=== PATIENT | female | born 1965 | race Caucasian/White ===

== ENCOUNTER 2020-05-22 10:16 | Outpatient (CLI) | payer BC, SELFPAY ==
--- NOTE | ~2020-05-22 | MM_ITS ---
EXAMINATION: MM screening [facility] BI w alex HISTORY: Screening mammogram TECHNIQUE: Craniocaudal and mediolateral oblique 3-D tomosynthesis images were obtained and synthetic 2-D images were generated. CAD analysis was submitted and interpreted. COMPARISON: 04/26/2019, 12/30/2017, 12/28/2016 BREAST PARENCHYMAL COMPOSITION: The breasts are heterogeneously dense, which may obscure small masses . FINDINGS: There is no evidence of suspicious mass, calcification, or architectural distortion to sugg est malignancy in either breast. There has been no suspicious interval change. IMPRESSION: 1. No mammographic evidence of malignancy. 2. Recommend routine screening mammography in one year. BI-RADS Category 1: Negative Reviewed, dictated and finalized at location A.
== END 2020-05-22 10:17 | disposition home or self-care (01) ==
PROVIDERS: PCP Emergency Medicine; Visit Provider Nurse Practitioner Obstetrics & Gynecology
DX: Z12.31 Encounter for screening mammogram for malignant neoplasm of breast (principal)
CPT/HCPCS: 77063; 77067

== ENCOUNTER 2020-08-27 11:27 | Outpatient (CLI) | payer BC, SELFPAY ==
--- NOTE | 2020-08-27 11:40 | ECG_ITS ---
Measurements Intervals [place] Rate: 44 P: 60 WI: 187 QRS: 34 QRSD: 86 T: 10 QT: 459 QTc: 395 Interpretive Statements SINUS BRADYCARDIA CANNOT RULE OUT SEPTAL INFARCT, AGE INDETERMINATE BORDERLINE ST-T WAVE ABNORMALITY- INFERIOR LEADS ABNORMAL ECG Electronically Signed On 08-27-2020 12:01:53 DETENTION SERGEANT by Samuel Brennan D.O.
== END 2020-08-27 11:28 | disposition home or self-care (01) ==
PROVIDERS: PCP Family Medicine; Visit Provider Family Medicine
DX: R00.1 Bradycardia, unspecified (principal); R94.31 Abnormal electrocardiogram [ECG] [EKG]
CPT/HCPCS: 93005

== ENCOUNTER 2020-08-29 15:10 | Outpatient (CLI) | payer BC, SELFPAY ==
--- NOTE | ~2020-08-29 | XR_ITS ---
EXAMINATION: XR chest 2V 08/29/2020 15:28 INDICATION: Shortness of breath PROCEDURE: 2 view chest COMPARISON: 07/24/2019 FINDINGS: The lungs are clear. The cardiomediastinal silhouette is within normal limits. There are no pleural effusions. There is no pneumothorax suspected. IMPRESSION: 1: NO ACUTE CARDIOPULMONARY DISEASE. Reviewed, dictated and finalized at location B. K REPAIRER
== END 2020-08-29 15:11 | disposition home or self-care (01) ==
LOC: ANHIMG 15:13
PROVIDERS: PCP Family Medicine; Visit Provider Family Medicine
DX: R06.02 Shortness of breath (principal)
CPT/HCPCS: 71046

== ENCOUNTER 2022-01-27 16:25 | Outpatient (CLI) | payer BC, SELFPAY ==
--- NOTE | ~2022-01-27 | MM_ITS ---
EXAMINATION: MM screening [facility] BI w alex HISTORY: Screening mammogram TECHNIQUE: Craniocaudal and mediolateral oblique 3-D tomosynthesis images were obtained and synthetic 2-D images were generated. CAD analysis was submitted and interpreted. COMPARISON: , 04/26/2019, 12/30/2017 bilateral screening mammogram examinations. BREAST PARENCHYMAL COMPOSITION: There are scattered areas of fibroglandular density. FINDINGS: There is no evidence of suspicious mass, calcification, or architectural distortion to sugg est malignancy in either breast. There has been no suspicious interval change. IMPRESSION: 1. No mammographic evidence of malignancy. 2. Recommend routine screening mammography in one year. BI-RADS Category 1: Negative Reviewed, dictated and finalized at location A.
--- NOTE | ~2022-01-27 | DEXA_ITS ---
Bone Density Report Name: DANE MATIAS Age: 56 Sex: Female Ethnicity: White Date of : 1965 Indication: postmenopausal; screening for osteoporosis; parental hip fracture; height loss; prior fracture; Referring Provider: ARIAN, DELIA Estrada Study: Bone densitometry was performed. Exam Date: January 27, 2022 Accession number: [id number] Bone Density: Region BMD T-score Z-score Classification AP Spine(L1-L4) 0.890 -1.4 -0.1 Osteopenia Femoral Neck (Left) 0.757 -0.8 0.4 Normal Total Hip (Left) 0.949 0.1 0.9 Normal Femoral Neck (Right) 0.759 -0.8 0.4 Normal Total Hip (Right) 0.939 0.0 0.8 Normal Total Hip Mean 0.944 0.1 0.9 Normal World Health Organization criteria for BMD impression classify patients as: Normal (T-score at or above -1.0), Osteopenia (T-score between -1.0 and -2.5), or Osteoporosis (T-score at or below -2.5). 10-year Fracture Risk(1): Major Osteoporotic Fracture 22% Hip Fracture 0.5% Reported Risk Factors: [place] (), Neck BMD=0.757, BMI=26.1, previous fracture, parental fracture (1) FRAX(R) Version 3.08. Fracture probability calculated for an untreated patient. Fracture probability may be lower if the patient has received treatment. Clinical Information Provided by Patient: Has had a low trauma fracture Parent has had a hip fracture Has used the following medications: Vitamin D Patient maximum height was 67.5 Menopause Age: 49 Drinks caffeinated beverages Onset of menses at age 15 Number of children 1 Impression: The patient has low bone mass, based on the Total Spine T-score. The patient has an estimated ten-year risk of hip fracture of 0.5% and an estimated ten-year risk of major fracture of 22%, based on the WHO FRAX algorithm. The patient has risk factors, including: parental hip fracture, previous fracture. Discussion: BONE DENSITY IS LOW AT ONE OR MORE SKELETAL SITES. THE PATIENT'S BMD AND CLINICAL RISK FACTORS CONTRIBUTE TO THIS PATIENT'S INCREASED RISK OF FRACTURE. This patient's lowest T-score is low at one or more skeletal sites. It meets the World Health Organization's (WHO) criteria for ?low bone mass? (T-score between -1.0 and -2.5). The patient's 10-year risk of a major osteoporotic fracture as calculated by FRAX exceeds the threshold where pharmacological therapy is recommended by the National Osteoporosis Foundation (NOF). However, all treatment decisions require clinical judgment and consideration of individual patient factors, including patient preferences, comorbidities, previous drug use, risk factors not captured in the FRAX model (e.g., frailty, falls, vitamin D deficiency, increased bone turnover, interval significant decline in bone density) and possible under or overestimation of fracture risk by FRAX. The patient
== END 2022-01-27 16:26 | disposition home or self-care (01) ==
LOC: ANHIMG 16:28
PROVIDERS: PCP Family Medicine; Visit Provider Nurse Practitioner Obstetrics & Gynecology
DX: Z12.31 Encounter for screening mammogram for malignant neoplasm of breast (principal); Z78.0 Asymptomatic menopausal state; M85.88 Other specified disorders of bone density and structure, other site
CPT/HCPCS: 77063; 77067; 77080

== ENCOUNTER 2022-11-18 17:32 | Emergency (ER) | payer BC, SELFPAY ==
--- NOTE | 2022-11-18 17:40 | ED.URI ---
HPI - URI/Sore Throat General Chief Complaint: Upper Respiratory Infection Stated Complaint: sore throat Time Seen by Provider: 11/18/22 17:40 History of Present Illness HPI Narrative: 56-year-old female presented for complaint of sore throat, onset this morning. She denies any associated symptoms. She denies sick contacts. She has taken DayQuil and ibuprofen for symptoms today. Related Data Home Medications Medication Instructions Recorded Confirmed multivitamin (Daily Multi-Vitamin 1 tablet PO DAILY 08/27/20 10/29/21 tablet) cholecalciferol (vitamin D3) 10 10 mcg PO DAILY 05/20/22 mcg (400 unit) capsule collagen, hydrolyzed 1 tablet PO 05/20/22 gram-ascorbate calcium 10 mg tablet tumeric 100 mg-saman 150 mg-olive cap PO 05/20/22 50 mg-oreg 150 mg-caprylate capsule Allergies Allergy/AdvReac Type Severity Reaction Status Date / Time midazolam Allergy Unknown RASH, Verified 11/18/22 17:39 AND HARD TO BREATH Review of Systems Review of Systems: CONSTITUTIONAL: Denies body aches, fever, chills, or sweats. EYES: Denies visual changes, redness, or discharge. ENT: Denies rhinorrhea, congestion, or otalgia. CARDIOVASCULAR: Denies chest pain, palpitations, or edema. RESPIRATORY: Denies dyspnea. GASTROINTESTINAL: Denies abdominal pain, nausea, vomiting, or diarrhea. SKIN: Denies rash, itching, or wounds. MUSCULOSKELETAL: Denies back pain, joint pain, or myalgia. NEUROLOGIC: Denies headache PMFSH Past Medical History Medical History (Updated 11/18/22 @ 17:53 by Bindu Briseno APRN) Alopecia Degenerative tear of left medial meniscus Vitamin D deficiency Surgical History Surgical History (Updated 11/18/22 @ 17:50 by Bindu Briseno APRN) History of arthroscopy of left knee (~2017) History of (~2001) History of elbow surgery (~1995) Hx of tonsillectomy Family History Family History Mother Patient's mother is , Onset Age: 87 Father Patient's father is , Onset Age: 89 Mother Family history of arthritis Social History Social History Smoking status: Never smoker Second hand tobacco smoke exposure: No Alcohol intake: current Exam Narrative: GENERAL: well-appearing, no acute distress. EYES: conjunctivae clear ENT: Mucous membranes moist. TM pearly calvillo with normal light reflex bilaterally; no tragal tenderness. Oropharynx mildly erythematous without lesions. Tonsils absent. No drooling, no hoarseness, no trismus, uvula midline. No tripod positioning, hot potato voice, or soft palate swelling. NECK: Supple. No lymphadenopathy CHEST: Clear to auscultation, breath sounds equal. No respiratory distress, speaks in full sentences. HEART: Regular rate and rhythm. No murmur heard. SKIN: Warm, dry, no rash. NEURO: Alert and oriented x3. Course Course Emergency Course: Patient is aware of diagnosis, understands and agrees to treatment plan. Anticipatory guidance given. Patient agrees to follow-up as directed and is aware of reasons to seek care at the emergency department. Portions of this record may have been created with voice recognition software Level of Care: Express Care Visit Vital Signs Vital signs: Vital Signs Temperature 97.7 F 11/18/22 17:44 Pulse Rate 58 L 11/18/22 17:44 Respiratory Rate 16 11/18/22 17:44 Blood Pressure 119/75 11/18/22 17:44 Pulse Oximetry 100 11/18/22 17:44 Temperature 97.7 F 11/18/22 17:44 Pulse Rate 58 L 11/18/22 17:44 Respiratory Rate 16 11/18/22 17:44 Blood Pressure 119/75 11/18/22 17:44 Pulse Oximetry 100 11/18/22 17:44 MDM - URI/Sore Throat MDM Narrative Medical decision making narrative: strep result reviewed with pt. Advise supportive treatments. Patient is appropriate for outpatient treatment and follow-up.
[2022-11-18 17:44] VITALS: BP 119/75; PULSE 58; RESP 16; TEMP 36.5; O2SAT 100
== END 2022-11-18 17:57 | disposition home or self-care (01) ==
PROVIDERS: Emergency Provider Nurse Practitioner Family; PCP Family Medicine
DX: J02.9 Acute pharyngitis, unspecified (principal); L65.9 Nonscarring hair loss, unspecified
CPT/HCPCS: 87081; 87880; 99213; G0463

== ENCOUNTER 2023-05-03 07:27 | Outpatient (CLI) | payer BC, SELFPAY ==
--- NOTE | ~2023-05-03 | MM_ITS ---
EXAMINATION: MM screening [facility] BI w alex HISTORY: Screening mammogram TECHNIQUE: Craniocaudal and mediolateral oblique 3-D tomosynthesis images were obtained and synthetic 2-D images were generated. CAD analysis was submitted and interpreted. COMPARISON: 01/27/2022, 05/22/2020, 04/26/2019 BREAST PARENCHYMAL COMPOSITION: The breasts are heterogeneously dense, which may obscure small masses . FINDINGS: No suspicious mass, calcification, or architectural distortion are identified in either wan ast to suggest malignancy. There has been no suspicious interval change. IMPRESSION: 1. No mammographic evidence of malignancy. 2. Recommend routine screening mammography in one year. BI-RADS Category 1: Negative Reviewed, dictated and finalized at location A.
== END 2023-05-03 07:28 | disposition home or self-care (01) ==
PROVIDERS: PCP Family Medicine; Visit Provider Family Medicine
DX: Z12.31 Encounter for screening mammogram for malignant neoplasm of breast (principal)
CPT/HCPCS: 77063; 77067

== ENCOUNTER 2023-09-05 08:00 | Outpatient (RCR) | payer BC, SELFPAY ==
--- NOTE | 2023-08-11 16:44 | PTOPEVAL1 ---
Assessment and note entered by Sincere Tavares, PT, DPT Evaluation Information Assessment Status Evaluation Diagnosis gurjit knee OA Subjective Information Pt states she is going to have to have knee replacement surgery in the next 1-2 years. She states she has done therapy in the last few years, she states that was useless. She states imaging shows bone on bone knee arthritis. She states she can do almost anything she wants, she plays pickleball, bikes, exercises, and does lots of walking. She states she really only has pain when she over exercises or wears poor footwear. Reported Pain Level Pain Score 0: Self Report Assessment PT Clinical Summary Luna presents to therapy today for her initial evaluation with a diagnosis of gurjit knee OA. Today she demonstrates good BLE strength and ROM. She demonstrates decreased lateral hip strength and body mechanics with functional squatting. Today she was instructed in a HEP to complete at home to prep for knee surgery, educated on proper body mechanics, and answered any pt questions. She would like to follow up in a month to review her HEP and manager body taught today. Plan of Care Interventions Gait Training,Neuro Re-education,Patient/Caregiver Educati,Therapeutic Activities,Therapeutic Exercise PT Services Indicated Yes Treatment Frequency and follow up in 1 month Duration These treatments will address the objective and functional deficits as defined above. The patient will be advanced safely and appropriately in order for the patient to progress towards his/her prior level of function. Additional exercises will be introduced and as well as a comprehensive home exercise program upon discharge, if needed, ?to ensure carryover of functional gains achieved in the clinic. This treatment plan has been reviewed and agreement upon by the patient.
--- NOTE | 2023-09-05 08:55 | PTOPDC ---
Assessment and note entered by Sincere Tavares, PT, DPT Evaluation Information Assessment Status Discharge Diagnosis gurjit knee OA Subjective Information Pt states she initially scored her LEFS scale wrong the first day, she scored herself a 48/80 compared to a 67/80 on the initial date. Pt states she has been completing her exercises daily at home, she states it is helping with her mobility, but not with her pain. Pt states her knee will buckle, she wanted to be sure there was a note of that. Reported Pain Level Pain Score 3: Self Report Assessment PT Clinical Summary Luna presents to therapy today for her progress report with a diagnosis of gurjit knee OA. She has completed her HEP for the last month and is here today to review. She continues to demonstrates good functional knee strength just needs intermittent cues for alignment. Her HEP was progressed today and she plans to continue this until she gets her TKA scheduled. Plan of Care PT Services Indicated No
== END 2023-09-05 10:08 | disposition home or self-care (01) ==
LOC: ANHGOSHPT 08:00
PROVIDERS: PCP Family Medicine; Visit Provider Orthopaedic Surgery
DX: M17.0 Bilateral primary osteoarthritis of knee (principal)
CPT/HCPCS: 97110; 97161; 97530

== ENCOUNTER 2023-10-05 09:44 | Outpatient (CLI) | payer BC, SELFPAY ==
--- NOTE | 2023-10-05 09:47 | ECG_ITS ---
Measurements Intervals [place] Rate: 50 P: 72 [place]: 187 QRS: 36 QRSD: 94 T: -13 QT: 420 QTc: 383 Interpretive Statements SINUS BRADYCARDIA CANNOT RULE OUT SEPTAL INFARCT, AGE INDETERMINATE BORDERLINE ST-T WAVE ABNORMALITY- INFERIOR LEADS ABNORMAL ECG COMPARED TO ECG 08/27/2020 11:50:20 HEART RATE HAS INCREASED Electronically Signed On 10-05-2023 10:20:37 HYDRODYNAMICS PROFESSOR by Samuel Brennan D.O.
== END 2023-10-05 09:45 | disposition home or self-care (01) ==
LOC: ANHCARD 09:47
PROVIDERS: PCP Family Medicine; Visit Provider Orthopaedic Surgery
DX: R00.1 Bradycardia, unspecified (principal); R06.02 Shortness of breath
CPT/HCPCS: 93005

== ENCOUNTER 2023-10-25 14:44 | Outpatient (CLI) | payer BC, SELFPAY ==
--- NOTE | ~2023-10-25 | CT_ITS ---
EXAMINATION: CT LE RT wo con DATE: 10/25/2023 15:34 INDICATION: Right knee primary osteoarthritis. TECHNIQUE: Computed tomography (CT) of the right lower limb was performed without intravenous contras t. Automated exposure control and iterative reconstruction technique were employed. The dose-length p roduct was 1795.42 mGy-cm. COMPARISON: Right knee radiographs 07/28/2023 FINDINGS: Bone alignment is normal. No fracture. There is mild right hip osteoarthritis. Right knee d emonstrates severe osteoarthritis of the medial compartment and mild osteoarthritis of the lateral an d patellofemoral compartments. There is a small knee joint effusion. There is a moderate-sized Faye' s cyst. IMPRESSION: 1. Severe right knee osteoarthritis. 2. Small knee joint effusion. 3. Moderate-sized Faye's cyst. 4. Mild right hip osteoarthritis. Reviewed, dictated and finalized at location A. AL TECHNOLOGY ADVISOR
== END 2023-10-25 14:45 | disposition home or self-care (01) ==
PROVIDERS: PCP Family Medicine; Visit Provider Orthopaedic Surgery
DX: M17.11 Unilateral primary osteoarthritis, right knee (principal); M25.461 Effusion, right knee; M71.21 Synovial cyst of popliteal space [Baker], right knee; M16.11 Unilateral primary osteoarthritis, right hip
CPT/HCPCS: 73700

== ENCOUNTER 2023-12-26 12:14 | Outpatient (CLI) | payer BC, SELFPAY ==
[2023-12-26 14:40] LABS: Basophils Absolute Auto 0.1 K/mm3 (0.0-0.1); Basophils Percent Auto 0.9 % (0.2-1.2); Eosinophils Absolute Auto 0.2 K/mm3 (0-0.3); Hematocrit 39.9 % (37.0-47.0); Hemoglobin 12.9 g/dL (12.0-15.0); Immature Granulocyte Absolute 0.01 K/mm3 (0.00-0.031); Immature Granulocyte Percent A 0.1 % (0-0.5); Lymphocytes Absolute Auto 2.25 K/mm3 (0.9-3.2); Lymphocytes Percent Auto 29.6 % (18.3-44.2); Mean Corpuscular HGB Conc 32.3 g/dl (32-36); Mean Corpuscular Hemoglobin 31.2 pg (26-34); Mean Corpuscular Volume 96.6 fl (80-100); Mean Platelet Volume 11.4 fl (7.4-10.4); Monocytes Absolute Auto 0.7 K/mm3 (0.1-0.6); Monocytes Percent Auto 9.4 % (2.6-8.5); Neutrophils Absolute Auto 4.3 K/mm3 (1.3-6.7); Platelet Count Result 254 k/mm3 (150-375); Red Blood Count 4.13 M/mm3 (4.2-5.4); Red Cell Distribution Width 12.5 % (11.5-14.5); White Blood Count 7.6 K/mm3 (4.5-10.0)
[2023-12-26 14:52] LABS: Urine Cotinine NEGATIVE
[2023-12-26 14:52] LABS: Albumin Level 4.5 g/dL (3.5-5.1); Estimated Glomerular Filt Rate > 60; Glucose 90 mg/dL (65-110)
[2023-12-26 14:54] LABS: Hemoglobin A1C 5.4 % (<5.7)
[2023-12-26 15:53] LABS: MRSA (PCR) NOT DETECTED (NOT DETECTE)
== END 2023-12-26 12:15 | disposition home or self-care (01) ==
LOC: ANHSURGERY 12:19
PROVIDERS: PCP Family Medicine; Visit Provider Orthopaedic Surgery
DX: M17.11 Unilateral primary osteoarthritis, right knee (principal); Z01.818 Encounter for other preprocedural examination
CPT/HCPCS: 80307; 82040; 82565; 82947; 83036; 85025; 87641

== ENCOUNTER 2024-01-24 00:43 | Day surgery (SDC) | payer BC, SELFPAY ==
[2023-12-26 12:23] VITALS: BMI 26.5
--- NOTE | 2023-12-26 12:44 | PC.NURSE ---
Report to the Outpatient Waiting Room, entrance under the green pavilion located off [facility], at time 0800 on date __01/24/24 . Planned Procedure Time: __1000 . Time changes happen often and if your time is changed the preop area will call you the afternoon before. - You and your visitor will be asked to self-screen and do not enter if you have any COVID symptoms. - A mask is optional within the hospital at this time. Patients may have clear liquids (water, carbonated beverages, clear teas, apple juice) until 3 hours prior to surgery( 7:00AM ) with a maximum of 20 ounces. - No food from midnight until time of surgery - Infants may have breast milk until 4 hours before surgery, formula 6 hours prior to surgery. - Children will be allowed to drink immediately following surgery. If applicable, please bring a bottle or sippy cup to assist with drinking. Juice, water, soda, and popsicles are readily available. For infants on formula, please bring formula the day of surgery. Pacifiers are allowed. Take the following medications with a SIP of water the morning of surgery: __NONE DO NOT STOP ANY OF YOUR OTHER PRESCRIPTION MEDICATIONS PRIOR TO SURGERY ?EXCEPT THE FOLLOWING Medications to discontinue per physician _HOLD ALL VITAMINS AND SUPPLEMENTS _7 DAYS PRE OP PT STATES PER DR THOMAS.LAST DOSE 01/16/24 Please no make-up, nail honduran, hairspray, perfume, deodorant, or body powder the day of surgery. No jewelry (including any body piercings) or valuables the day of surgery, leave them at home. Please take a shower or bath the night before, or the morning of, surgery with an antibacterial soap. Wear comfortable, loose fitting clothing. Children are encouraged to wear pajamas. - Jewelry must be removed prior to entering the operating room. Rings and piercings that are not removed may be cut off. - The hospital will not accept responsibility for valuables. - Please leave all valuables, including medications, at home the day of surgery. If you are going home after surgery, a licensed auto transport driver must drive you home. - NO public transportation without another adult if you receive anesthesia. - We recommend that an adult stay with you for 24 hours following discharge. - We also recommend that you do not drive, make important decision, drink alcoholic beverages, or take any drugs that were not prescribed by your health care provider for at least 24 hours after your discharge time. Follow any additional instructions given to you from your surgeon. If you or anyone in your household have experienced Covid symptoms in the past week, please notify your surgeon or the nurse liaison at the phone number below for possible testing. VERBAL AND WRITTEN instructions given to ___PATIENT and asked if any additional questions and then verbalized understanding. Patient advised to call surgeon office or pre surgery nurse liaison [phone] if any additional questions.
[2023-12-26 12:51] VITALS: BP 117/74; PULSE 61; RESP 18; TEMP 36.5; O2SAT 99
[2024-01-24] VITALS (16 sets, daily range): BP systolic 99–135; BP diastolic 63–78; PULSE 60–653; RESP 10–20; TEMP 35.6–36.8; O2SAT 95–100; BMI 26.2
--- NOTE | ~2024-01-24 | XR_ITS ---
EXAMINATION: [id number] DATE: 01/24/2024 13:31 CDT INDICATION: Right total knee arthroplasty TECHNIQUE: 2 views right knee FINDINGS: There is a right total knee arthroplasty in expected position. Subcutaneous gas with fluid and air in the joint are consistent with recent surgery. No evidence of periprosthetic fracture. IMPRESSION: 1. Recent right total knee arthroplasty. Reviewed, dictated and finalized at location B.
[2024-01-24] MEDS: ACETAMINOPHEN 500 MG TABLET 1000 MG PO (08:43)
[2024-01-24] MEDS: LACTATED RINGERS 1,000 ML 30 ML IV CONT ×2 (08:50→12:48)
--- NOTE | 2024-01-24 09:06 | WPDANESEPPF ---
Anes - Initial Pre Proc Eval Procedure: Operation Date: 01/24/24 10:00 Proposed Procedures p Right Custom Total Knee Replacement - Vik Casey MD Date/Time: 01/24/24 09:06 Surgeon: iVk Casey MD Pre Op Diagnosis: Prim O A Right Knee Patient Data Age: 58 Gender: F Height: 1.7 m Weight: 76.9 kg Last Vital Signs Temp 36.5 C 12/26/23 12:51 Pulse 61 12/26/23 12:51 Resp 18 12/26/23 12:51 BP 117/74 12/26/23 12:51 Pulse Ox 99 12/26/23 12:51 O2 Del Method Room Air 12/26/23 12:51 Allergies Allergy/AdvReac Type Severity Reaction Status Date / Time midazolam Allergy Unknown RASH, Verified 01/24/24 08:35 AND HARD TO BREATH Home Medications Medication Instructions Recorded Confirmed Type multivitamin (Daily Multi-Vitamin 1 tablet PO DAILY 08/27/20 01/24/24 History tablet) cholecalciferol (vitamin D3) 10 10 mcg PO DAILY 05/20/22 01/24/24 History mcg (400 unit) capsule collagen, hydrolyzed 1 1 tablet PO DAILY 05/20/22 01/24/24 History gram-ascorbate calcium 10 mg tablet loratadine 10 mg tablet (Claritin) 10 mg PO DAILY 01/24/24 01/24/24 History Patient hx anesthesia problems: none Family hx anesthesia problems: none Results Review: All pre-operative results and documents have been reviewed as part of the pre-operative evaluation. [facility] Past Medical History Medical History (Updated 01/24/24 @ 09:07 by Mihai Harvey DO) Alopecia Bradycardia Degenerative tear of left medial meniscus Hypothyroidism Vitamin D deficiency Surgical History Surgical History History of arthroscopy of left knee (~2017) History of (~2001) History of elbow surgery (~1995) Hx of tonsillectomy Family History Family History Mother Patient's mother is , Onset Age: 87 Father Patient's father is , Onset Age: 89 Mother Family history of arthritis Social History Social History Smoking status: Never smoker Second hand tobacco smoke exposure: No Additional smoking assessment comments: DENIES ANY FORM OF TOBACCO USE Alcohol intake: current Drinks per week: 2 Lack of Transportation: No Lack of Food: Never True Current Housing: I Have Housing Concerned About Future Housing: No Difficulty Paying Gas/Electric Bills: No Difficulty Paying for Meds: No Currently Unemployed: No Education: Master's Degree or Higher Difficulty w/ Childcare or Family Care: No Living arrangements: with family Spiritual care concerns: No Anes - Eval Final PreProcedure Day of Procedure 01/24/24 09:06 Patient weight: overweight Heart: regular rate and rhythm Lungs: clear to auscultation Airway: Mallampati scale class II Neurological: alert and oriented Last oral intake: >/= 8 hours ASA classification: II Emergent: no Anesthetic plan: proceed Anesthesia type and monitoring: general LMA and standard monitoring Results Review: All pre-operative results and documents have been reviewed as part of the pre-operative evaluation. Informed Consent: The patient's anesthetic plan and its attendant risks and benefits were discussed with the patient/family/POA. Questions were solicited and answers provided to the satisfaction of the patient/family/POA.
--- NOTE | 2024-01-24 09:43 | WPDHPUPDATE1 ---
History and Physical Update Update Date/Time: 01/24/24 09:43 History and Physical has been reviewed, including an updated exam of the patient. There are NO changes in the patient's condition. Risks, benefits, and alternatives have been discussed and questions answered. Patient agrees to proceed with procedure.
--- NOTE | 2024-01-24 09:53 | WPDANESPNB ---
Anes - Peripheral Nerve Block Date/Time: 01/24/24 09:53 I have discussed with the patient/family/POA the placement of a peripheral nerve block for post-operative pain management, including associated risks, benefits, complications, and side effects. Alternative methods of post-operative analgesia were detailed. Questions were solicited and answers provided to the satisfaction of the patient/family/POA. Time-Out: A pre-procedural Time-Out was completed immediately before starting the procedure and confirmed: Patient Identification, Site, Procedure, Patient Position and the Availability of Requisite Equipment. Clinical Indications: Acute post-operative pain management requested by the operative surgeon. Nerve Block Insertion Note Anes-nerve block: adductor canal right Patient position: supine Skin prep: chlorhexidine Needle: 22 gauge, stimulating, insulated echogenic needle. Needle length: 80 mm Technique: ultrasound Injectate: bupivacaine 0.5% with epi 5 mcg/ml (30cc - no epi) Observations: tolerated well Complications: none Procedure start time:: 1005 Procedure end time:: 100
[2024-01-24] MEDS: TRANEXAMIC ACID 1,000MG/ISO100 1,000 MG/100 ML BAG 200 MG IVPB (09:58)
[2024-01-24] MEDS: ceFAZolin 2 GM/D5W 50 ML 2 GM/50 ML BAG IVPB ×2 (10:18→17:25)
[2024-01-24] MEDS: SODIUM CHLORIDE 0.9% IV 37.7 ML, MORPHINE SULFATE INJ (*CRX) 2 MG, ROPivacaine HCL 1% 2... INFILTRATE (10:50)
[2024-01-24] MEDS: TRANEXAMIC ACID 1,000 MG/10 ML AMPUL 1000 MG IV PUSH (12:22)
--- NOTE | 2024-01-24 13:24 | P.OP_ITS ---
Procedure Note - Detailed Date of Procedure 01/24/24 Pre-op Diagnosis Right knee degenerative arthritis. Post-op Diagnosis Same Procedure Performed Total knee arthroplasty, right. Surgeon Vik Casey MD Children[employer] Literature Professor Roseann Bonilla PA-C Anesthesia General and Regional (Subsartorial block.) Findings Custom right total knee optimal fit. Slight PCL release. Anatomic tibial slope. No medial or lateral releases. Patella without significant disease. Subvastus quad sparing approach. Tourniquet during exposure and cementation only. Description of Procedure Preoperative antibiotics were given. The limb was prepped and draped in the u sual sterile fashion with a well-padded tourniquet high on the thigh. The limb was exsanguinated and the tourniquet inflated to 300 mmHg during exposure and cementation. A longitudinal incision was created just medial to the patella. A subvastus approach to the knee was performed. Arthrotomy was taken down through the joint capsule. No significant releases were initially taken. The femur was exposed and the F1 jig was applied. The coring tool was used to remove the cartilage for the F2 jig to sit flush with the bone. The jig was pinned and the distal cut carefully taken. Caliper measurements confirmed appropriate bony resections according to the preoperative templated plan. The F4 cutting jig for the femur was applied, at the standard rotation. The AP and anterior chamfer cuts were taken. The F5 jig was applied and the posterior chamfer cuts were taken. The tibia was prepared using the T1 jig, after removing cartilage for the jig contact points. Proper alignment was checked with the alignment paola. The tibia was cut using the T1u guide. Gap balancing was performed. Gap measurements were taken and the knee was trialed. Excellent alignment and soft tissue balancing was confirmed. The posterior cruciate ligament was recessed along the proximal tibia. Meniscal remnants were removed. The trial components were assembled. Excellent range of motion and proper soft tissue balancing were confirmed throughout the full range of motion. Patellar tracking was excellent. The knee was copiously irrigated periodically throughout the procedure. The real implants were cemented into position. Excess cement was carefully removed. The bipolar aquamantis device was used for additional hemostasis, as well as an additional dose of tranexamic acid. The wound was closed in layers with interrupted #1 Vicryl suture, #1 strata fix suture, 2-0 strata fix suture, 3-0 strata fix suture. Steri-Strips placed on the skin with the knee flexed. Sterile bulky dressing applied. The patient was brought to the recovery room in stable condition. There were no complications. Physician health information assistant, Roseann Bonilla PA-C, required for surgery; including patient positioning, draping, tissue retraction, maintaining instrument position, cement removal, wound closure, and dressing placement. Implants Conformis Custom total knee arthroplasty. Cemented. Cruciate retaining. 7C insert. Estimated Blood Loss 100 Drains No Complications No immediate complications Condition Stable Disposition PACU [facility] Billing Surgery - Charge Forward: Surgery Billing
[2024-01-24] MEDS: fentaNYL CITRATE INJ (*CRX) 100 MCG/2 ML VIAL 25 MCG IV PUSH (13:47)
--- NOTE | 2024-01-24 14:37 | PC.NURSE ---
Returned from OR per [ stretcher at 14:15]. Report received from [ Rosalinda, RN ].
[2024-01-24] MEDS: SODIUM CHLORIDE 0.9% IV 1,000 ML 125 ML IV CONT (15:02)
[2024-01-24] MEDS: traMADol HCL (*CRX) 50 MG TABLET PO (15:28)
[2024-01-24] MEDS: MELOXICAM 7.5 MG TABLET PO (17:24)
[2024-01-24] MEDS: predniSONE 5 MG TABLET PO (17:24)
[2024-01-24] MEDS: ACETAMINOPHEN 325 MG TABLET 650 MG PO ×2 (17:24→22:57)
[2024-01-24] MEDS: SENNA/DOCUSATE SODIUM TABLET 2 TAB PO (17:25)
[2024-01-24] MEDS: FAMOTIDINE 20 MG TABLET PO (21:10)
[2024-01-24] MEDS: ASPIRIN 81 MG ENTERIC TABLET PO (21:10)
--- NOTE | 2024-01-24 22:26 | PC.NURSE ---
This RN preceptor has read and agrees with student nurse Steele's notes and assessment.
[2024-01-24] MEDS: oxyCODONE/ACETAMINOPHEN (*CRX) 5-325 MG TABLET 1 TABLET PO (23:09)
[2024-01-25] MEDS: ceFAZolin 2 GM/D5W 50 ML 2 GM/50 ML BAG IVPB ×2 (02:59→10:02)
[2024-01-25 03:45] VITALS: BP 102/65; PULSE 56; RESP 16; TEMP 36.4; O2SAT 99
[2024-01-25 05:38] LABS: Basophils Percent Auto 0.3 % (0.2-1.2); Eosinophils Absolute Auto 0.1 K/mm3 (0-0.3); Eosinophils Percent Auto 0.3 % (0-4.4); Hematocrit 35.6 % (37.0-47.0); Hemoglobin 11.3 g/dL (12.0-15.0); Immature Granulocyte Absolute 0.05 K/mm3 (0.00-0.031); Immature Granulocyte Percent A 0.3 % (0-0.5); Lymphocytes Absolute Auto 1.55 K/mm3 (0.9-3.2); Lymphocytes Percent Auto 10.5 % (18.3-44.2); Mean Corpuscular HGB Conc 31.7 g/dl (32-36); Mean Corpuscular Volume 97.8 fl (80-100); Monocytes Absolute Auto 1.1 K/mm3 (0.1-0.6); Monocytes Percent Auto 7.3 % (2.6-8.5); Neutrophils Absolute Auto 12.1 K/mm3 (1.3-6.7); Neutrophils Percent Auto 81.3 % (45.5-73.1); Platelet Count Result 241 k/mm3 (150-375); Red Blood Count 3.64 M/mm3 (4.2-5.4); Red Cell Distribution Width 12.6 % (11.5-14.5); White Blood Count 14.8 K/mm3 (4.5-10.0)
[2024-01-25 05:47] LABS: Anion Gap 4 mmol/L (4-12); Blood Urea Nitrogen 10 mg/dL (7-17); Calcium 9.2 mg/dL (8.4-10.2); Carbon Dioxide 27 mmol/L (22-30); Chloride 107 mmol/L (98-107); Estimated CRCL calculation 82 ml/min; Estimated Glomerular Filt Rate > 60; Glucose 106 mg/dL (65-110); Potassium 3.9 mmol/L (3.4-5.0); Sodium 138 mmol/L (137-145)
[2024-01-25] MEDS: ACETAMINOPHEN 325 MG TABLET 650 MG PO (06:25)
[2024-01-25 07:45] VITALS: BP 114/70; PULSE 58; RESP 18; TEMP 36.4; O2SAT 100
[2024-01-25] MEDS: SENNA/DOCUSATE SODIUM TABLET 2 TAB PO (07:46)
[2024-01-25] MEDS: CHOLECALCIFEROL 400 UNITS TABLET (VIT D) PO (07:46)
[2024-01-25] MEDS: ASPIRIN 81 MG ENTERIC TABLET PO (07:46)
[2024-01-25] MEDS: MELOXICAM 7.5 MG TABLET PO (07:46)
[2024-01-25] MEDS: MULTIVITAMINS THERAPEUTIC TAB (*BKC) 1 TABLET PO (07:46)
[2024-01-25] MEDS: FAMOTIDINE 20 MG TABLET PO (07:46)
[2024-01-25] MEDS: polyethylene glycoL 3350 17 GM POWD.PACK PO (07:46)
[2024-01-25] MEDS: LORATADINE 10 MG TABLET PO (07:46)
--- NOTE | 2024-01-25 08:06 | PM.DS ---
DS: Admitting Diagnosis Discharge Date 01/25/24 Admitting Diagnosis Knee arthritis. DS: Discharge Diagnosis Discharge Diagnosis (1) Status post total right knee replacement: Code(s): Z96.651 - Presence of right artificial knee joint Status: Acute Plan Postop day 1: Right total knee arthroplasty. Patient tolerated procedure well. No complications. Pain manageable with pain medication. No numbness or tingling. We had a lengthy discussion regarding postoperative wound care, limitations, expectations, and exercises. Patient shows good understanding. She has had initial physical therapy and is tolerating it well. DVT prophylaxis: 81 mg baby aspirin b.i.d. for 14 days. Pain medication: Percocet. Prednisone. Meloxicam. Patient has followup appointment with Dr. Casey in 3 weeks. DS: Summary Hospital Course Reason for hospitalization: Total knee arthroplasty Hospital Course: Patient tolerated procedure well. Has had initial PT/OT. No complications. Pain well managed. Status at Discharge Functional status at discharge: uses cane/walker Overall status at discharge: patient is progressing back to baseline Time Spent with Patient Time attestation: Total time spent providing and/or coordinating discharge services: Exam Narrative: Normal weight 58 y/o Female. Resting comfortably in bed. No acute distress. A&O x3. Wearing compression socks on left knee. Right knee with milton wrap. Dressing dry and intact with no drainage. Mild swelling. No ecchymosis. No erythema. No hematoma. Good early range of motion. Good quad function. Calf nontender. Neurologic status intact. No varicosities. Distal pulses palpable. DS: Data Data Completed and Pending Labs on day of discharge: Labs from last 24 hours 01/25/24 01/24/24 05:07 08:39 WBC 14.8 H RBC 3.64 L Hgb 11.3 L Hct 35.6 L MCV 97.8 MCH 31.0 MCHC 31.7 L RDW 12.6 Plt Count 241 MPV 11.0 H Immature Gran % (Auto) 0.3 Neut % (Auto) 81.3 H Lymph % (Auto) 10.5 L [place]ac[place] % (Auto) 7.3 Eos % (Auto) 0.3 Baso % (Auto) 0.3 Lymph # (Auto) 1.55 [place] # (Auto) 1.1 H Eos # (Auto) 0.1 Baso # (Auto) 0.0 Abs Immat Gran (auto) 0.05 H Absolute Neuts (auto) 12.1 H Absolute Nucleated RBC 0.000 Nucleated RBC % 0.0 Sodium 138 Potassium 3.9 Chloride 107 Carbon Dioxide 27 Anion Gap 4 BUN 10 Creatinine 0.60 L Estim Creat Clear Calc 82 Estimated GFR > 60 Glucose 106 Calcium 9.2 Blood Type A Positive Antibody Screen Negative Discharge Plan Discharge Patient Disposition: Home, Self-Care Discharge Instructions: See green instruction sheets Stand Alone Forms: General Discharge Instructions Follow-up/Referrals: Roseann Bonilla PA [Physician Furnace Filler] - Discharge Medications: New meloxicam 15 mg tablet 15 mg PO DAILY Qty: 30 0RF Rx Instructions: Cut in half. Take 1/2 in morning and 1/2 at night. Take with food. Stop if stomach upset. prednisone 5 mg tablet 5 mg PO DAILY 21 Days Qty: 21 0RF aspirin 81 mg tablet,delayed release (DR/EC) 81 mg PO BID 14 Days Qty: 28 0RF oxycodone-acetaminophen 5-325 mg tablet 1 - 2 tablet PO Q4-6H MDD 6 PRN (Reason: pain) Qty: 30 0RF Continued multivitamin [Daily Multi-Vitamin] Tablet 1 tablet PO DAILY collagen,hydrolyz-ascorbate Ca 1 gram- 10 mg tablet 1 tablet PO DAILY cholecalciferol (vitamin D3) 10 mcg (400 unit) capsule 10 mcg PO DAILY loratadine [Claritin] 10 mg Tablet 10 mg PO DAILY
[2024-01-25] MEDS: oxyCODONE/ACETAMINOPHEN (*CRX) 5-325 MG TABLET 1 TABLET PO (08:38)
--- NOTE | 2024-01-25 09:17 | WPDANESPN ---
Anes - Prog Note Post-Op Date/Time: 01/25/24 09:17 Cardiovascular status: normal Respiratory status: normal Airway patency: baseline Mental status: baseline Post-Op hydration status: normal Vital Signs: Last Vital Signs Temp 36.4 C 01/25/24 07:45 Pulse 58 L 01/25/24 07:45 Resp 18 01/25/24 07:45 BP 114/70 01/25/24 07:45 Pulse Ox 100 01/25/24 07:45 O2 Del Method Room Air 01/25/24 08:05 O2 Flow Rate 8 01/24/24 13:20 Pain Score (VAS): 0 I/O: Intake & Output 01/24/24 01/25/24 01/25/24 23:59 07:59 15:59 Intake Total 660 400 Balance 660 400 Laboratory Tests 01/25/24 05:07 01/25/24 05:07 01/24/24 01/25/24 08:39 05:07 WBC 14.8 H RBC 3.64 L Hgb 11.3 L Hct 35.6 L MCV 97.8 MCH 31.0 MCHC 31.7 L RDW 12.6 Plt Count 241 MPV 11.0 H Immature Gran % (Auto) 0.3 Neut % (Auto) 81.3 H Lymph % (Auto) 10.5 L Victoria % (Auto) 7.3 Eos % (Auto) 0.3 Baso % (Auto) 0.3 Lymph # (Auto) 1.55 [place] # (Auto) 1.1 H Eos # (Auto) 0.1 Baso # (Auto) 0.0 Abs Immat Gran (auto) 0.05 H Absolute Neuts (auto) 12.1 H Absolute Nucleated RBC 0.000 Nucleated RBC % 0.0 Sodium 138 Potassium 3.9 Chloride 107 Carbon Dioxide 27 Anion Gap 4 BUN 10 Creatinine 0.60 L Estim Creat Clear Calc 82 Estimated GFR > 60 Glucose 106 Calcium 9.2 Blood Type A Positive Antibody Screen Negative Post-procedural complaints: none Patient Feedback: Patient satisfied with anesthetic care.
== END 2024-01-25 10:40 | disposition home or self-care (01) ==
LOC: ANHSURGERY 09:00 → ANH3MEDSUR 14:02
PROVIDERS: Physician Assistant Surgical; PCP Family Medicine; Visit Provider Orthopaedic Surgery
PROC: (CPT 27447; principal; 2024-01-24 10:00)
DX: M17.11 Unilateral primary osteoarthritis, right knee (principal); G89.18 Other acute postprocedural pain; E55.9 Vitamin D deficiency, unspecified
CPT/HCPCS: 27447; 64447; 36415; 73560; 80048; 85025; 86850; 86900; 86901; 97110; 97161; 97165; A9270; C1713; C1776; J0171; J0690; J1100; J1170; J1885; J2250; J2270; J2405; J2704; J2795; J3010; J7030; J7120; J7512

== ENCOUNTER 2024-03-13 07:22 | Outpatient (CLI) | payer BC, SELFPAY ==
--- NOTE | ~2024-03-13 | XR_ITS ---
XR knee RT 3V Ordering provider: Vik Casey MD History: . joint replacment RECENT . Comparison: July 28, 2023 FINDINGS: BONES: No acute fracture or dislocation. JOINT SPACES: Total knee arthroplasty. SOFT TISSUES: Normal. IMPRESSION: No acute osseous abnormality right knee. Reviewed, dictated and finalized at location A.
== END 2024-03-13 07:23 | disposition home or self-care (01) ==
PROVIDERS: PCP Family Medicine; Visit Provider Orthopaedic Surgery
DX: Z96.651 Presence of right artificial knee joint (principal)
CPT/HCPCS: 73562

== ENCOUNTER 2024-06-05 15:02 | Outpatient (CLI) | payer BC, SELFPAY ==
--- NOTE | ~2024-06-05 | XR_ITS ---
XR knee RT 3V Ordering provider: Vik Casey MD History: . Z96.651 - Presence of right artificial knee joint . Comparison: March 13, 2024 FINDINGS: BONES: No acute fracture or dislocation. JOINT SPACES: Total knee arthroplasty. SOFT TISSUES: Normal. IMPRESSION: No acute osseous abnormality. Total knee arthroplasty. Reviewed, dictated and finalized at location A.
--- NOTE | ~2024-06-05 | XR_ITS ---
XR knee LT min 4V Ordering provider: Vik Casey MD History: . M17.12 - Unilateral primary osteoarthritis, left knee . Comparison: October 26, 2021 FINDINGS: BONES: No acute fracture or dislocation. JOINT SPACES: Severe narrowing of the medial compartment. SOFT TISSUES: Normal. IMPRESSION: No acute osseous abnormality left knee. Severe osteoarthritic changes Reviewed, dictated and finalized at location A.
== END 2024-06-05 15:03 | disposition home or self-care (01) ==
LOC: ANHIMG 15:04
PROVIDERS: PCP Family Medicine; Visit Provider Orthopaedic Surgery
DX: M17.12 Unilateral primary osteoarthritis, left knee (principal); Z96.651 Presence of right artificial knee joint
CPT/HCPCS: 73562; 73564

== ENCOUNTER 2024-06-08 07:41 | Outpatient (CLI) | payer BC, SELFPAY ==
--- NOTE | ~2024-06-08 | MM_ITS ---
EXAMINATION: MM screening [facility] BI w alex HISTORY: Screening mammogram TECHNIQUE: Craniocaudal and mediolateral oblique 3-D tomosynthesis images were obtained and synthetic 2-D images were generated. CAD analysis was submitted and interpreted. COMPARISON: 05/03/2023, 01/27/2022, 05/22/2020, 04/26/2019 BREAST PARENCHYMAL COMPOSITION:Dense: The breasts are heterogeneously dense, which may obscure small masses. FINDINGS: No suspicious mass, calcification, or architectural distortion are identified in either wan ast to suggest malignancy. There has been no suspicious interval change. IMPRESSION: No mammographic evidence of malignancy. Recommend routine screening mammography in one year. BI-RADS Category 1: Negative Reviewed, dictated and finalized at location .
== END 2024-06-08 07:42 | disposition home or self-care (01) ==
LOC: ANHIMG 07:43
PROVIDERS: PCP Family Medicine; Visit Provider Family Medicine
DX: Z12.31 Encounter for screening mammogram for malignant neoplasm of breast (principal)
CPT/HCPCS: 77063; 77067

== ENCOUNTER 2024-06-10 18:12 | Emergency (ER) | payer BC, SELFPAY ==
[2024-06-10 18:25] VITALS: BP 123/75; PULSE 60; RESP 16; TEMP 37.2; O2SAT 99
--- NOTE | 2024-06-10 18:42 | ED.URI ---
HPI - URI/Sore Throat General Chief Complaint: Upper Respiratory Infection Stated Complaint: Sore Throat Time Seen by Provider: 06/10/24 18:28 Source: patient and RN notes reviewed Mode of arrival: ambulatory Limitations: no limitations History of Present Illness HPI Narrative: Patient presents today complaining of sore throat and postnasal drip since yesterday. Denies cough, congestion, rhinorrhea. Currently rates her pain 8/10 and has been taking vitamin-C, cold and flu medicine, and Tylenol with mild relief. Related Data Home Medications Medication Instructions Recorded Confirmed multivitamin (Daily Multi-Vitamin 1 tablet PO DAILY 08/27/20 06/10/24 tablet) cholecalciferol (vitamin D3) 10 10 mcg PO DAILY 05/20/22 06/10/24 mcg (400 unit) capsule collagen, hydrolyzed 1 1 tablet PO DAILY 05/20/22 06/10/24 gram-ascorbate calcium 10 mg tablet loratadine 10 mg tablet (Claritin) 10 mg PO DAILY 01/24/24 06/10/24 Allergies Allergy/AdvReac Type Severity Reaction Status Date / Time midazolam Allergy Unknown RASH, Verified 06/10/24 18:25 AND HARD TO BREATH Review of Systems Review of Systems: CONSTITUTIONAL: Denies body aches, fever, chills, or sweats. EYES: Denies visual changes, redness, or discharge. ENT: Denies rhinorrhea, congestion, or otalgia.+ sore throat, postnasal drip CARDIOVASCULAR: Denies chest pain, palpitations, or edema. RESPIRATORY: Denies cough or dyspnea. GASTROINTESTINAL: Denies abdominal pain, nausea, vomiting, or diarrhea. GENITOURINARY: Denies dysuria or hematuria. SKIN: Denies rash, itching, or wounds. MUSCULOSKELETAL: Denies back pain, joint pain, or myalgia. NEUROLOGIC: Denies headache, numbness, tingling, or weakness. PSYCH: Denies depression or anxiety. [facility] Past Medical History Medical History Alopecia Bradycardia Degenerative tear of left medial meniscus Hypothyroidism Vitamin D deficiency Surgical History Surgical History History of arthroscopy of left knee (~2017) History of (~2001) History of elbow surgery (~1995) Hx of tonsillectomy Family History Family History Mother Patient's mother is , Onset Age: 87 Father Patient's father is , Onset Age: 89 Mother Family history of arthritis Social History Social History Smoking status: Never smoker Second hand tobacco smoke exposure: No Additional smoking assessment comments: DENIES ANY FORM OF TOBACCO USE Alcohol intake: never Drinks per week: 2 Substance use: never Do You Feel Safe in your Home?: Yes Lack of Transportation: No Lack of Food: Never True Current Housing: I Have Housing Concerned About Future Housing: No Difficulty Paying Gas/Electric Bills: No Difficulty Paying for Meds: No Currently Unemployed: No Education: Decline to Answer Difficulty w/ Childcare or Family Care: No Living arrangements: with family Spiritual care concerns: No Comments At time of signature, I have reviewed and agree with nursing past medical, surgical, social and family history unless otherwise noted. Please see nursing chart for further information. There is no relevant family history pertinent to the presenting complaint Exam Narrative: GENERAL: Well-appearing, well-nourished, and in no acute distress. HEAD: Normocephalic, atraumatic. EYES: EOMI. No redness or drainage. Conjunctivae normal. ENT: Mucous membranes pink and moist. Nares clear. No rhinorrhea. TMs normal bilaterally. Throat normal. Uvula midline. NECK: Normal AROM. Supple. No lymphadenopathy. CHEST: No respiratory distress. Clear to auscultation. HEART: Regular rate and rhythm. No murmur appreciated. EXTREMITIES: No
[2024-06-10 18:43] LABS: EDSTREPNEGPOS1 Negative (Negative)
== END 2024-06-10 18:46 | disposition home or self-care (01) ==
PROVIDERS: Emergency Provider Nurse Practitioner; PCP Family Medicine
DX: J06.9 Acute upper respiratory infection, unspecified (principal); E03.9 Hypothyroidism, unspecified; E55.9 Vitamin D deficiency, unspecified; L65.9 Nonscarring hair loss, unspecified
CPT/HCPCS: 87081; 87880; 99213; G0463

== ENCOUNTER 2025-02-26 10:45 | Outpatient (CLI) | payer SELFPAY ==
--- NOTE | ~2025-02-26 | CT_ITS ---
EXAMINATION: CT LE LT wo con DATE: 02/26/2025 11:22 INDICATION: Left knee osteoarthritis for preoperative planning TECHNIQUE: High resolution computed tomography (CT) of the left lower extremity from the hip through the ankle was performed without intravenous contrast. Additional sagittal and coronal reconstructions were performed. Automated exposure control and iterative reconstruction technique were employed. The dose-length product was 1904.34 mGy-cm. COMPARISON: None FINDINGS: Alignment is normal. No fracture or evident osteonecrosis. Polyarticular osteoarthritis, mild at the left hip and bilateral sacroiliac joints. Traumatic compartment osteoarthritis at the left knee, mode rate to severe in the medial compartment where vacuum phenomena delineates deep chondral ulceration a long the medial tibial plateau and anterior weightbearing medial femoral condyle. No left knee joint effusion. Additional mild osteoarthritis at the left ankle and a few of the visualized joints in the mid and forefoot. There is likely mild Achilles tendinosis with fusiform thickening and subtle decrea sed central attenuation of the tendon centered approximately 4-5 cm above level of the calcaneal inse rtion. 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 Bladder, uterus and visualized bowels and the pelvis are unremarkable. No free fluid. No pathologically enlarged pelvic or inguinal lymphadenopathy. IMPRESSION: 1. Moderate to severe osteoarthritis in medial compartment of the left knee. 2. Achilles tendinosis. Reviewed, dictated and finalized at location A.
--- OUTSIDE RECORDS SUMMARY | 2025-02-26 11:12 | XMS_ITS | Clinical Summary ---
Author Organization [facility] Address [address] [place] [id number] Care Team Providers Care Groundskeeper Supervisor Name Role Phone Jeannine Hollis MD Primary Care Provider [phone] Allergies Active Allergy Reactions Criticality Noted Date Comments Amoxicillin Unknown 09/29/2022 Medications albuterol HFA (PROVENTIL HFA,VENTOLIN HFA,PROAIR HFA) 90 mcg/actuation inhaler INHALE 1 PUFF BY MOUTH EVERY 4 HOURS NEEDED FOR SHORTNESS OF BREATH AND FOR WHEEZING 2 Active ixwkchkh-idz-rj rrous fumarate (Multi Vitamin) 9 mg iron/15 mL liquid Multi Vitamin Active cholecalciferol (VITAMIN D-3) 400 unit capsule Active Active Problems Problem Noted Date Diagnosed Date Bradycardia by electrocardiography 09/29/2022 Surgical History Surgery Date Site/Laterality Comments SECTION 09/26/2001 - 09/25/2002 Medical History Medical History Date Comments Shortness of breath Bradycardia Family History Medical History Relation Name Comments carcinoma Father Alzheimer's disease Mother Relation Name Status Comments Father Mother Son Alive Social History Tobacco Use Types Packs/Day Years Used Date Smoking Tobacco: Never Tobacco Cessation:Counseling Given: Not Answered Personal Safety Answer Date Recorded Getting School Help Needed Not on file 10/13 Comments Unknown Sex and Gender Information Value Date Recorded Sex Assigned at Not on file Legal Sex Female 11:47 AM 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 Gender Identity Not on file Sexual Orientation Not on file Obstetrics History Last Filed Vital Signs Vital Sign Reading Time Taken Comments Blood Pressure 114/72 11/10/2022 8:36 AM 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 Pulse 60 11/10/2022 8:36 AM 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 Temperature - - Respiratory Rate - - Oxygen Saturation 97% 11/10/2022 8:36 AM 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 Inhaled Oxygen Concentration - - Weight 75.3 kg (166 lb) 11/10/2022 8:36 AM 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 Height 170.2 cm (5' 7) 11/10/2022 8:36 AM 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 Body Mass Index 26 11/10/2022 8:36 AM 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 Plan of Treatment Health Maintenance Due Date Last Done Comments Breast Cancer Screening-Mammogram 1965 Cervical Cancer Screening 1965 Colon Cancer Screening-Colonoscopy 1965 Depression Screening 1965 Hepatitis C Screening 1965 DTaP/Tdap/Td Vaccine (1 - Tdap) 12/23/1974 Hepatitis B Screening 12/23/1981 Regular Well Visit/Exam 18-64 12/23/1981 Zoster Vaccine (1 of 2) 12/23/2013 Influenza Vaccine (Season Ended) 2025 Pneumococcal vaccine <65 Aged Out No longer eligible based on patient's age to complete this topic Insurance [employer] [place] Care Teams Groundskeeper Supervisor Relationship Specialty Start Date End Date Jeannine Hollis MD PCP - General Family Medicine 09/24/22
--- OUTSIDE RECORDS SUMMARY | 2025-02-26 11:12 | XMS_ITS | Referral Summary ---
Author Organization [facility] Address [address] [place] [id number] Care Team Providers Care Sow Farm Barn Technician Name Role Phone Jeannine Hollis MD Primary Care Provider [phone] Allergies Active Allergy Reactions Criticality Noted Date Comments Amoxicillin Unknown 09/29/2022 Medications albuterol HFA (PROVENTIL HFA,VENTOLIN HFA,PROAIR HFA) 90 mcg/actuation inhaler INHALE 1 PUFF BY MOUTH EVERY 4 HOURS NEEDED FOR SHORTNESS OF BREATH AND FOR WHEEZING Active fmfrrvqr-cgj-hu rrous fumarate (Multi Vitamin) 9 mg iron/15 mL liquid Multi Vitamin Active cholecalciferol (VITAMIN D-3) 400 unit capsule Active Active Problems Problem Noted Date Diagnosed Date Bradycardia by electrocardiography 09/29/2022 Social History Tobacco Use Types Packs/Day Years Used Date Smoking Tobacco: Never Tobacco Cessation:Counseling Given: Not Answered Personal Safety Answer Date Recorded Getting School Help Needed Not on file 10/13 Comments Unknown Sex and Gender Information Value Date Recorded Sex Assigned at Not on file Legal Sex Female 11:47 AM QC TECH Gender Identity Not on file Sexual Orientation Not on file Last Filed Vital Signs Vital Sign Reading Time Taken Comments Blood Pressure 114/72 11/10/2022 8:36 AM QC TECH Pulse 60 11/10/2022 8:36 AM QC TECH Temperature - - Respiratory Rate - - Oxygen Saturation 97% 11/10/2022 8:36 AM QC TECH Inhaled Oxygen Concentration - - Weight 75.3 kg (166 lb) 11/10/2022 8:36 AM QC TECH Height 170.2 cm (5' 7) 11/10/2022 8:36 AM QC TECH Body Mass Index 26 11/10/2022 8:36 AM QC TECH Plan of Treatment Not on [place] [place] [phone] [employer] [place] [address] [place] [address] Care Teams Sow Farm Barn Technician Relationship Specialty Start Date End Date Jeannine Hollis MD PCP - General Family Medicine 09/24/22
--- OUTSIDE RECORDS SUMMARY | 2025-02-26 11:12 | XMS_ITS | Data Portability ---
Author Organization [facility] Address [address] [place] [address] Care Team Providers Care Development Coach Name Role Phone WALLY JUSTIN Primary Care Provider Assessment Encounter Date Assessment Date Assessment LastModified by Organization Details LastModified Time 04/23/2020 04/23/2020 Annual gynecological exam performed. Patient will come back in a year unless there are new symptoms. [email or web address] Not available 04/23/2020 11:07:14 04/29/2021 04/29/2021 Annual gynecological exam performed. Patient will come back in a year unless there are new symptoms. Not available 04/29/2021 09:51:33 05/17/2022 05/17/2022 Annual gynecological exam performed. Patient will come back in a year unless there are new symptoms. Not available 05/17/2022 09:44:45 Plan of Treatment Reminders Order Date Submit Date Provider Last Modified By Organization Details Last Modified Time Details Appointments None recorded. Lab CMP, serum or plasma 2020 021 [facility], [address], [place], [address], 12:15:05 TSH, serum or plasma 2020 021 [facility], [address], [place], [address], 12:15:05 CBC w/ auto diff 2020 021 [facility], [address], [address], [place], [address], 1 12:15:05 HbA1c (hemoglobin A1c), blood 2020 021 [facility], [address], [address], [place], [address], 1 12:15:05 lipid panel, serum 2020 021 [facility], [address], [address], [place], [address], 1 12:15:06 vitamin D, 1,25-dihydr oxy, serum [address], [address], [address], [place], [address], 1 17:09:02 TSH, serum or plasma 2019 020 [facility], [address], [address], [place], [address], 0 11:22:21 thyroglobul in Ab, serum 2019 020 [facility], [address], [address] Doyle, [place], [address], 0 10:53:44 T3, free, serum or plasma 2019 020 [facility], [address], [address], [place], [address], 0 10:53:44 T4, free, serum 2019 020 [facility], [address], [place], [address], 0 10:53:44 thyroid peroxidase (tpo) Ab, serum 2019 [facility], [address], [address], [place], [address], 0 10:53:44 T3, total, serum 2019 [facility], [address], [address], [place], [address], 0 23:18:38 T4, free, serum 2019 [facility], [address], [address], [place], [address], 0 23:18:38 TSH, serum or plasma 2019 [facility], [address], [address], [place], [address], 0 23:18:38 vitamin D, 25-hydroxy, total, serum 2019 [facility], [address], [address], [place], [address], 0 23:18:38 lipid panel, serum 2019 [facility], [address], [address], [place], [address], 0 23:18:39 CMP, serum or plasma 2019 [facility], [address], [address], [place], [address], 0 23:48:21 CBC w/ auto diff 2019 [facility], [address], [address], [place], [address], 0 23:18:39 HbA1c (hemoglobin A1c), blood 2019 [facility], [address], [address], [place], [address], 0 23:18:39 Referral None recorded. Procedures None recorded. Surgeries None recorded. Imaging None recorded. Medication Orders None recorded. Patient TargetsNo targets recorded. Patient InstructionsNo instructions recorded. Reason for Referral None Reported. Results Created Date Observation Date Name Description Value Unit Range Abnormal Flag Note LastModifiedBy Organization Detail LastModifiedTime 04/23/20 20 04/25/2020 pap, LB Pap test thin prep Negati ve for Intrae pithel ial Lesion or Malign paul normal ACCES SMILEY #: [id number] Sourc e: Cervi jose e/E ndoce rvica l LMP: 02/12 Date Taken : 04/23 Speci men Type: ThinP rep Vial Date Repor km: 2019 Clini jose e Data: Cytot ech: Colby Lemons cki CT( CP) Date Repor km: 2019 Speci men Adequ acy: Satis facto ry for evalu ation Gener al Categ oriza tion: NEGAT CHERIE FOR INTRA EPITH ELIAL LESIO N OR MALIG HUGO Inter preta tion/ Resul t: Atrop hy Comme nts/R ecomm endat ions: Infla mmati on This speci men has been elmer zed by the ThinP rep Imagi ng Syste m, an inter activ e compu ter syste m which monalisa ts the lab in the scree eliot of ThinP rep Pap Test slide sNisha gracia imagi ng, the slide was revie wed by a Cytot echno logis t and/o r Patho logis t. D N A A S S A Y S R E P O R T TEST NAME RESUL TS ----- ---- ----- -- HPV High Risk Scree n (TMA) ThinP rep Vial The human papil lomav irus (HPV) High Risk Scree n is an FDA-a pprov ed in-vi tro ampli fied nucle ic acid test for the quali tativ e detec tion of E6/E7 viral mRNA. Resul ts christa arthur be corre lated with patie nt prese ntati on, histo ry, cervi jose e cytol ogy and other clini jose e and labor atory findi ngs. See https ://Bracketz/s it/ defau lt/fi 0 - [id number] _002_ 01.pd f for furth er infor reaganio n. Test perfo rmed by [employer], [address], [place] [address] , Vinh Florian ra, , Labor atory Dire tor. HPV High Risk *HPV NOT DETEC KM (TYPE S 16, 18, 31, 33, 35, 39, 45, 51, 52, 56, 58, 59, 66, 68) *HPV: The human papil lomav irus (HPV) High Risk Josy dow is an FDA-a pprov ed in-vi tro ampli fied nucle ic acid test for the quali tativ e detec tion of E6/E7 viral mRNA. Resul ts shoul d be corre lated with patie nt prese ntati on, histo ry, cervi jose e cytol ogy and other clini jose e and labor atory findi ngs. See https ://Bracketz/s ites/ defau lt/fi 018-0 /AW- [id number] _002_ 01.pd f for furth er infor reaganio n. Test perfo rmed by [employer], [address], [place] [address] , Vinh Florian ra, , Labor atory Dire tor. End of Repor t Techn ical servi kel provi ded by [employer], [employer], [address] [place] [address] Braxton Coats MD, Labor atory Dire tor. Case revie wed and diagn osis rende red at [employer] [facility], [address] [place] [address] Braxton Coats MD, Labor atory Direc tor. CONFI DENTI AL Not Available [facility]) [address], [place], [address], 04/25/2020 12:00:53 04/23/20 20 04/25/2020 HPV DNA, high- risk HPV high risk NOT DETECT ED normal Not Available [facility] ([facility]) [address], [place], [address], 04/25/2020 12:00:53 05/17/20 22 05/17/2022 IMAGE GUIDE D PAP AND HPV REGAR DLESS image guided Pap, HPV regardless of Pap result SEE RESULT S BELOW CASE REPOR T: Cytol ogy Gynec ologi jose e Repor t Case: [id number] Autho rowan garcia Provi royce: Eliezer Candelario Colle cted: 05/17 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 FINAL DIAGN OSIS: Unsat isfac tory for evalu ation . Scant squam ous cellu larit y due to exces s obscu ring infla mmato ry cells . Elect rohan jorge d by Wilma Reed on 2021 at 3:49 PM ----- ----- ----- ----- ----- ----- ----- ----- ----- ----- ----- ----- ----- ----- ----- ----- ----- ---- HPV RESUL TS: HPV mRNA E6/E7 : No HPV mRNA Detec km NOTE: This high risk HPV mRNA assay detec ts fourt een high- risk HPV types (16, 18, 31, 33, 35, 39, 45, 51, 52, 56, 58, 59, 66, 68) witho ut diffe renti ation . COMME NT: Note: This speci men was revie wed by a Cytot echno logis t and/o r Patho logis t (as indic ated in this repor t) after evalu ation using the Thinp rep Imagi ng Syste m. CLINI JOSE E INFOR MATIO N: Menst rual Statu s: LMP (if appli cable ): Clini jose e Histo ry/Pr eviou s Pap: Type of Neopl sahil (if appli cable ): Signi fican t Clini jose e Findi ngs: Other Histo ry: Hormo ibrahima (if appli cable ): Not Available [facility] [address] [place], [address], 05/21/2022 16:51:29 05/22/20 20 05/22/2020 MAMMO , scree eliot, bilat eral No observ ation record ed. [facility] ([facility]) [address] [place] [address], [place], [address], 06/03/2020 18:31:55 01/29/20 22 01/27/2022 MAMMO , scree eliot, bilat eral No observ ation record ed. [address] [facility], [place], [address], 02/01/2022 20:54:54 02/05/20 22 DEXA, axial skele ton + verte bral fract ure asses sment No observ ation record ed. [email or web address] [facility] [address], [place], [address], 02/11/2022 16:03:57 Result Notes Documentation Provider Name and Address Organization Details Recorded Time General Health Panel, Blood : vit D pending L Ayran [facility] 05/13/2021 13:27:09 Problems Name Problem SNOMED Code Status Onset Date Resolution Date Notes Provider Name and Address Organization Details Recorded Time SNOMED CT Concept Completed 201705/17/2022 Encntr for general adult medical exam w/o abnormal findings; Recorded Elsewhere : No Locati on: [facility] So urce: EHR Chron ic: N Practic e ID: [id number] Bill able Time: 08:30:00 AM Linda Lees [facility] 2 09:30:22 Screenin g for malignan t neoplasm of rectum Completed 201505/17/2022 Encounter for screening for malignant neoplasm of rectum;Re corded Elsewhere : No Locati on: [facility] So urce: EHR Chron ic: N Practic e ID: 0001 Bill able Time: 08:30:00 AM Linda Lees [facility] 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 2 09:30:22 Amenorrh ea [id number] Completed 201105/17/2022 Absence of menstruat ion;Recor ded Elsewhere : No Locati on: [facility] So urce: EHR Chron ic: N Practic e ID: 0001 Bill able Time: 09:30:00 AM Linda Lees [facility] 2 09:30:22 Screenin g for malignan t neoplasm of cervix Completed 201005/17/2022 Screening for malignant neoplasms of the cervix;Re corded Elsewhere : No Locati on: [facility] So urce: EHR Chron ic: N Practic e ID: 0001 Bill able Time: 10:30:00 AM Linda davenport [facility] 2 09:30:22 Malaise and fatigue [id number] Completed 201405/17/2022 Fatigue;R ecorded Elsewhere : No Locati on: [facility] So urce: EHR Chron ic: N Practic e ID: 0001 Bill able Time: 09:00:00 AM Linda davenport [facility] 2 09:30:22 Speciali zed medical examinat ion Completed 201405/17/2022 Gynecolog ical Examinati on;Record ed Elsewhere : No Locati on: [facility] So urce: EHR Chron ic: N Practic e ID: 0001 Bill able Time: 09:00:00 AM Linda davenport [facility] 2 09:30:22 Adult health examinat ion Completed 201405/17/2022 Routine general medical examinati on at a health care facility; Practice ID: [id number] Linda davenport [facility] 2 09:30:22 Finding of upper limb [id number] Completed 201505/17/2022 Localized swelling, mass and lump, upper limb, bilateral ;Practice ID: [id number] Linda davenport [facility] 2 09:30:22 Obesity [id number] Completed 201405/17/2022 Obesity;R ecorded Elsewhere : No Locati on: [facility] So urce: EHR Chron ic: N Practic e ID: 0001 Bill able Time: 09:00:00 AM Linda davenport [facility] 2 09:30:22 Finding by site Completed 201605/17/2022 Dermatiti s, unspecifi ed;Record ed Elsewhere : No Locati on: [facility] So urce: EHR Chron ic: N Practic e ID: 0001 Bill able Time: 08:15:00 AM Linda Lees [facility] 2 09:30:22 Micturit ion finding Completed 201605/17/2022 Urinary incontine nce;Recor ded Elsewhere : No Locati on: [facility] So urce: EHR Chron ic: N Practic e ID: 0001 Bill able Time: 08:15:00 AM Linda Lees [facility] 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 2 09:30:22 Problem Notes None recorded. Procedures Surgical History Date Name Laterality Status Provider Name and Address Organization Details Recorded Time 01/28/20 Date of Last Mammogram completed [facility] 05/17/2022 09:43:42 04/23/20 Date of Last Pap Smear completed [facility] 05/17/2022 09:42:13 09/26/19 07 chest wall excision completed [facility] 04/23/2020 10:20:15 Caesarean Section completed [facility] 05/17/2022 09:45:46 procedure on elbow completed [facility] 04/23/2020 10:19:55 refashioning of ingrowing toenail completed [facility] 04/23/2020 10:20:28 procedure on knee completed [facility] 04/23/2020 10:20:35 Imaging Results None recorded. Procedure Notes None recorded. Medical Equipment None Reported. Allergies Allergen ID Allergen Name Allergen Category Reaction Reaction Severity Criticality Documentation Date Start Date Code Code System Note Provider Name and Address Organization Details Recorded Time 1495 amoxicill in medicatio n Not available Not available Not available 04/23/2020 723 RxNorm Lola [place] - [facility] 0 10:17:59 Medications Name Sig Start Date Stop Date Status Note LastModified by Organization Details LastModified Time fluticaso ne propionat e 0.05 % topical cream 05/17 completed Not Available Not Available Not Available meloxicam 15 mg tablet TAKE 1 TABLET BY MOUTH ONCE DAILY 05/17 completed Not Available Not Available Not Available neomycin- polymyxin -dexameth 3.5 mg/mL-10, 000 unit/mL-0 .1% eye drops INSTILL 1 DROP 4 TIMES DAILY INTO EACH EYE FOR 7 DAYS FOR INFECTIO N 05/17 completed Not Available Not Available Not Available triamcino lone acetonide 0.025 % topical ointment apply by topical route 2 times every day a thin layer to the affected area(s) 04/03 completed Prescrib ed Elsewher e: No Locat ion: [facility] M odify By: gail henriquez DateTime : 04/11/20 17 08:15:00 AM Not Available Not Available Not Available mupirocin 2 % topical ointment 05/17 completed Not Available Not Available Not Available albuterol sulfate HFA 90 mcg/actua tion aerosol inhaler INHALE 2 PUFFS BY MOUTH 4 TIMES DAILY NEEDED 05/17 completed Not Available Not Available Not Available Vitamin D2 1,250 mcg (50,000 unit) capsule Take by oral route. active Not Available Not Available No t Available neomycin- polymyxin -hydrocor t 3.5 mg-10,000 unit/mL-1 % ear drops,ravi p 05/17 completed Not Available Not Available Not Available Vitamins and Minerals tablet 05/17 completed Prescrib ed Elsewher e: Yes Loca tion: [facility] M odify By: fransisca gaitan DateTime : 08/29/20 12 09:30:00 AM Not Available Not Available Not Available Multivita min 50 Plus tablet Take by oral route. active Not Available Not Available No t Available Vitamin And Mineral 05/17 completed Not Available Not Available Not Available collagen (bovine) 04/23 completed Not Available Not Available Not Available collagen, hydrolysa te (bovine) (bulk) 100 % powder 2018 active Prescrib oliva cantu: Yes Loca tion: [facility] M odify By: gail dunbarunter DateTime : 04/03/20 08:30:00 AM Not Available Not Available Not Available Emverm 100 mg chewable tablet 05/17 completed Not Available Not Available Not Available turmeric 100 mg-saman 150 mg-olive 50 mg-oreg 150 mg-capryl capsule Take by oral route. active Not Available Not Available No t Available Vitals Date Recorded Body height Body mass index (BMI) Body weight Systolic blood pressure Diastolic blood pressure Provider Name and Address Organization Details Last Updated DateTime 04/23/2020 2057.4 cm 0.2 kg/m2 53101.59 g 121 mm[Hg] 73 mm[Hg] Lola [facility] 0 11:07:37 Date Recorded Body height Body mass index (BMI) Body weight Systolic blood pressure Diastolic blood pressure Provider Name and Address Organization Details Last Updated DateTime 04/29/2021 168.91 cm 25.3 kg/m2 72843.19 g 112 mm[Hg] 67 mm[Hg] [facility] 1 09:51:58 Date Recorded Body height Body mass index (BMI) Body weight Systolic blood pressure Diastolic blood pressure Provider Name and Address Organization Details Last Updated DateTime 05/08/2020 170.18 cm 24.6 kg/m2 13474 g 109 mm[Hg] 68 mm[Hg] Lola Proctor [facility] 0 11:55:21 Date Recorded Body height Body mass index (BMI) Body weight Systolic blood pressure Diastolic blood pressure Provider Name and Address Organization Details Last Updated DateTime 05/17/2022 168.28 cm 25 kg/m2 82449.41 g 126 mm[Hg] 72 mm[Hg] [facility] 09:45:17 Social History Question Answer Notes LastModified by Organizat ion Details LastModified Time Tobacco Smoking Status Never Smoker Linda Lees ethel [facility] 05/17/2022 09:45:42 Do You Have An Advance Directive? No Information n ot available 05/17/2022 How Many Years Have You Consumed Alcohol? 5 Information not available 05/17/2022 Are You Blind Or Do You Have Difficulty Seeing? No Information n ot available 04/29/2021 What Is Your Level Of Caffeine Consumption? Moderate Information not available 05/17/2022 In The 14 Days Before Symptom Onset, Have You Had Close Contact With A Laboratory-confirm ed COVID-19 While That Case Was Ill? No Information n ot available 05/17/2022 In The 14 Days Before Symptom Onset, Have You Had Close Contact With A Person Who Is Under Investigation For COVID-19 While That Person Was Ill? No Information not available 05/17/2022 Have You Been To An Area Known To Be High Risk For COVID-19? No Information not available 05/17/2022 Are You Deaf Or Do You Have Serious Difficulty Hearing? No Information not available 04/29/2021 What Type Of Diet Are You Following? REGULAR Information n ot available 04/29/2021 What Is The Highest Grade Or Level Of School You Have Completed Or The Highest Degree You Have Received? [id number] Information not available 05/17/2022 Do You Use Protection During Sex? Always Information not available 05/17/2022 Do You Use Your Seat Belt Or Car Seat Routinely? Yes Information not available 04/29/2021 Do You Have Smoke And Carbon Monoxide Detectors In Your Home? Yes Information not available 04/29/2021 How Much Tobacco Do You Smoke? No Information not available 05/17/2022 Do You Use Sunscreen Routinely? Yes Information not available 04/29/2021 Have You Used IV Drugs? No Information not available 05/17/2022 Do You Have Difficulty Walking Or Climbing Stairs? No Information not available 05/17/2022 Sex: Unknown Functional Status Question Answer Note LastModified by Organizat ion Details LastModified Time Do you use any illicit or recreational drugs? No Information not available 04/29/2021 What is your level of alcohol consumption? Occasional Information not available 04/29/2021 Are you able to walk? YESWOREST Information not available 04/29/2021 Are you able to care for yourself? Yes Information n ot available 05/17/2022 What is your occupation? retired Information not available 05/17/2022 Do you have difficulty dressing or bathing? No Information not available 05/17/2022 What is your exercise level? Moderate Information not available 05/17/2022 Mental Status Question Answer Note LastModified by Organization D etails LastModified Time Do you feel stressed (tense, restless, nervous, or anxious, or unable to sleep at night)? [id number] Information not available 05/17/2022 Family History Relationship Description Onset Age of this Age Resolved Age Notes LastModified by Organization Details LastModified Time Mother Disorder of thyroid gland [email or web address] Not available 2019 10:18:44 Mother Acute stroke Not avai lable 05/17/2022 09:29:12 Sister Disorder of thyroid gland [email or web address] Not available 2019 10:18:44 Father Acute stroke [email or web address] Not avai lable 05/17/2022 09:29:12 Father Malignant neoplasm of skin [email or web address] Not available 2021 09:29:12 Brother Heart irregularly irregular [email or web address] Not available 2021 09:29:12 Medical History Condition Response Other N Blood Transfusion N Dermatologic Disorders N Gestational Diabetes N Anxiety Disorder N Autoimmune disease N Arthritis N Polyps N Infertility N Acid Reflux (GERD) N Cancer N Varicosities N Stroke N Neurologic/Epilepsy N Fibromyalgia N Headaches N Kidney Disease N Heart Problems Y Kidney or Bladder Problems N Eating Disorder N Art (IVF or FET) N Hepatitis/Liver Disease N Urinary Tract Infection N Asthma N Trauma/Violence N Thrombophilias N Allergies (Food, seasonal, environmental ) Y Breast Cancer N Drug/Latex Allergies/Reactions Y Lung Disease N Defects or Inherited Disease N Breast Problem N Hematologic disorders N Anesthesia Complications Y History of STI N Deep Vein Thrombosis N Polycystic ovary syndrome N History of abnormal pap N Endometriosis N High Cholesterol N Thyroid Problems N GI Problems N Anemia N Psychiatric Illness N Ovarian Cancer N Diabetes N Pulmonary (TB, Asthma) N Eczema N Abuse/Domestic Violence N Depression/ depression N Heart Disease N Pre-Eclampsia N Hypertension N Osteoporosis N Gynecological History Statement/Question Response Abnormal Pap N Date of Last Mammogram 01/27/2022 On BCP's at Conception? N N STIs/STDs N HPV Vaccine N 16 Current Control Method Menopause Age at First Child 18 If Post Menopausal, Age at Menopause 48 Sexually Active? Y Date of DEXA bone scan 02/04/2022 Date of Last Pap Smear 04/23/2020 Sexual Problems? Y LMP Unknown N Obstetrics History GPAL:G 1 P 0 0 0 1 Type Value Living 1 Total 1 Past Encounters Encounter ID Performer Location Encounter Start Date Encounter Closed Date Diagnosis/Indication Diagnosis SNOMED-CT Code Diagnosis ICD10 Code Diagnosis [id number] [address] [address] 04/23/2020 10:59:04 04/23/2020 12:52:57 Gynecologic examination [id number] Z01.419 Take Calcium with Vitamin D 12-1500mg daily. Do monthly self breast exams. It is advised to get annual flu shot in the fall and she could obtain at [facility] or [facility] care clinic. If you haven't received the Tdap vaccine in the last 10 years you should obtain one as well. Have mammogram yearly, bone density every 2-3 years and colonoscop y every 5-10 years depending on findings and history. Engage in daily exercise of low impact aerobic exercise 45-60 minutes 4-5 times weekly. Avoid tobacco and illicit drugs as well as using moderation with alcohol intake less than 1-2 8 oz beverages daily. This lifestyle behavior pattern will lead to less health conditions and longer life span. If BMI greater than 25 weight watchers or dietary consult advised. Questions have been answered. Patient appears to understand instructio ns, but if you have any further questions call or respond to this email Adult heal th examination [id number] Z00.00 Family Hx thyroid issues. Thinning hair. [facility] Fasting [id number] [facility] [address],[facility] [place] [address] 05/08/2020 11:48:37 05/11/2020 15:07:52 Hypothyroidism [id number] E03.9 We agreed to complete full thyroid panel & r/p TSH levels. Will refer to Endocrinol ogist once these test results are received if still abn. Family Hx of thyroid issues. She voices that she does not have a lot of sx's of this condition. Ordered printed for [facility]. Will complete roland. Time spent in visit is a total of 15 mins with at least 50% of visit consisting of counseling and review of plan of care. [id number] [facility] [address],[place] [address] 04/29/2021 09:32:47 04/29/2021 10:34:23 Gynecologic examination [id number] Z01.419 Take Calcium with Vitamin D 12-1500mg daily. Do monthly self breast exams. It is advised to get annual flu shot in the fall and she could obtain at [facility] or [facility] care clinic. If you haven't received the Tdap vaccine in the last 10 years you should obtain one as well. Have mammogram yearly, bone density every 2-3 years and colonoscop y every 5-10 years depending on findings and history. Engage in daily exercise of low impact aerobic exercise 45-60 minutes 4-5 times weekly. Avoid tobacco and illicit drugs as well as using moderation with alcohol intake less than 1-2 8 oz beverages daily. This lifestyle behavior pattern will lead to less health conditions and longer life span. If BMI greater than 25 weight watchers or dietary consult advised. Questions have been answered. Patient appears to understand instructio ns, but if you have any further questions call or respond to this email Pap/hpv hx wnlPap/hpv 2020 wnlOption Pap q3-5yrs per asccp unless otherwise indicated. STD declinedMa mmo orderedDex a ordered (Hx of osteopenia )No issues or concerns Note: Son goes to [facility] for engineerin g Adult heal th examination [id number] Z00.00 Updated routine labs requested. [id number] Sade Bonilla [facility] [address] [address] 05/17/2022 09:28:58 05/17/2022 10:06:43 Gynecologic examination [id number] Z01.419 Take Calcium with Vitamin D 12-1500mg daily. Do monthly self breast exams. It is advised to get annual flu shot in the fall and she could obtain at [facility] or [facility] clinic. If you haven't received the Tdap vaccine in the last 10 years you should obtain one as well. Have mammogram yearly, bone density every 2-3 years and colonoscop y every 5-10 years depending on findings and history. Engage in daily exercise of low impact aerobic exercise 45-60 minutes 4-5 times weekly. Avoid tobacco and illicit drugs as well as using moderation with alcohol intake less than 1-2 8 oz beverages daily. This lifestyle behavior pattern will lead to less health conditions and longer life span. If BMI greater than 25 weight watchers or dietary consult advised. Questions have been answered. Patient appears to understand instructio ns, but if you have any further questions call or respond to this email Pap/hpv sent STD Screen declined Genetic Screen discussed Colon Screen UTD PCP Dexa Screen UTD PCP Routine Labs UTD PCPMammo WNL PCP Health Concerns Section Related Observation LastModified by Organization Detai ls LastModified Time None Recorded Concern Status LastModified by Organization Details LastModified Time None Recorded Advance Directives Directive N: Payers Encounter Date Sequence Insurance Name Policy Number Policy Munoz Covered Member ID Munoz Member ID Guarantor Name 04/23/2020 1 [employer] [id number] Claude Denise [id number] Claude Denise 05/08/2020 1 [employer] [id number] Claude Denise [id number] Claude Denise 04/29/2021 1 [employer] [id number] Claude Denise [id number] Claude Denise 05/17/2022 1 [employer] [id number] Claude Denise [id number] Claude Denise Notes Date Note Type Note Provider Name and Address Organization Details Recorded Time 04/23/2020 text/html Annual GYNReport ed bypatient.History:n o gynecologic complaints Menstrual cycle:Normal menses Urinary symptoms:No hematuria; No incontinence Vulva:No genital lesion Vagina:Normal vaginal discharge Breast:No breast pain; No breast lump; No nipple discharge Current Contraception:Satis fied with current contraception; Monogamous relationship; postmenopause Sexual complaints:No sexual complaints; No pain during intercourse; Normal libido Menopausal Symptoms:No menopausal symptoms; Normal vaginal lubrication Psychological symptoms:No depression; No anxiety; No PMDD Preventive measures:Encourage self breast examination; Encourage regular exercise; Encourage no tobacco use; Encourage regular mammograms starting age 40; Followed with Q3 year pap smear and high risk HPV typing; Needs to schedule mammogram; Up to date on colonoscopy screening Sade Bonilla [facility] [address], [place], [address], [facility] 04/23/2020 12:33:38 05/08/2020 text/html Patient is here to f/u recent abn TSH levels. MICHOACANO Matos [address], [place], [address], [facility] 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.Menopausa l Symptoms:no menopausal symptoms; normal vaginal lubrication Vaginal Bleeding:history of menopause having occurred; no history of post menopausal bleeding Urinary Symptoms:no hematuria; no incontinence; no nocturia; no urinary frequency Vulva:no genital lesion; no vulvar atrophy Vagina:normal vaginal discharge; no vaginal atrophy Breast:no breast lump; no nipple discharge; no breast pain Sexual Complaints:no sexual complaints Psychological Symptoms:no depression; no anxiety Preventive Measures:encourage regular mammograms starting age 40; encourage self breast examination; encourage regular exercise; encourage no tobacco use; needs to schedule mammogram; history of recent colonoscopy; needs to schedule bone density Sade Bonilla ANA MARIA [address], [place], [address], [facility] 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.Menopausa l Symptoms:no menopausal symptoms; normal vaginal lubrication Vaginal Bleeding:history of menopause having occurred; no history of post menopausal bleeding Urinary Symptoms:no hematuria; no incontinence; no nocturia; no urinary frequency Vulva:no genital lesion; no vulvar atrophy Vagina:normal vaginal discharge; no vaginal atrophy Breast:no breast lump; no nipple discharge; no breast pain Sexual Complaints:no sexual complaints Psychological Symptoms:no depression; no anxiety Preventive Measures:encourage regular mammograms starting age 40; encourage self breast examination; encourage regular exercise; encourage no tobacco use; mammogram performed within the past year; history of recent colonoscopy Sade Bonilla, [facility] [address], [place], [address], [facility] 05/17/2022 10:01:47 OBGyn Episode Ob Episode Information Episode Created Date Number of Fetuses Patient Bloodtype Patient rh Status Prepregnancy Weight lbs Domestic Partner Domestic Partner Phone Father Name Lead Systems Developer Status 04/23/20 20 1 CLOSED Fetus Data First Name Last Name Admitted to NICU Weight (g) Sex Living Outcome Pediatric Complications Fetus ID Race Codes Race Delivery Type [id number] Primary Warren Calculation Initial Warren Date Initial Exam Date Initial Exam Provider Initial Ultrasound Date Last Menstrual Period Date Ultra Sound Weeks Gestation 0 Eighteen To Twenty Week Warren Update Ultra Sound Date Fundal Height At Umbil Quickening Date Ultra Sound Latest Weeks Gestation Final Warren Confirmed By Final Warren Confirmed Date Final Warren Date Ultra Sound Latest Days Gestation 0 0 Menstrual History Last Menstrual Date Menses Monthly On Bcp Conception Prior Menses Frequency Hcg Plus Date Menarche Onset Age Delivery Information Delivery Date Delivery Type Labor Anesthesia Weeks Gestation Incision Type Labor Labor Length Hrs Delivered By Post Complications Tubal Sterilization Discharge Date Comments 2 Discharge Information Feeding Method Contraceptive Method Maternal HG B and HCT Levels
--- OUTSIDE RECORDS SUMMARY | 2025-02-26 11:12 | XMS_ITS | Data Portability ---
Author Organization [place] [facility], Main Office Address [address] [place] [address] Care Team Providers Care Research Geneticist Name Role Phone SHI SILVA Primary Care Provider ADRIANAA Referring Provider [phone] Assessment No assessment recorded. Plan of Treatment Reminders Order Date Submit Date Provider Last Modified By Organization Details Last Modified Time Details Appointments None recorded. Lab None recorded. Referral None recorded. Procedures None recorded. Surgeries None recorded. Imaging None recorded. Medication Orders Tirosint 25 mcg capsule [address] [facility], [address] [place], [address], 11:09:14 Patient TargetsNo targets recorded. Patient InstructionsNo instructions recorded. Reason for Referral None Reported. Results Created Date Observation Date Name Description Value Unit Range Abnormal Flag Note LastModifiedBy Organization Detail LastModifiedTime 02/21/20 22 02/26/2022 TSH+F REE T4 TSH 4.05 mIU/L 0.40-4 .50 normal Not Available [facility] [address], [address], 02/26/2022 19:56:15 02/21/20 22 02/26/2022 TSH+F REE T4 T4, free 1.0 NG/dL 0.8-1. 8 normal Not Available [facility] [address], [address], 02/26/2022 19:56:15 02/21/20 22 02/26/2022 T3, FREE T3, free 2.9 pg/mL 2.3-4. 2 normal Not Available [facility] [address], [address], 02/26/2022 19:56:14 02/21/20 22 02/26/2022 VITAM IN B12/F OLATE , SERUM PANEL vitamin B12 819 pg/mL 200-11 00 normal Not Available [address], [address], 02/26/2022 19:56:14 02/21/20 22 02/26/2022 VITAM IN B12/F OLATE , SERUM PANEL folate, serum >24.0 NG/mL normal Refer ence Range Low: <3.4 Borde rline : 3.4-5 .4 Shadia l: >5.4 Not Available [address], [address], 02/26/2022 19:56:14 02/21/20 22 02/26/2022 THYRO ID PEROX IDASE ANTIB ODIES thyroid peroxidase antibodies 3 IU/mL <9 normal Not Available [address], [address], 02/26/2022 19:56:13 02/21/20 22 02/26/2022 CBC (H/H, RBC, INDIC ES, WBC, PLT) white blood cell count 5.8 thous and/u L 3.8-10 .8 normal Not Available [address], [address], 02/26/2022 19:56:12 02/21/20 22 02/26/2022 CBC (H/H, RBC, INDIC ES, WBC, PLT) red blood cell count 4.09 tyson on/uL 3.80-5 .10 normal Not Available [address], [address], 02/26/2022 19:56:12 02/21/20 22 02/26/2022 CBC (H/H, RBC, INDIC ES, WBC, PLT) hemoglobin 12.5 g/dL 11.7-1 5.5 normal Not Available [address], [address], 02/26/2022 19:56:12 02/21/20 22 02/26/2022 CBC (H/H, RBC, INDIC ES, WBC, PLT) hematocrit 38.7 % 35.0-4 5.0 normal Not Available [address], [address], 02/26/2022 19:56:12 02/21/20 22 02/26/2022 CBC (H/H, RBC, INDIC ES, WBC, PLT) MCV 94.6 fL 80.0-1 00.0 normal Not Available [address], [address], 02/26/2022 19:56:12 02/21/20 22 02/26/2022 CBC (H/H, RBC, INDIC ES, WBC, PLT) MCH 30.6 pg 27.0-3 3.0 normal Not Available [address], [address], 02/26/2022 19:56:12 02/21/20 22 02/26/2022 CBC (H/H, RBC, INDIC ES, WBC, PLT) MCHC 32.3 g/dL 32.0-3 6.0 normal Not Available [address], [address], 02/26/2022 19:56:12 02/21/20 22 02/26/2022 CBC (H/H, RBC, INDIC ES, WBC, PLT) RDW 12.3 % 11.0-1 5.0 normal Not Available [address], [address], 02/26/2022 19:56:12 02/21/20 22 02/26/2022 CBC (H/H, RBC, INDIC ES, WBC, PLT) platelet count 288 thous and/u L 140-40 0 normal Not Available [facility] [address] [place], [address], 02/26/2022 19:56:12 02/21/20 22 02/26/2022 CBC (H/H, RBC, INDIC ES, WBC, PLT) MPV 11.2 fL 7.5-12 .5 normal Not Available [facility] [address] [place], [address], 02/26/2022 19:56:12 02/21/20 22 02/26/2022 TSI (THYR OID STIMU LATIN G IMMUN OGLOB ULIN) tsi <89 %_bas roque <140 Thyro id stimu latin g immun oglob ulins (TSI) can engag e the TSH electrician radio tors resul ting in hyper thyro idism in Grave s' disea se patie nts. TSI level s can be usefu l in monit oring the clini jose e outco me of Grave s' disea se as well as asses sing the poten tial for hyper thyro idism from mater nal-f etal trans jose. TSI resul ts great er than or equal to (>=) 140% of the Refer ence Contr ol are consi dered posit cherie. NOTE: A serum TSH level great er than 350 micro -Inte rnati onal Units /mL can inter fere with the TSI bioas say and poten tiall y give false posit cherie resul ts. Patie nts who are pregn ant and are suspe cted of havin g hyper thyro idism shoul d have both TSI and human Chori onic Gonad otrop in (hCG) tests measu red. A serum hCG level great er than 40,62 5 mIU/m L can inter fere with the TSI bioas say and may give false negat cherie resul ts. In these patie nts it is recom rosanna d that a secon d TSI be obtai angel when the hCG yecenia ntrat ion falls below 40,62 5 mIU/m L (usua lly after appro ximat prasanth 20-we eks gesta tion) . The elmer tical perfo rmanc e suzanne cteri stics of this assay have been deter mined by [facility] jimbo Colby . The modif icati ons have not been clear ed or appro cherrie by the FDA. This assay has been valid ated pursu ant to the CLIA regul ation s and is used for clini jose e purpo ses. Not Available [facility] [address] [address] [place], [address], 02/26/2022 19:56:12 02/21/20 22 02/26/2022 COMPR EHENS CHERIE METAB OLIC PANEL glucose 85 mg/dL 65-99 normal Fasti ng refer ence inter kell Not Available [facility] [address] [address] [place], [address], 02/26/2022 19:56:11 02/21/20 22 02/26/2022 COMPR EHENS CHERIE METAB OLIC PANEL urea nitrogen (BUN) 15 mg/dL 7-25 normal Not Available [facility] [address] [address] [place], [address], 02/26/2022 19:56:11 02/21/2002/26/2022 COMPR EHENS CHERIE METAB OLIC PANEL creatinine 0.69 mg/dL 0.50-1 .05 normal For patie nts >49 years of age, the refer ence limit for Creat inine is appro ximat prasanth 13% highe r for peopl e ident ified as Afric an-Am ramon n. Not Available [facility] [address] [address] [address], [place], [address], 02/26/2022 19:56:11 02/21/2002/26/2022 COMPR EHENS CHERIE METAB OLIC PANEL eGFR non-afr. macanese 96 mL/mi n/1.7 3m2 > or = 60 normal Not Available [facility] [address] [address] [place], [address], 02/26/2022 19:56:11 02/21/20 22 02/26/2022 COMPR EHENS CHERIE METAB OLIC PANEL eGFR 111 mL/mi n/1.7 3m2 > or = 60 normal Not Available [address], [address], 02/26/2022 19:56:11 02/21/20 22 02/26/2022 COMPR EHENS CHERIE METAB OLIC PANEL BUN/creatini ne ratio not applic able (calc ) 6-22 Not Available [address], [address], 02/26/2022 19:56:11 02/21/20 22 02/26/2022 COMPR EHENS CHERIE METAB OLIC PANEL sodium 140 mmol/ L 135-14 6 normal Not Available [address], [address], 02/26/2022 19:56:11 02/21/20 22 02/26/2022 COMPR EHENS CHERIE METAB OLIC PANEL potassium 4.2 mmol/ L 3.5-5. 3 normal Not Available [address], [address], 02/26/2022 19:56:11 02/21/20 22 02/26/2022 COMPR EHENS CHERIE METAB OLIC PANEL chloride 104 mmol/ L 98-110 normal Not Available [address], [address], 02/26/2022 19:56:11 02/21/20 22 02/26/2022 COMPR EHENS CHERIE METAB OLIC PANEL carbon dioxide 29 mmol/ L 20-32 normal Not Available [address], [address], 02/26/2022 19:56:11 02/21/20 22 02/26/2022 COMPR EHENS CHERIE METAB OLIC PANEL calcium 9.7 mg/dL 8.6-10 .4 normal Not Available [address], [address], 02/26/2022 19:56:11 02/21/20 22 02/26/2022 COMPR EHENS CHERIE METAB OLIC PANEL protein, total 7.6 g/dL 6.1-8. 1 normal Not Available [address], [address], 02/26/2022 19:56:11 02/21/20 22 02/26/2022 COMPR EHENS CHERIE METAB OLIC PANEL albumin 4.7 g/dL 3.6-5. 1 normal Not Available [address], [address], 02/26/2022 19:56:11 02/21/20 22 02/26/2022 COMPR EHENS CHERIE METAB OLIC PANEL globulin 2.9 g/dL_ (calc ) 1.9-3. 7 normal Not Available [address], [address], 02/26/2022 19:56:11 02/21/20 22 02/26/2022 COMPR EHENS CHERIE METAB OLIC PANEL albumin/glob ulin ratio 1.6 (calc ) 1.0-2. 5 normal Not Available [address], [address], 02/26/2022 19:56:11 02/21/20 22 02/26/2022 COMPR EHENS CHERIE METAB OLIC PANEL bilirubin, total 0.5 mg/dL 0.2-1. 2 normal Not Available [address], [address], 02/26/2022 19:56:11 02/21/20 22 02/26/2022 COMPR EHENS CHERIE METAB OLIC PANEL alkaline phosphatase 78 U/L 37-153 normal Not Available [address], [address], 02/26/2022 19:56:11 02/21/20 22 02/26/2022 COMPR EHENS CHERIE METAB OLIC PANEL AST 22 U/L 10-35 normal Not Available [address], [address], 02/26/2022 19:56:11 02/21/20 22 02/26/2022 COMPR EHENS CHERIE METAB OLIC PANEL ALT 19 U/L 6-29 normal Not Available [address], [address], 02/26/2022 19:56:11 02/21/20 22 02/26/2022 LIPID PANEL , STAND EDUARDO cholesterol, total 207 mg/dL <200 high Not Available [address], [address], 02/26/2022 19:56:10 02/21/20 22 02/26/2022 LIPID PANEL , STAND EDUARDO HDL cholesterol 81 mg/dL > or = 50 normal Not Available [address], [address], 02/26/2022 19:56:10 02/21/20 22 02/26/2022 LIPID PANEL , STAND EDUARDO triglyceride s 52 mg/dL <150 normal Not Available [address], [address], 02/26/2022 19:56:10 02/21/20 22 02/26/2022 LIPID PANEL , STAND EDUARDO LDL-choleste rol 113 mg/dL _(jose e c) high Refer ence range : <100 Claudette able range <100 mg/dL for prima ry preve ntion ; <70 mg/dL for patie nts with CHD or diabe tic patie nts with > or = 2 CHD risk facto rs. LDL-C is now calcu lated using the Monserrat n-Hop kins calcu marilyn n, which is a valid ated novel metho d leandroi ramez donald r accur acy than the Fried abiel equat ion in the estim ation of LDL-C . Monserrat n SS et al. SARIKA. 2013; 310(5 7): 2061- 2068 (http ://ed ucati on.[employer]. [employer]/f aq/FA Q164) Not Available [address], [address], 02/26/2022 19:56:10 02/21/20 22 02/26/2022 LIPID PANEL , STAND EDUARDO chol/HDLC ratio 2.6 (calc ) <5.0 normal Not Available [address], [address], 02/26/2022 19:56:10 02/21/20 22 02/26/2022 LIPID PANEL , STAND EDUARDO non HDL cholesterol 126 mg/dL _(jose e c) <130 normal For patie nts with diabe tenzin plus 1 major ASCVD risk facto r, treat ing to a non-H DL-C goal of <100 mg/dL (LDL- C of <70 mg/dL ) is consi dered a thera pekwame c optio n. Not Available [address], [address], 02/26/2022 19:56:10 07/09/20 22 07/13/2022 TSH+F REE T4 TSH 4.49 mIU/L 0.40-4 .50 normal Not Available [address], [address], 07/13/2022 18:59:26 07/09/20 22 07/13/2022 TSH+F REE T4 T4, free 1.0 NG/dL 0.8-1. 8 normal Not Available [address], [address], 07/13/2022 18:59:26 07/09/20 22 07/13/2022 T3, FREE T3, free 3.4 pg/mL 2.3-4. 2 normal Not Available [facility] [address] [address] [address], [place], [address], 07/13/2022 18:59:25 07/09/2007/13/2022 THYRO ID PEROX IDASE ANTIB ODIES thyroid peroxidase antibodies 9 IU/mL <9 high Not Available [address], [address], 07/13/2022 18:59:24 07/09/2007/13/2022 COMPR EHENS CHERIE METAB OLIC PANEL glucose 83 mg/dL 65-99 normal Fasti ng refer ence inter kell Not Available [address], [address], 07/13/2022 18:59:23 07/09/2007/13/2022 COMPR EHENS CHERIE METAB OLIC PANEL urea nitrogen (BUN) 11 mg/dL 7-25 normal Not Available [address], [address], 07/13/2022 18:59:23 07/09/20 22 07/13/2022 COMPR EHENS CHREIE METAB OLIC PANEL creatinine 0.72 mg/dL 0.50-1 .03 normal Not Available [address], [address], 07/13/2022 18:59:23 07/09/2007/13/2022 COMPR EHENS CHERIE METAB OLIC PANEL eGFR 97 mL/mi n/1.7 3m2 > or = 60 normal The eGFR is based on the CKD-E PI 2020 equat ion. To calcu late the new eGFR from a previ ous Creat inine or Cysta adina rai t, go to https ://yusuf molina.srinath jameson/ling donaldson s/ kdoqi /gfr% 5Fcal culat or Not Available [address], [address], 07/13/2022 18:59:23 07/09/20 22 07/13/2022 COMPR EHENS CHERIE METAB OLIC PANEL BUN/creatini ne ratio not applic able (calc ) 6-22 Not Available [address], [address], 07/13/2022 18:59:23 07/09/20 22 07/13/2022 COMPR EHENS CHERIE METAB OLIC PANEL sodium 139 mmol/ L 135-14 6 normal Not Available [address], [address], 07/13/2022 18:59:23 07/09/2007/13/2022 COMPR EHENS CHERIE METAB OLIC PANEL potassium 4.2 mmol/ L 3.5-5. 3 normal Not Available [address], [address], 07/13/2022 18:59:23 07/09/20 22 07/13/2022 COMPR EHENS CHERIE METAB OLIC PANEL chloride 103 mmol/ L 98-110 normal Not Available [address], [address], 07/13/2022 18:59:23 07/09/20 22 07/13/2022 COMPR EHENS CHERIE METAB OLIC PANEL carbon dioxide 29 mmol/ L 20-32 normal Not Available [address], [address], 07/13/2022 18:59:23 07/09/20 22 07/13/2022 COMPR EHENS CHERIE METAB OLIC PANEL calcium 9.7 mg/dL 8.6-10 .4 normal Not Available [address], [address], 07/13/2022 18:59:23 07/09/20 22 07/13/2022 COMPR EHENS CHERIE METAB OLIC PANEL protein, total 7.2 g/dL 6.1-8. 1 normal Not Available [address], [place], [address], 07/13/2022 18:59:23 07/09/2007/13/2022 COMPR EHENS CHERIE METAB OLIC PANEL albumin 4.7 g/dL 3.6-5. 1 normal Not Available [address], [address], 07/13/2022 18:59:23 07/09/2007/13/2022 COMPR EHENS CHERIE METAB OLIC PANEL globulin 2.5 g/dL_ (calc ) 1.9-3. 7 normal Not Available [address], [address], 07/13/2022 18:59:23 07/09/2007/13/2022 COMPR EHENS CHERIE METAB OLIC PANEL albumin/glob ulin ratio 1.9 (calc ) 1.0-2. 5 normal Not Available [address], [address], 07/13/2022 18:59:23 07/09/2007/13/2022 COMPR EHENS CHERIE METAB OLIC PANEL bilirubin, total 0.7 mg/dL 0.2-1. 2 normal Not Available [address], [address], 07/13/2022 18:59:23 07/09/2007/13/2022 COMPR EHENS CHERIE METAB OLIC PANEL alkaline phosphatase 77 U/L 37-153 normal Not Available [address] [address] [place], [address], 07/13/2022 18:59:23 07/09/20 22 07/13/2022 COMPR EHENS CHERIE METAB OLIC PANEL AST 21 U/L 10-35 normal Not Available [address], [address], 07/13/2022 18:59:23 10/14/20 22 07/13/2022 COMPR EHENS CHERIE METAB OLIC PANEL ALT 19 U/L 6-29 normal Not Available [address], [address], 07/13/2022 18:59:23 07/09/20 22 07/13/2022 LIPID PANEL , STAND EDUARDO cholesterol, total 190 mg/dL <200 normal Not Available [address], [address], 07/13/2022 18:59:20 07/09/2007/13/2022 LIPID PANEL , STAND EDUARDO HDL cholesterol 72 mg/dL > or = 50 normal Not Available [address], [address], 07/13/2022 18:59:20 07/09/20 22 07/13/2022 LIPID PANEL , STAND EDUARDO triglyceride s 47 mg/dL <150 normal Not Available [address], [address], 07/13/2022 18:59:20 07/09/2007/13/2022 LIPID PANEL , STAND EDUARDO LDL-choleste rol 104 mg/dL _(jose e c) high Refer ence range : <100 Claudette able range <100 mg/dL for prima ry preve ntion ; <70 mg/dL for patie nts with CHD or diabe tic patie nts with > or = 2 CHD risk facto rs. LDL-C is now calcu lated using the Monserrat n-Hop kins calcu latlatisha n, which is a valid ated novel arminda cavazos than the Fried abiel equat ion in the estim ation of LDL-C . Monserrat dow SS et al. SARIKA. 2013; 310(1 9): 2061- 2068 (http ://ed ucati on.Qu estDi [employer]. com/f aq/FA Q164) Not Available [address], [address], 07/13/2022 18:59:20 07/09/2007/13/2022 LIPID PANEL , STAND EDUARDO chol/HDLC ratio 2.6 (calc ) <5.0 normal Not Available [address], [address], 07/13/2022 18:59:20 07/09/20 22 07/13/2022 LIPID PANEL , STAND EDUARDO non HDL cholesterol 118 mg/dL _(jose e c) <130 normal For patie nts with diabe tenzin plus 1 major ASCVD risk facto r, treat ing to a non-H DL-C goal of <100 mg/dL (LDL- C of <70 mg/dL ) is anthony lee optio n. Not Available [address], [address], 07/13/2022 18:59:20 12/30/19 23 12/31/2022 COMPR EHENS CHERIE METAB OLIC PANEL glucose 85 mg/dL 65-99 normal Fasti ng refer ence inter kell Not Available [address], [address], 12/31/2022 12:46:22 12/30/19 23 12/31/2022 COMPR EHENS CHERIE METAB OLIC PANEL urea nitrogen (BUN) 18 mg/dL 7-25 normal Not Available [address], [address], 12/31/2022 12:46:22 12/30/19 23 12/31/2022 COMPR EHENS CHERIE METAB OLIC PANEL creatinine 0.73 mg/dL 0.50-1 .03 normal Not Available [address], [address], 12/31/2022 12:46:22 12/30/19 23 12/31/2022 COMPR EHENS CHERIE METAB OLIC PANEL eGFR 95 mL/mi n/1.7 3m2 > or = 60 normal The eGFR is based on the CKD-E PI 2020 equat ion. To calcu late the new eGFR from a previ ous Creat inine or Cysta adina rai t, go to https ://yusuf molina.srinath jameson/ling donaldson s/ kdoqi /gfr% 5Fcal culat or Not Available [address] [address] [place], [address], 12/31/2022 12:46:22 12/30/19 23 12/31/2022 COMPR EHENS CHERIE METAB OLIC PANEL BUN/creatini ne ratio NOT APPLIC ABLE (calc ) 6-22 Not Available [address], [address], 12/31/2022 12:46:22 12/30/19 23 12/31/2022 COMPR EHENS CHERIE METAB OLIC PANEL sodium 141 mmol/ L 135-14 6 normal Not Available [address] [address] [place], [address], 12/31/2022 12:46:22 12/30/19 23 12/31/2022 COMPR EHENS CHERIE METAB OLIC PANEL potassium 4.0 mmol/ L 3.5-5. 3 normal Not Available [address] [address] [place], [address], 12/31/2022 12:46:22 12/30/19 23 12/31/2022 COMPR EHENS CHERIE METAB OLIC PANEL chloride 106 mmol/ L 98-110 normal Not Available [employer] [facility] [address] [address] [place], [address], 12/31/2022 12:46:22 12/30/19 23 12/31/2022 COMPR EHENS CHERIE METAB OLIC PANEL carbon dioxide 28 mmol/ L 20-32 normal Not Available [address] [address] [place], [address], 12/31/2022 12:46:22 12/30/19 23 12/31/2022 COMPR EHENS CHERIE METAB OLIC PANEL calcium 9.1 mg/dL 8.6-10 .4 normal Not Available [address], [address], 12/31/2022 12:46:22 12/30/19 23 12/31/2022 COMPR EHENS CHERIE METAB OLIC PANEL protein, total 6.6 g/dL 6.1-8. 1 normal Not Available [address], [address], 12/31/2022 12:46:22 12/30/19 23 12/31/2022 COMPR EHENS CHERIE METAB OLIC PANEL albumin 4.1 g/dL 3.6-5. 1 normal Not Available [address], [address], 12/31/2022 12:46:22 12/30/19 23 12/31/2022 COMPR EHENS CHERIE METAB OLIC PANEL globulin 2.5 g/dL_ (calc ) 1.9-3. 7 normal Not Available [address], [address], 12/31/2022 12:46:22 12/30/19 23 12/31/2022 COMPR EHENS CHERIE METAB OLIC PANEL albumin/glob ulin ratio 1.6 (calc ) 1.0-2. 5 normal Not Available [address], [address], 12/31/2022 12:46:22 12/30/19 23 12/31/2022 COMPR EHENS CHERIE METAB OLIC PANEL bilirubin, total 0.4 mg/dL 0.2-1. 2 normal Not Available [address], [address], 12/31/2022 12:46:22 12/30/19 23 12/31/2022 COMPR EHENS CHERIE METAB OLIC PANEL alkaline phosphatase 64 U/L 37-153 normal Not Available [facility] [email or web address] [address] [address] [place], [address], 12/31/2022 12:46:22 12/30/19 23 12/31/2022 COMPR EHENS CHERIE METAB OLIC PANEL AST 17 U/L 10-35 normal Not Available [facility] [address] [address] [place], [address], 12/31/2022 12:46:22 12/30/19 23 12/31/2022 COMPR EHENS CHERIE METAB OLIC PANEL ALT 15 U/L 6-29 normal Not Available [facility] [address] [address] [place], [address], 12/31/2022 12:46:22 12/30/19 23 12/31/2022 IODIN E, SERUM /PLAS MA iodine, serum/plasma 52 mcg/L 52-109 This test was devel gavin and its elmer tical perfo rmanc e suzanne cteri stics have been deter mined by [facility] jimbo s [place], [place]. It has not been clear ed or appro cherrie by the U.S. Food and Drug Admin istra tion. This assay has been valid ated pursu ant to the CLIA regul ation s and is used for clini jose e purpo ses. Not Available [facility] [employer] [address] [address] [place], [address], 12/31/2022 12:46:24 12/30/19 23 12/31/2022 CBC (H/H, RBC, INDIC ES, WBC, PLT) white blood cell count 5.3 thous and/u L 3.8-10 .8 normal Not Available [facility] [address] [address] [place], [address], 12/31/2022 12:46:24 12/30/19 23 12/31/2022 CBC (H/H, RBC, INDIC ES, WBC, PLT) red blood cell count 3.91 tyson on/uL 3.80-5 .10 normal Not Available [address], [address], 12/31/2022 12:46:24 12/30/19 23 12/31/2022 CBC (H/H, RBC, INDIC ES, WBC, PLT) hemoglobin 12.1 g/dL 11.7-1 5.5 normal Not Available [address], [address], 12/31/2022 12:46:24 12/30/19 23 12/31/2022 CBC (H/H, RBC, INDIC ES, WBC, PLT) hematocrit 36.4 % 35.0-4 5.0 normal Not Available [address], [address], 12/31/2022 12:46:24 12/30/19 23 12/31/2022 CBC (H/H, RBC, INDIC ES, WBC, PLT) MCV 93.1 fL 80.0-1 00.0 normal Not Available [address], [address], 12/31/2022 12:46:24 12/30/19 23 12/31/2022 CBC (H/H, RBC, INDIC ES, WBC, PLT) MCH 30.9 pg 27.0-3 3.0 normal Not Available [address], [address], 12/31/2022 12:46:24 12/30/19 23 12/31/2022 CBC (H/H, RBC, INDIC ES, WBC, PLT) MCHC 33.2 g/dL 32.0-3 6.0 normal Not Available [address], [address], 12/31/2022 12:46:24 12/30/19 23 12/31/2022 CBC (H/H, RBC, INDIC ES, WBC, PLT) RDW 11.9 % 11.0-1 5.0 normal Not Available [address], [address], 12/31/2022 12:46:24 12/30/19 23 12/31/2022 CBC (H/H, RBC, INDIC ES, WBC, PLT) platelet count 236 thous and/u L 140-40 0 normal Not Available [address], [address], 12/31/2022 12:46:24 12/30/19 23 12/31/2022 CBC (H/H, RBC, INDIC ES, WBC, PLT) MPV 12.0 fL 7.5-12 .5 normal Not Available [address], [address], 12/31/2022 12:46:24 12/30/1912/31/2022 THYRO ID PEROX IDASE ANTIB ODIES thyroid peroxidase antibodies 8 IU/mL <9 normal Not Available [address], [address], 12/31/2022 12:46:25 12/30/19 23 12/31/2022 VITAM IN B12/F OLATE , SERUM PANEL vitamin B12 859 pg/mL 200-11 00 normal Not Available [address], [address], 12/31/2022 12:46:26 12/30/1912/31/2022 VITAM IN B12/F OLATE , SERUM PANEL folate, serum >24.0 NG/mL normal Refer ence Range Low: <3.4 Borde rline : 3.4-5 .4 Shadia l: >5.4 Not Available [address], [address], 12/31/2022 12:46:26 12/30/19 23 12/31/2022 T3, FREE T3, free 3.3 pg/mL 2.3-4. 2 normal Not Available [address], [address], 12/31/2022 12:46:27 12/30/1912/31/2022 TSH+F REE T4 TSH 4.33 mIU/L 0.40-4 .50 normal Not Available [address], [address], 12/31/2022 12:46:27 12/30/1912/31/2022 TSH+F REE T4 T4, free 1.0 NG/dL 0.8-1. 8 normal Not Available [address], [address], 12/31/2022 12:46:27 06/28/20 23 07/01/2023 COMPR EHENS CHERIE METAB OLIC PANEL glucose 92 mg/dL 65-99 normal Fasti ng refer ence inter kell Not Available [address], [address], 07/01/2023 09:28:23 06/28/20 23 07/01/2023 COMPR EHENS CHERIE METAB OLIC PANEL urea nitrogen (BUN) 14 mg/dL 7-25 normal Not Available [address], [address], 07/01/2023 09:28:23 06/28/20 23 07/01/2023 COMPR EHENS CHERIE METAB OLIC PANEL creatinine 0.62 mg/dL 0.50-1 .03 normal Not Available [address], [address], 07/01/2023 09:28:23 06/28/20 23 07/01/2023 COMPR EHENS CHERIE METAB OLIC PANEL eGFR 103 mL/mi n/1.7 3m2 > or = 60 normal Not Available [address], [address], 07/01/2023 09:28:23 06/28/2007/01/2023 COMPR EHENS CHERIE METAB OLIC PANEL BUN/creatini ne ratio SEE NOTE: (calc ) 6-22 Not Repor bobbi: BUN and Creat inine are withi n refer ence range . Not Available [address], [address], 07/01/2023 09:28:23 06/28/2007/01/2023 COMPR EHENS CHERIE METAB OLIC PANEL sodium 138 mmol/ L 135-14 6 normal Not Available [address], [address], 07/01/2023 09:28:23 06/28/2007/01/2023 COMPR EHENS CHERIE METAB OLIC PANEL potassium 3.9 mmol/ L 3.5-5. 3 normal Not Available [address], [address], 07/01/2023 09:28:23 06/28/2007/01/2023 COMPR EHENS CHERIE METAB OLIC PANEL chloride 104 mmol/ L 98-110 normal Not Available [address], [address], 07/01/2023 09:28:23 06/28/2007/01/2023 COMPR EHENS CHERIE METAB OLIC PANEL carbon dioxide 28 mmol/ L 20-32 normal Not Available [address], [address], 07/01/2023 09:28:23 06/28/2007/01/2023 COMPR EHENS CHERIE METAB OLIC PANEL calcium 9.4 mg/dL 8.6-10 .4 normal Not Available [address], [address], 07/01/2023 09:28:23 06/28/2007/01/2023 COMPR EHENS CHERIE METAB OLIC PANEL protein, total 7.0 g/dL 6.1-8. 1 normal Not Available [address], [address], 07/01/2023 09:28:23 06/28/2007/01/2023 COMPR EHENS CHERIE METAB OLIC PANEL albumin 4.4 g/dL 3.6-5. 1 normal Not Available [address], [address], 07/01/2023 09:28:23 06/28/2007/01/2023 COMPR EHENS CHERIE METAB OLIC PANEL globulin 2.6 g/dL_ (calc ) 1.9-3. 7 normal Not Available [address], [address], 07/01/2023 09:28:23 06/28/2007/01/2023 COMPR EHENS CHERIE METAB OLIC PANEL albumin/glob ulin ratio 1.7 (calc ) 1.0-2. 5 normal Not Available [address], [address], 07/01/2023 09:28:23 06/28/2007/01/2023 COMPR EHENS CHERIE METAB OLIC PANEL bilirubin, total 0.4 mg/dL 0.2-1. 2 normal Not Available [address], [address], 07/01/2023 09:28:23 06/28/20 23 07/01/2023 COMPR EHENS CHERIE METAB OLIC PANEL alkaline phosphatase 70 U/L 37-153 normal Not Available [facility] [email or web address] [address], [address], 07/01/2023 09:28:23 06/28/20 23 07/01/2023 COMPR EHENS CHERIE METAB OLIC PANEL AST 21 U/L 10-35 normal Not Available [facility] [address], [address], 07/01/2023 09:28:23 06/28/2007/01/2023 COMPR EHENS CHERIE METAB OLIC PANEL ALT 19 U/L 6-29 normal Not Available [facility] [address], [address], 07/01/2023 09:28:23 06/28/2007/01/2023 IODIN E, SERUM /PLAS MA iodine, serum/plasma 56 mcg/L 52-109 This test was devel oped and its elmer tical perfo rmanc e suzanne cteri stics have been deter mined by [facility] [place] It has not been clear ed or appro cherrie by the U.S. Food and Drug Admin istra tion. This assay has been valid ated pursu ant to the CLIA regul ation s and is used for clini jose e purpo ses. Not Available [facility] [address], [address], 07/01/2023 09:28:24 06/28/2007/01/2023 CBC (H/H, RBC, INDIC ES, WBC, PLT) white blood cell count 5.7 thous and/u L 3.8-10 .8 normal Not Available [facility] [facility] [address], [address], 07/01/2023 09:28:25 06/28/2007/01/2023 CBC (H/H, RBC, INDIC ES, WBC, PLT) red blood cell count 4.19 tyson on/uL 3.80-5 .10 normal Not Available [facility] [address], [address], 07/01/2023 09:28:25 06/28/20 23 07/01/2023 CBC (H/H, RBC, INDIC ES, WBC, PLT) hemoglobin 12.9 g/dL 11.7-1 5.5 normal Not Available [address], [address], 07/01/2023 09:28:25 06/28/2007/01/2023 CBC (H/H, RBC, INDIC ES, WBC, PLT) hematocrit 39.3 % 35.0-4 5.0 normal Not Available [facility] [address], [address], 07/01/2023 09:28:25 06/28/2007/01/2023 CBC (H/H, RBC, INDIC ES, WBC, PLT) MCV 93.8 fL 80.0-1 00.0 normal Not Available [address], [address], 07/01/2023 09:28:25 06/28/2007/01/2023 CBC (H/H, RBC, INDIC ES, WBC, PLT) MCH 30.8 pg 27.0-3 3.0 normal Not Available [address], [address], 07/01/2023 09:28:25 06/28/2007/01/2023 CBC (H/H, RBC, INDIC ES, WBC, PLT) MCHC 32.8 g/dL 32.0-3 6.0 normal Not Available [address], [address], 07/01/2023 09:28:25 06/28/2007/01/2023 CBC (H/H, RBC, INDIC ES, WBC, PLT) RDW 12.0 % 11.0-1 5.0 normal Not Available [facility] [address], [address], 07/01/2023 09:28:25 06/28/20 23 07/01/2023 CBC (H/H, RBC, INDIC ES, WBC, PLT) platelet count 253 thous and/u L 140-40 0 normal Not Available [address], [address], 07/01/2023 09:28:25 06/28/2007/01/2023 CBC (H/H, RBC, INDIC ES, WBC, PLT) MPV 11.6 fL 7.5-12 .5 normal Not Available [address], [address], 07/01/2023 09:28:25 06/28/2007/01/2023 THYRO ID PEROX IDASE ANTIB ODIES thyroid peroxidase antibodies 9 IU/mL <9 high Not Available [address], [address], 07/01/2023 09:28:26 06/28/20 23 07/01/2023 VITAM IN B12/F OLATE , SERUM PANEL vitamin B12 924 pg/mL 200-11 00 normal Not Available [address], [address], 07/01/2023 09:28:27 06/28/2007/01/2023 VITAM IN B12/F OLATE , SERUM PANEL folate, serum >24.0 NG/mL normal Refer ence Range Low: <3.4 Borde rline : 3.4-5 .4 Shadia l: >5.4 Not Available [address], [address], 07/01/2023 09:28:27 06/28/2007/01/2023 T3, FREE T3, free 3.2 pg/mL 2.3-4. 2 normal Not Available [address], [address], 07/01/2023 09:28:28 06/28/20 23 07/01/2023 TSH+F REE T4 TSH 2.97 mIU/L 0.40-4 .50 normal Not Available [address] , [place], [address], 07/01/2023 09:28:29 06/28/2007/01/2023 TSH+F REE T4 T4, free 0.9 NG/dL 0.8-1. 8 normal Not Available [facility] [address], [place], [address], 07/01/2023 09:28:29 Result Notes None recorded. 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 Procedures Surgical History Date Name Laterality Status Provider Name and Address Organization Details Recorded Time section completed Not Available [facility] 11/24/2022 04:41:54 procedure on knee completed Not Available [facility] 11/24/2022 04:41:54 Imaging Results None recorded. Procedure Notes None recorded. Medical Equipment None Reported. Allergies Allergen ID Allergen Name Allergen Category Reaction Reaction Severity Criticality Documentation Date Start Date Code Code System Note Provider Name and Address Organization Details Recorded Time 7464 amoxicill in medicatio n Not available Not available Not available 11/24/2022 723 RxNorm Not Available [facility] 3 05:00:49 Medications Name Sig Start Date Stop Date Status Note LastModified by Organization Details LastModified Time cetirizine 10 mg tablet Take 1 tablet every day by oral route in the morning for 30 days. 07/08 completed Not Available Not Available Not Available fluticasone propionate 0.05 % topical cream APPLY TO THE AFFECTED AREA(S) TWICE DAILY DIRECTED UNTIL CLEAR active Not Available Not Available No t Available meloxicam 15 mg tablet TAKE 1 TABLET BY MOUTH ONCE DAILY 07/08 completed Not Available Not Available Not Available prednisolon e acetate 1 % eye drops,suspe nsion 06/30 completed Not Available Not Available Not Available neomycin-po lymyxin-dex ameth 3.5 mg/mL-10,00 0 unit/mL-0.1 % eye drops INSTILL 1 DROP 4 TIMES DAILY INTO EACH EYE FOR 7 DAYS FOR INFECTION 07/08 completed Not Available Not Available Not Available triamcinolo ne acetonide 0.025 % topical ointment 06/30 completed Not Available Not Available Not Available albuterol sulfate HFA 90 mcg/actuati on aerosol inhaler INHALE 1 PUFF BY MOUTH EVERY 4 HOURS NEEDED FOR SHORTNESS OF BREATH AND FOR WHEEZING active Not Available Not Available No t Available clobetasol 0.05 % scalp solution APPLY TO INVOLVED AREA(S) OF SCALP UNTIL CLEAR 07/08 completed Not Available Not Available Not Available tobramycin 0.3 %-dexametha sone 0.1 % eye drops,suspe nsion INSTILL 1 DROP INTO EACH EYE 4 TIMES DAILY FOR 7 DAYS FOR INFECTION 07/08 completed Not Available Not Available Not Available neomycin-po lymyxin-hyd rocort 3.5 mg-10,000 unit/mL-1 % ear drops,susp 06/30 completed Not Available Not Available Not Available Zyrtec 2020 active Not Available Not Available Not Avai lable Adacel (Tdap Adolesn/Mikey lt)(PF)2 Lf-(2.5-5-3 -5)-5 Lf/0.5 mL IM syringe 06/30 completed Not Available Not Available Not Available Tirosint 25 mcg capsule TAKE 1 CAPSULE BY MOUTH ONCE DAILY IN THE MORNING active Not Available Not Available No t Available Multi Vitamin 07/08 completed Not Available Not Available Not Available Emverm 100 mg chewable tablet TAKE ONE TABLET BY MOUTH ONCE active Not Available Not Available No t Available Shingrix (PF) 50 mcg/0.5 mL intramuscul ar suspension, kit 06/30 completed Not Available Not Available Not Available Fluzone Quad (PF) 60 mcg (15 mcg x 4)/0.5 mL IM suspension PHARMACIS T ADMINISTE RED IMMUNIZAT ION ADMINISTE RED AT TIME OF DISPENSIN G 07/08 completed Not Available Not Available Not Available Vitals Date Recorded Body mass index (BMI) Heart rate Body height Oxygen saturation Oxygen saturation in Arterial blood by Pulse oximetry Body temperature Body weight Systolic blood pressure Diastolic blood pressure Provider Name and Address Organization Details Last Updated DateTime 1 25.2 kg/m2 60 /min 171.45 cm 97 % 97 % 98 [degF] 00286.5 6 g 108 mm[Hg] 64 mm[Hg] Not Available [facility] 3 04:45:38 Date Recorded Body mass index (BMI) Body height Oxygen saturation Oxygen saturation in Arterial blood by Pulse oximetry Heart rate Body temperature Body weight Systolic blood pressure Diastolic blood pressure Provider Name and Address Organization Details Last Updated DateTime 2 24.9 kg/m2 171.45 cm 98 % 98 % 57 /min 97.7 [degF] 67369.5 3 g 100 mm[Hg] 65 mm[Hg] Not Available [facility] 3 04:45:38 Date Recorded Body height Body mass index (BMI) Body weight Respiratory rate Body temperature Heart rate Systolic blood pressure Diastolic blood pressure Provider Name and Address Organization Details Last Updated DateTime 3 171.45 cm 26.4 kg/m2 30488.7 3 g 14 /min 97.8 [degF] 64 /min 107 mm[Hg] 67 mm[Hg] Heather Urbina RN [place] - [facility] 3 09:16:04 Date Recorded Body mass index (BMI) Body height Oxygen saturation Oxygen saturation in Arterial blood by Pulse oximetry Heart rate Body temperature Body weight Systolic blood pressure Diastolic blood pressure Provider Name and Address Organization Details Last Updated DateTime 2 25.3 kg/m2 171.45 cm 99 % 99 % 55 /min 97.2 [degF] 76374.1 5 g 110 mm[Hg] 70 mm[Hg] Not Available [facility] 3 04:45:38 Social History Question Answer Notes LastModified by Organizat ion Details LastModified Time Tobacco Smoking Status Never Smoker Not Available [facility] 11/24/2022 04:17:57 What Is Your Level Of Caffeine Consumption? Occasional [id number] Information not available 11/24/2022 How Much Tobacco Do You Chew? None [id number] Information not available 11/24/2022 In The 14 Days Before Symptom Onset, Have You Had Close Contact With A Laboratory-confirm ed COVID-19 While That Case Was Ill? No [id number] Information not available 11/24/2022 In The 14 Days Before Symptom Onset, Have You Had Close Contact With A Person Who Is Under Investigation For COVID-19 While That Person Was Ill? No [id number] Information not available 11/24/2022 Which Illicit Or Recreational Drugs Have You Used? None [id number] Information not available 11/24/2022 Sex: Female Functional Status Question Answer Note LastModified by Organizat ion Details LastModified Time What is your level of alcohol consumption? 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 Never used electronic cigarettes [id number] Information not available 11/24/2022 Mental Status None recorded. Family History Relationship Description Onset Age of this Age Resolved Age Notes LastModified by Organization Details LastModified Time Mother Hypothyroidi sm [id number] Not available 11/24/2022 04:41:57 Mother Osteoporosis [id number] Not available 11/24/2022 04:41:57 Medical History Condition Response HEART ARRHYTHMIA HIGH CHOLESTEROL / HYPERLIPIDEMIA Y Gynecological HistoryNo gynecological history recorded. Obstetrics History GPAL:G 0 P 0 0 0 0 Past Encounters Encounter ID Performer Location Encounter Start Date Encounter Closed Date Diagnosis/Indication Diagnosis SNOMED-CT Code Diagnosis ICD10 Code Diagnosis Note [id number] Catie Acosta MD [facility] [place] [address] [place] [address] 01/12/2021 00:00:00 01/12/2021 09:51:07 [id number] [facility] [place] [address] [place] [address] 03/02/2022 00:00:00 03/02/2022 18:20:10 [id number] Catie Acosta MD [facility] [place] [address] [place] [address] 08/10/2022 00:00:00 08/10/2022 10:58:21 [id number] Catie Acosta MD [facility] [place] [address] [place] [address] 07/08/2023 09:00:29 07/08/2023 09:55:50 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 Will transition off thyroid support to tirosint 25 88 mcg daily as this contains no fillers and generally better tolerated on the stomach. She was reminded to take her tirosint on empty stomach with glass of water and wait one hour to eat or have her coffee in morning and up to 4 hours if ever taking any heartburn or reflux medication s to help optimize absorption . Discussed paleo like diet with restrictio n of GMOs to help with energy and to optimize absorption of vitamins and minerals and reduce inflammati on. She was reminded of importance of diet and restrictio n of processed foods and refined sugars with history of autoimmune thyroid disease. She is aware to have PCP or new endocrinol ogist repeat thyroid panel in 2 months to assess need to modify therapy further. Spent up to 15 minutes preparing to see the patient (eg, review of tests), obtaining and/or reviewing separately obtained history, performing a medically appropriat e examinatio n and evaluation , counseling and educating the patient, ordering medication s, tests, along with documentin g clinical informatio n in the electronic health record, independen tly interpreti ng results and communicat ing results to the patient. Patient can be followed by PCP - she/he is aware of my resignatio n and last day of July 08. If needed his/her PCP can refer patient to another endocrinol ogist in the area. All questions /concerns answered and refills necessary at visit today. Health Concerns Section Related Observation LastModified by Organization Detai ls LastModified Time None Recorded Concern Status LastModified by Organization Details LastModified Time None Recorded Advance Directives Directive None Recorded Payers Encounter Date Sequence Insurance Name Policy Number Policy Munoz Covered Member ID Munoz Member ID Guarantor Name 07/08/2023 1 [employer] [id number] Claude Denise [id number] Luna Denise Notes Date Note Type Note Provider Name and Address Organization Details Recorded Time 07/08/2023 text/html 57 yo female com es in for follow up in management of 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 last seen in July at that time we continued thyroid support. She has gained 10 pounds since her last visit. She is struggling with pepsi and still drinks 2 a day. She has no fatigue or low energy. The only symptoms she is having is lower pulse and had to see cardiolgist earlier this year. labs from 06/28/23:TSH of 2.97 uIU/mlFT4 of 0.9 ng/dLFT3 of 3.2 pg/mlB12/folate normalTPO 9 IU/mlH/H normaliodine 56 ug/mlglucose 92 mg/dLCr normalLFT normal Catie Acosta MD [address] [facility] [address], [place], [address], [place] [facility] 07/08/2023 11:11:07 OBGyn Episode No OBEpisode recorded.
--- OUTSIDE RECORDS SUMMARY | 2025-02-26 11:12 | XMS_ITS | Clinical Summary ---
Author Organization [employer] [facility] Address [address] [place] [address] Care Team Providers Care Ui Ux Engineer Name Role Phone Unavailable Primary Care Provider Unavailabl e Active Problems Patient Care Coordination No te Formatting of this note migh t be different from the original. 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 Gender Identity Not on file Sexual Orientation Not on file Plan of Treatment Health Maintenance Due Date Last Done Comments DTAP/TDAP/TD VACCINES (1 - Tdap) 12/23/1982 HPV/Cotest (21-29) 12/23/1984 HPV/Cotest (30-65) 12/23/1993 COLORECTAL SCREENING 12/23/2008 Colorectal Cancer Screening 12/23/2008 FIT-DNA Q 3 years 12/23/2008 FIT/FOBT Q 1 year 12/23/2008 Flex Sig/CT Colonography Q 5 years 12/23/2008 ZOSTER VACCINE (1 of 2) 12/23/2013 CERVICAL CANCER SCREENING 03/30/2021 PAP SMEAR 03/30/2021 03/30/2018, 10/2015, 11/26/2015 BREAST CANCER SCREENING 05/22/2021 05/22/20, 05/22/2020, 04/26/2019, Additional history exists INFLUENZA VACCINE (#1) 2024 RSV VACCINE (60+ or ) (1 - 1-dose 75+ series) 12/23/2038
== END 2025-02-26 10:46 | disposition home or self-care (01) ==
PROVIDERS: PCP Family Medicine; Visit Provider Orthopaedic Surgery
DX: M17.12 Unilateral primary osteoarthritis, left knee (principal); M76.62 Achilles tendinitis, left leg
CPT/HCPCS: 73700

== ENCOUNTER 2025-03-07 10:07 | Outpatient (CLI) | payer BC, SELFPAY ==
--- NOTE | 2025-03-07 10:08 | ECG_ITS ---
Test Date: 2025-03-07 10:43:54 Measurements Intervals [place] Rate: 50 P: -3 ND: 182 QRS: 14 QRSD: 95 T: -8 QT: 426 QTc: 391 Interpretive Statements SINUS BRADYCARDIA CANNOT R/O SEPTAL INFARCT, AGE INDETERMINATE BORDERLINE ST-T WAVE ABNORMALITY- ANT/INF LEADS ABNORMAL ECG No previous ECG available for comparison Electronically Signed On 03-07-2025 11:20:16 CDT by Samuel Brennan D.O.
--- OUTSIDE RECORDS SUMMARY | 2025-03-07 11:00 | XMS_ITS | Referral Summary ---
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 Gender Identity Not on file Sexual Orientation Not on file Last Filed Vital Signs Vital Sign Reading Time Taken Comments Blood Pressure 114/72 11/10/2022 8:36 AM VERIFICATION CLERK Pulse 60 11/10/2022 8:36 AM VERIFICATION CLERK Temperature - - Respiratory Rate - - Oxygen Saturation 97% 11/10/2022 8:36 AM VERIFICATION CLERK Inhaled Oxygen Concentration - - Weight 75.3 kg (166 lb) 11/10/2022 8:36 AM VERIFICATION CLERK Height 170.2 cm (5' 7) 11/10/2022 8:36 AM VERIFICATION CLERK Body Mass Index 26 11/10/2022 8:36 AM VERIFICATION CLERK Plan of Treatment Not on [place] [address] [employer] [place] [address] Care Teams Department Director Relationship Specialty Start Date End Date Jeannine Hollis MD PCP - General Family Medicine 09/24/22
--- OUTSIDE RECORDS SUMMARY | 2025-03-07 11:00 | XMS_ITS | Clinical Summary ---
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
--- OUTSIDE RECORDS SUMMARY | 2025-03-07 11:00 | XMS_ITS | Data Portability ---
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 Name Role Phone WALLY JUSTIN Primary Care [...] Lab CMP, serum or plasma 2020 021 [employer] [facility], [address], [place], [address], 12:15:05 TSH, serum or plasma 2020 021 [employer] [facility], [address], [place], [address], 12:15:05 CBC w/ auto diff 2020 021 [facility], [address], [address], [place], [address], 1 12:15:05 HbA1c (hemoglobin A1c), blood 2020 021 [facility], [address], [address], [place], [address], 1 12:15:05 lipid panel, serum 2020 021 [facility], [address], [address], [place], [address], 1 12:15:06 vitamin D, 1,25-dihydr oxy, serum [address], [address], [place], [place], [address], 1 17:09:02 TSH, serum or plasma 2019 020 [facility], [address], [place], [place], [address], 0 11:22:21 thyroglobul in Ab, serum 2019 020 [facility], [address], [place], [place], [address], 0 10:53:44 T3, free, serum or plasma 2019 020 [facility], [address], [place], [place], [address], 0 10:53:44 T4, free, serum 2019 020 [facility], [address], [place], [address], 0 10:53:44 thyroid peroxidase (tpo) Ab, serum 2019 [facility], [address], [place], [place], [address], 0 10:53:44 T3, total, serum 2019 [facility], [address], [place], [place], [address], 0 23:18:38 T4, free, serum 2019 [facility], [address], [place], [place], [address], 0 23:18:38 TSH, serum or plasma 2019 [facility], [address], [place], [place], [address], 0 23:18:38 vitamin D, 25-hydroxy, total, serum 2019 [facility], [address], [place], [place], [address], 0 23:18:38 lipid panel, serum 2019 [facility], [address], [place], [place], [address], 0 23:18:39 CMP, serum or plasma 2019 [facility], [address], [place], [place], [address], 0 23:48:21 CBC w/ auto diff 2019 [facility], [address], [place], [place], [address], 0 23:18:39 HbA1c (hemoglobin A1c), blood 2019 [facility], [address], [address], [place], [address], 0 23:18:39 Referral None recorded. Procedures None [...] and labor atory findi ngs. See https ://PageStitch/s it/ defau lt/fi 0 - 36754 _002_ 01.pd f for furth er infor reaganio n. Test perfo rmed by [employer], [address], [place] [address] , Vinh Florian ra, , Labor atory [...] and labor atory findi ngs. See https ://PageStitch/s ites/ defau lt/fi 018-0 /AW- 28992 _002_ 01.pd f for furth er infor reaganio n. Test perfo rmed by [employer] [facility], [address], [place] [address] , Vinh Florian ra, , Labor atory Dire tor. End of Repor t Techn ical servi kel provi ded by [employer], [employer] [facility], [address] [place] [address] Braxton Coats MD, Labor atory Dire tor. Case revie wed and diagn osis rende red at [employer] ada, [address] [place] [address] Braxton Coats MD, Labor atory Direc tor. CONFI DENTI AL Not Available [facility]) [address], [place], [address], 04/25/2020 12:00:53 04/23/20 20 04/25/2020 HPV DNA, high- risk HPV high risk NOT DETECT ED normal Not Available [facility] ([facility]) [address], [place], [address], 04/25/2020 12:00:53 05/17/20 22 05/17/2022 IMAGE GUIDE D PAP AND HPV REGAR DLESS image guided Pap, HPV regardless of Pap result SEE RESULT S BELOW CASE REPOR T: Cytol ogy Gynec ologi jose e Repor t Case: [id number] Autho rowan garcia Provi royce: Eliezer Candelario Colle cted: 05/17 1501 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 [facility] ([facility]) [address] [place] [address], [place], [address], 06/03/2020 18:31:55 01/29/20 22 01/27/2022 MAMMO , scree eliot, bilat eral No observ ation record ed. [address] [facility], [place], [address], 02/01/2022 20:54:54 02/05/20 22 DEXA, axial skele ton + verte bral fract ure asses sment No observ ation record ed. [email or web address] [facility] [address], [place], [address], 02/11/2022 16:03:57 Result Notes Documentation Provider Name and Address Organization Details Recorded Time General Health Panel, Blood : vit D pending L Ayran [facility] 05/13/2021 13:27:09 Problems Name Problem SNOMED Code Status Onset Date Resolution Date Notes Provider Name and Address Organization Details Recorded Time SNOMED CT Concept Completed 201705/17/2022 Encntr for general adult medical exam w/o abnormal findings; Recorded Elsewhere : No Locati on: [facility] So urce: EHR Chron ic: N Practic e ID: 0001 Bill able Time: 08:30:00 AM Linda Lees [facility] 2 09:30:22 Screenin g for malignan t neoplasm of rectum Completed 201505/17/2022 Encounter for screening for malignant neoplasm of rectum;Re corded Elsewhere : No Locati on: [facility] So urce: EHR Chron ic: N Practic e ID: 0001 Bill able Time: 08:30:00 AM Linda Lees [facility] 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 2 09:30:22 Amenorrh ea [id number] Completed 201105/17/2022 Absence of menstruat ion;Recor ded Elsewhere : No Locati on: [facility] So urce: EHR Chron ic: N Practic e ID: 0001 Bill able Time: 09:30:00 AM Linda Lees [facility] 2 09:30:22 Screenin g for malignan t neoplasm of cervix Completed 201005/17/2022 Screening for malignant neoplasms of the cervix;Re corded Elsewhere : No Locati on: [facility] So urce: EHR Chron ic: N Practic e ID: 0001 Bill able Time: 10:30:00 AM Linda davenport [facility] 2 09:30:22 Malaise and fatigue [id number] Completed 201405/17/2022 Fatigue;R ecorded Elsewhere : No Locati on: [facility] So urce: EHR Chron ic: N Practic e ID: 0001 Bill able Time: 09:00:00 AM Linda davenport [facility] 2 09:30:22 Speciali zed medical examinat ion Completed 201405/17/2022 Gynecolog ical Examinati on;Record ed Elsewhere : No Locati on: [facility] So urce: EHR Chron ic: N Practic e ID: 0001 Bill able Time: 09:00:00 AM Linda davenport [facility] 2 09:30:22 Adult health examinat ion Completed 201405/17/2022 Routine general medical examinati on at a health care facility; Practice ID: [id number] Linda davenport [facility] 2 09:30:22 Finding of upper limb [id number] Completed 201505/17/2022 Localized swelling, mass and lump, upper limb, bilateral ;Practice ID: [id number] Linda davenport [facility] 2 09:30:22 Obesity 920487100 Completed 201405/17/2022 Obesity;R ecorded Elsewhere : No Locati on: [facility] So urce: EHR Chron ic: N Practic e ID: 0001 Bill able Time: 09:00:00 AM Linda davenport [facility] 2 09:30:22 Finding by site Completed 201605/17/2022 Dermatiti s, unspecifi ed;Record ed Elsewhere : No Locati on: [facility] So urce: EHR Chron ic: N Practic e ID: 0001 Bill able Time: 08:15:00 AM Linda Lees [facility] 2 09:30:22 Micturit ion finding Completed 201605/17/2022 Urinary incontine nce;Recor ded Elsewhere : No Locati on: [facility] So urce: EHR Chron ic: N Practic e ID: 0001 Bill able Time: 08:15:00 AM Linda Lees [facility] 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 2 09:30:22 Problem Notes None recorded. Procedures Surgical History Date Name Laterality Status Provider Name and Address Organization Details Recorded Time 01/28/20 Date of Last Mammogram completed [facility] 05/17/2022 09:43:42 04/23/20 Date of Last Pap Smear completed [facility] 05/17/2022 09:42:13 09/26/19 07 chest wall excision completed [facility] 04/23/2020 10:20:15 Caesarean Section completed [facility] 05/17/2022 09:45:46 procedure on elbow completed [facility] 04/23/2020 10:19:55 refashioning of ingrowing toenail completed [facility] 04/23/2020 10:20:28 procedure on knee completed [facility] 04/23/2020 10:20:35 Imaging Results None recorded. Procedure Notes None recorded. Medical Equipment None Reported. Allergies Allergen ID Allergen Name Allergen Category Reaction Reaction Severity Criticality Documentation Date Start Date Code Code System Note Provider Name and Address Organization Details Recorded Time 1495 amoxicill in medicatio n Not available Not available Not available 04/23/2020 723 RxNorm Lola davenport [place] - [facility] 0 10:17:59 Medications Name Sig Start [...] Prescrib ed Elsewher e: No Locat ion: [facility] M odify By: gail henriquez DateTime [...] Prescrib ed Elsewher e: Yes Loca tion: [facility] M odify By: fransisca gaitan DateTime [...] active Prescrib oliva cantu: Yes Loca tion: [facility] M odify By: gail dunbarunter DateTime [...] Updated DateTime 04/23/2020 2057.4 cm 0.2 kg/m2 42147.59 g 121 mm[Hg] 73 mm[Hg] Lola [facility] 0 11:07:37 Date Recorded Body height Body mass index (BMI) Body weight Systolic blood pressure Diastolic blood pressure Provider Name and Address Organization Details Last Updated DateTime 04/29/2021 168.91 cm 25.3 kg/m2 21404.19 g 112 mm[Hg] 67 mm[Hg] [facility] 1 09:51:58 Date Recorded Body height Body mass index (BMI) Body weight Systolic blood pressure Diastolic blood pressure Provider Name and Address Organization Details Last Updated DateTime 05/08/2020 170.18 cm 24.6 kg/m2 61587 g 109 mm[Hg] 68 mm[Hg] Lola Proctor [facility] 0 11:55:21 Date Recorded Body height Body mass index (BMI) Body weight Systolic blood pressure Diastolic blood pressure Provider Name and Address Organization Details Last Updated DateTime 05/17/2022 168.28 cm 25 kg/m2 99412.41 g 126 mm[Hg] 72 mm[Hg] [facility] 09:45:17 Social History Question Answer Notes LastModified by Organizat ion Details LastModified Time Tobacco Smoking Status Never Smoker Linda Lees ethel [facility] 05/17/2022 09:45:42 Do You Have An [...] Or The Highest Degree You Have Received? [id number] Information not available 05/17/2022 Do You Use [...] anxious, or unable to sleep at night)? IR7525-6 Information not available 05/17/2022 Family History Relationship Description Onset Age of this Age Resolved Age Notes LastModified by Organization Details LastModified Time Mother Disorder of thyroid gland [email or web address] Not available 2019 10:18:44 Mother Acute stroke Not avai lable 05/17/2022 09:29:12 Sister Disorder of thyroid gland [email or web address] Not available 2019 10:18:44 Father Acute stroke Not avai lable 05/17/2022 09:29:12 Father Malignant neoplasm of skin [email or web address] Not available 2021 09:29:12 Brother Heart irregularly irregular [email or web address] Not available 2021 09:29:12 Medical History Condition Response Allergies (Food, seasonal, environmental ) Y Other N Breast Cancer N Drug/Latex Allergies/Reactions Y Blood Transfusion N Dermatologic Disorders N Lung Disease N Defects or Inherited Disease N Breast Problem N Gestational Diabetes N Hematologic disorders N Anesthesia Complications Y History of STI N Deep Vein Thrombosis N Polycystic ovary syndrome N Anxiety Disorder N Autoimmune disease N Arthritis N Infertility N Polyps N Acid Reflux (GERD) N History of abnormal pap N Cancer N Stroke N Varicosities N Neurologic/Epilepsy N Endometriosis N High Cholesterol N Headaches N Fibromyalgia N Kidney Disease N Heart Problems Y Kidney or Bladder Problems N Thyroid Problems N GI Problems N Eating Disorder N Anemia N Art (IVF or FET) N Psychiatric Illness N Ovarian Cancer N Diabetes N Pulmonary (TB, Asthma) N Hepatitis/Liver Disease N Eczema N Urinary Tract Infection N Abuse/Domestic Violence N Asthma N Trauma/Violence N Depression/ depression N Heart Disease N Pre-Eclampsia N Hypertension N Osteoporosis N Thrombophilias N Gynecological History Statement/Question Response Abnormal Pap [...] SNOMED-CT Code Diagnosis ICD10 Code Diagnosis Note [id number] Sade Bonilla [place] [address] [address] 04/23/2020 10:59:04 04/23/2020 12:52:57 Gynecologic examination 51339019 Z01.419 Take Calcium with Vitamin D 12-1500mg daily. Do monthly self breast exams. It is advised to get annual flu shot in the fall and she could obtain at [facility] or [facility] care clinic. If you haven't received the [...] to this email Adult heal th examination 840532722 Z00.00 Family Hx thyroid issues. Thinning hair. [facility] Fasting [id number] Sade Bonilla [facility] [address],[facility] [place] [address] 05/08/2020 11:48:37 05/11/2020 15:07:52 Hypothyroidism 77223384 E03.9 We agreed to complete full thyroid [...] counseling and review of plan of care. [id number] Sade Bonilla [facility] [address] [address] 04/29/2021 09:32:47 04/29/2021 10:34:23 Gynecologic examination 74547950 Z01.419 Take Calcium with Vitamin D 12-1500mg daily. Do monthly self breast exams. It is advised to get annual flu shot in the fall and she could obtain at [facility] or [facility] care clinic. If you haven't received the [...] issues or concerns Note: Son goes to [facility] for engineerin g Adult heal th examination [id number] Z00.00 Updated routine labs requested. [id number] Sade Bonilla [facility] [address] [address] 05/17/2022 09:28:58 05/17/2022 10:06:43 Gynecologic examination [id number] Z01.419 Take Calcium with Vitamin D 12-1500mg daily. Do monthly self breast exams. It is advised to get annual flu shot in the fall and she could obtain at [facility] or [facility] clinic. If you haven't received the Tdap [...] None Recorded Advance Directives Directive N: Payers Insurance Date Sequence Insurance Name Policy Number Policy Munoz Covered Member ID Munoz Member ID Guarantor Name 05/15/2022 1 [place] [id number] Claude Denise [id number] Claude Denise Notes Date Note Type [...] to date on colonoscopy screening [facility] [address], [place], [address], [facility] 04/23/2020 12:33:38 05/08/2020 text/html Patient is here to f/u recent abn TSH levels. [facility]ed [facility] [address], [place], [address], [facility] 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 05/17/2022 10:01:47 OBGyn Episode Ob Episode Information Episode Created Date Number of Fetuses Patient Bloodtype Patient rh Status Prepregnancy Weight lbs Domestic Partner Domestic Partner Phone Father Name Dragline Oiler Status 04/23/20 20 1 CLOSED Fetus Data [...]
--- OUTSIDE RECORDS SUMMARY | 2025-03-07 11:00 | XMS_ITS | Clinical Summary ---
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 Gender Identity Not on file Sexual Orientation Not on file Obstetrics History Last Filed Vital Signs Vital Sign Reading Time Taken Comments Blood Pressure 114/72 11/10/2022 8:36 AM FLORAL MERCHANDISER Pulse 60 11/10/2022 8:36 AM FLORAL MERCHANDISER Temperature - - Respiratory Rate - - Oxygen Saturation 97% 11/10/2022 8:36 AM FLORAL MERCHANDISER Inhaled Oxygen Concentration - - Weight 75.3 kg (166 lb) 11/10/2022 8:36 AM FLORAL MERCHANDISER Height 170.2 cm (5' 7) 11/10/2022 8:36 AM FLORAL MERCHANDISER Body Mass Index 26 11/10/2022 8:36 AM FLORAL MERCHANDISER Plan of Treatment Health Maintenance Due Date [...] patient's age to complete this topic Insurance [employer] [place] Care Teams Paste Maker Relationship Specialty Start Date End Date Jeannine Hollis MD PCP - General Family Medicine 09/24/22
== END 2025-03-07 10:08 | disposition home or self-care (01) ==
LOC: ANHCARD 10:08
PROVIDERS: PCP Family Medicine; Visit Provider Orthopaedic Surgery
DX: R94.31 Abnormal electrocardiogram [ECG] [EKG] (principal)
CPT/HCPCS: 93005

== ENCOUNTER 2025-05-25 13:52 | Emergency (ER) | payer BC, SELFPAY ==
--- OUTSIDE RECORDS SUMMARY | 2006-06-02 03:00 | XMS_ITS | Continuity of Care Document ---
Author Organization [facility] Address [address] [place] [address] Phone Care Team Providers Care Production Assembly Supervisor Name Role Phone Marianna Aviles Unavailable Unavailable Advance Directives Directive Yes / No Effective Date File Name No Information Encounters Encounter Description Practice Location Reason(s) For Visit Diagnoses Date Provider Providers Copied on Encounter [facility], [address], [place], [place], [address], [place] tel:[phone] [facility] [place] No Information Sep-0 7-200 6 Traci Cabral. [address] , [address], [place], [address], [place]. tel:[phone] Family History Family Member Type Diagnosis Age At Onset No Information Payers Payer name Insurance type Covered democrat ID Authoriza timaureen(s) [facility] CI [id number] Social History Type Description Quantity Date Captured [...]
--- OUTSIDE RECORDS SUMMARY | 2006-06-02 03:00 | XMS_ITS | Continuity of Care Document ---
Author Organization [facility] Address [address] [place] [address] Phone Care Team Providers Care Student Nurse Name Role Phone Marianna Aviles Unavailable Unavailable Advance Directives Directive Yes / No Effective Date File Name No Information Encounters Encounter Description Practice Location Reason(s) For Visit Diagnoses Date Provider Providers Copied on Encounter [facility], [address], [place], [place], [address], [place] tel:[phone] [facility] [place] No Information Sep-0 7-200 6 Traci Cabral. [address] [facility] [place] , [address], [place], [address], [place]. tel:[phone] Family History Family Member Type Diagnosis Age At Onset No Information Payers Payer name Insurance type Covered libertarian ID Authoriza timaureen(s) [facility] CI [id number] Social History Type Description Quantity Date Captured [...]
--- OUTSIDE RECORDS SUMMARY | 2016-08-25 05:15 | XMS_ITS | Continuity of Care Document ---
Author Organization [facility] Address [address] [place] [address] [place] [address] Phone Care Team Providers Care Lot Worker Name Role Phone Adam Singh MD Unavailable Unavailable Allergies, Adverse Reactions, Alerts Substance Reaction Status Criticality No Known Allergies Active No Inform ation Medications Medication Instructions Dosage Effective Dates (start - stop) Status Comments No Drug Therapy Prescribed Procedures Procedure Date PREV VISIT, EST, AGE 40-64 OFFICE/OUTPATIENT VISIT, EST PREV VISIT, EST, AGE 40-64 OFFICE/OUTPATIENT VISIT, EST PREV VISIT, EST, AGE 40-64 Advance Directives Directive Yes / No Effective Date File Name No Information Encounters Encounter Description Practice Location Reason(s) For Visit Diagnoses Date Provider Providers Copied on Encounter PREV VISIT, EST, AGE 40-64 [facility], [address] [place], [place], [address], [place] tel:[phone] [facility] PHysical (chief complaint) Encounter for general adult medical exam w abnormal findingsAbnormal weight gainAlopecia NOSNevus, non-neoplastic 0-201 6 Francisco Medina. [address], [place], [place], [address] , [place]. tel:[phone] Referring Provider: Adam Singh, [address], [place], [place], [address]. tel:[phone] PREV VISIT, EST, AGE 40-64 [facility], [address] [place], [address], [place] tel:[phone] [facility] Physical (chief complaint) Routine Medical ExamAbnormal weight gainRash and other nonspecific skin eruptionRoutine Medical Exam 4 Francisco Medina. [address] [facility] [place], [address] , . [phone] Referring Provider: Adam Singh [address], [place], [place], [address]. tel:[phone] PREV VISIT, EST, AGE 40-64 [facility], [address], [place], [place], [address], [place] tel:[phone] [facility] Physical (chief complaint) rash (chief complaint) Dietary surveillance and counselingRoutine Medical ExamRoutine Medical Exam 3 Francisco Medina. [address], [facility] A, [place], [place], [address] , . [phone] Family History Family Member Type Diagnosis Age At Onset Sister Problem (finding) hypothyroidism Father Problem (finding) Stroke Mother Problem (finding) hypothyroidism Payers Payer name Insurance type Covered democrat ID Authoriza tion(s) No Information Social History Type Description Quantity Date Captured Comments Alcohol Use Details No Caffeine Use Details Unknown Tobacco Use Status Never smoked tobacco 2015 Smoking Status Never smoker Non-Smoking Tobacco Use Details : No Details Available : No Details Available Sex Female Vital Signs Date / Time: Height Weight BMI Pulse Rate Blood Pressure Temperature Respiratory Rate Body Surface Area Head Circumference BMI percentile Pulse Ox Inhaled Ox 11:50 AM 165.10 cm 157.00 lbs 26.1 3 kg/m eter (2) 58 /min 110/70 mm[Hg] 98.0 F 18 /min Chief Complaint And Reason For Visit From encounter dated '08/25/2016 10:15'. PHysical (chief complaint). Description: Pt needs annual physical. Pt states that she gained some weight and she feels that she is losing some hair recently Pt wants to get some lab work. Pt denies any fatigue. Pt is postmeno. Pt also notices some wrinkle and some dark spots on skin. Pt denies any other complaints Plan Of Treatment Date Type Action Status Referral Ordered: Hitesh Heath (related to Nevus, non-neoplastic) ordered Referral Referred To: Hitesh Heath [address] [place], [phone] Ordered: Referrals: Hitesh Heath. Evaluate and treat ordered Referral Ordered: MAMMOGRAM, SCREENING ordered Referral Ordered: COLONOSCOPY AND BIOPSY ordered Referral Ordered: CERVICAL SPINE XRAY 7 VIEWS ordered History Of Present Illness Encounter Date Complaint History Of Prese nt Illness PHysical Pt needs annual physical. Pt states that she gained some weight and she feels that she is losing some hair recently Pt wants to get some lab work. Pt denies any fatigue. Pt is postmeno. Pt also notices some wrinkle and some dark spots on skin. Pt denies any other complaints Medications Administered Medication Instructions Dosage Effective Dates (start - stop) Status Comments No Drug Therapy Prescribed Instructions Date Instruction Additional Infor reaganion Dietary counseling Related to Di etary surveillance counseling Decrease caloric intake Related to Dietary surveillance counseling Assessments Type Assessment Date assessment Encounter for general adult medi jose e exam w abnormal findings assessment Abnormal weight gain assessment Alopecia NOS assessment Nevus, non-neoplastic 6 Mental Status Date Cognitive Assessment Orientation - [place] ed to time, place, person, situation.
--- OUTSIDE RECORDS SUMMARY | 2016-08-25 05:15 | XMS_ITS | Continuity of Care Document ---
Author Organization [facility] Address [address] [place] [address] [place] [address] Phone Care Team Providers Care Pit Laborer Name Role Phone Adam Singh MD Unavailable [...] on Encounter PREV VISIT, EST, AGE 40-64 [facility], [address] [place], [place], [address], [place] tel:[phone] [facility] PHysical (chief complaint) Encounter for general adult medical exam w abnormal findingsAbnormal weight gainAlopecia NOSNevus, non-neoplastic 0-201 6 Francisco Medina. [address], [place], [place], [address] , [place]. tel:[phone] Referring Provider: Adam Singh, [address], [place], [place], [address]. tel:[phone] PREV VISIT, EST, AGE 40-64 [facility], [address] [place], [address], [place] tel:[phone] [facility] Physical (chief complaint) Routine Medical ExamAbnormal weight gainRash and other nonspecific skin eruptionRoutine Medical Exam 4 Francisco Medina. [address] [place], [address] , . [phone] Referring Provider: Adam Singh [address], [place], [place], [address]. tel:[phone] PREV VISIT, EST, AGE 40-64 [facility], [address], [place], [place], [address], [place] tel:[phone] [facility] Physical (chief complaint) rash (chief complaint) Dietary surveillance and counselingRoutine Medical ExamRoutine Medical Exam 3 Francisco Medina. [address], [facility] [address], [place], [place], [address] , . [phone] Family History Family Member Type Diagnosis Age At Onset Sister Problem (finding) hypothyroidism Father Problem (finding) Stroke Mother Problem (finding) hypothyroidism Payers Payer name Insurance type Covered alliance party ID Authoriza tion(s) No Information Social History [...] non-neoplastic) ordered Referral Referred To: Hitesh Heath [address] [place], [phone] Ordered: Referrals: Hitesh Heath. Evaluate and treat [...] Mental Status Date Cognitive Assessment Orientation - [place] ed to time, place, person, situation.
--- OUTSIDE RECORDS SUMMARY | 2025-05-25 13:56 | XMS_ITS | Clinical Summary ---
Author Organization [facility] Address [address] [place] [address] Care Team Providers Care Silver Designer Name Role Phone Jeannine Hollis MD Primary Care Provider [phone] Source Comments [facility],non-owned Affiliates and Associated Physician Practices is amultiple site organization consisting of ambulatory clinics and hospital sitesin [place], [place], [place] and [place]. This disclosure is being madepursuant to the Care Everywhere program and may not contain all information available regarding this patient. Last updated 18.[facility] [employer] Allergies Active Allergy Reactions Criticality Noted Date Comments Amoxicillin Unknown 09/29/2022 Midazolam Rash Medium 06/10/2024 Medications * Be aware that medications may not be up to date on this document. Alwaysverify current medications with the patient. cephalexin (Keflex) 500 MG capsule Take 4 pills (2g) at one time 30-60 minutes prior to Mohs surgery 4 capsule 05/01/2025 Active vitamin D3 (Cholecalcifero l) 10 MCG (400 UNIT) capsule Active Ferrous Sulfate (IRON PO) Multi Vitamin Active Active Problems Problem Noted Date Diagnosed Date AK (actinic keratosis) 05/21/2025 Bradycardia 05/21/2025 Family history of squamous cell carcinoma 2024 Hypothyroidism 05/21/2025 Degenerative joint disease of left knee 05/21/20 25 Pain in left elbow 05/21/2025 Pharyngitis 05/21/2025 Primary osteoarthritis of knees, bilateral 05/21 Right knee pain 05/21/2025 Shortness of breath 05/21/2025 Orthopedic aftercare for joint replacement 05/21 Upper respiratory infection 05/21/2025 Bradycardia by electrocardiography 09/29/2022 Encounters Date Type Department Care Team Description 05/21/2025 2:50 PM CDT Office Visit [facility] Dermatology [address] [place] [phone] 05/21/2025 Travel 05/13/2025 Telephone [facility] [address] [place] [phone] Luisa Turcois MD Wound Care 05/09/2025 8:15 AM CDT Clinical Support [facility] Derm[facility]ology [address] [place] [phone] Personal history of skin cancer 05/09/2025 Travel 05/02/2025 9:15 AM CDT Procedure visit [facility] - Dermatology [address] [place] [phone] Luisa Turcios MD 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 05/02/2025 Travel 05/01/2025 Orders Only [facility] - Dermatology [facility] [address] [place] [phone] Dee Romeo LPN 04/24/2025 Telephone [facility] - Dermatology [address] [place] [address] Luisa Turcios MD Appointment 04/02/2025 Lab Requisition [facility] - DermPath Lab [address] [place] [address] Loy Perez MD from Last 3 Months Social History Tobacco Use Types Packs/Day Years Used Date Smoking Tobacco: Never Smokeless Tobacco: Never Tobacco Cessation:Counseling Given: Not Answered Comments Unknown Sex and Gender Information Value Date Recorded Sex Assigned at Not on file Legal Sex Female 7:42 AM CDT Gender Identity Not on file Sexual Orientation Not on file Plan of Treatment Upcoming Encounters Date Type Department Care Team (Late st Contact Info) Description 06/06/2025 10:00 AM CDT Clinical Support [facility] - Dermatology [address] [place] [address], [facility] [place] [address] Luisa Turcios MD [address] [place] [address] [address] [place] [address] Health Maintenance Due Date Last Done Comments COLOGUARD (AGES 45-75) - COL ON CA SCREENING 1963 COLON MONITORING 1963 COLONOSCOPY - COLON CA SCREENING 1963 CT COLONOGRAPHY - COLON CA SCREENING 1963 Colorectal Cancer Screening 1963 FIT - COLON CA SCREENING 1963 FLEX SIG - COLON CA SCREENING 1963 LIPID TESTING 1963 MAMMOGRAM 1963 HIV SCREENING 12/23/1978 HEPATITIS C SCREENING 12/19/1981 DTAP/TDAP/TD VACCINES (1 - Tdap) 12/23/1982 PNEUMOCOCCAL VACCINE 50+ (1 of 1 - PCV) 12/23/2013 ZOSTER VACCINE (1 of 2) 12/23/2013 COVID-19 VACCINE (3 - 2023-2 5 season) 2024 05/23/2021, 04/27/2021 DEPRESSION SCREENING 09/26/2024 PAP SMEAR 05/17/2025 05/17/2022 INFLUENZA VACCINE (#1) 2025 Respiratory Syncytial Virus (RSV) Vaccine Pt: or over 60 yrs (1 - 1-dose 75+ series) 12/23/2038 HEPATITIS B VACCINE Aged Out No longe r eligible based on patient's age to complete this topic HIB VACCINE Aged Out No longer eligi ble based on patient's age to complete this topic HPV VACCINE Aged Out No longer eligi ble based on patient's age to complete this topic MENINGOCOCCAL (Group B) VACCINE SHARED DECISION-MAKING Aged Out No longer eligible based on patient's age to complete this topic MENINGOCOCCAL GROUPS A/C/Y/W VACCINE Aged Out No longer eligible b ased on patient's age to complete this topic Procedures Procedure Name Priority Date/Time Associated Diagnosis Comments ID REPR CMPL WND HEAD,FAC,HAND 2.6-7.5 Routine 05/02/2025 1:54 PM CDT 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 ID [facility] MOHS MG TQ H/N/H/F/G EA ADDL STAG Routine 05/02/2025 1:54 PM CDT 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 ID [facility] MOHS MG TQ H/N/H/F/G 1ST STAG 5 BLOC Routine 05/02/2025 1:54 PM CDT 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 DERMATOPATHOLOGY Routine 03/28/2025 12:0 0 AM CDT from Last 3 Months Results * ID [facility] MOHS MG TQ H/N/H/F/G 1ST STAG 5 BLOC, ID [facility] MOHS MG TQ H/N/H/F/G EA ADDL STAG, ID REPR CMPL WND HEAD,FAC,HAND 2.6-7.5 (05/02/2025 1:54 PM CDT) Luisa Beckford MD - 05/02/2025 1:54 PM CDT Luisa Turcios MD 05/03/2025 7:26 PM Mohs Micrographic Surgery Operative Note Procedure: Mohs micrographic surgery Date of service: 05/02/2025 Location: right max Preop diagnosis: Squamous cell carcinoma in situ Postop diagnosis: Squamous cell carcinoma in situ Mohs AUC score: 7 Number of stages: 2 Preop size: 0.5x0.5 cm Postop size: 1.2x1.3 cm Depth of final defect: adipose Previous dermpath accession #: [id number] Repair type: complex Mohs accession #: [id number] Surgeon and Pathologist: Luisa Turcios MD served as both surgeon and pathologist. No other physician was involved in the cancer removal or pathology interpretation. Assistants: N/A Indications for Mohs Surgery Removal of the patient's tumor is complicated by the following clinical features: Clinical area critical for tissue conservation (Area M: cheeks, forehead, scalp, neck, jawline, pretibial surface). Based on my medical judgement, Mohs surgery is the most appropriate treatment for this cancer compared to other treatments. I discussed alternative treatments to Mohs surgery and specifically discussed the risks and benefits of curettage, excision with permanent sections, and foregoing treatment. The rationale for Mohs was explained to the patient and consent was obtained. The risks, benefits and alternatives to therapy were discussed in detail. Specifically, the risks of infection, scarring, bleeding, prolonged wound healing, incomplete removal, allergy to anesthesia, nerve injury and recurrence were addressed. Prior to the procedure, the treatment site was clearly identified and confirmed by the patient. All components of [place] Protocol/PAUSE Rule completed. STAGE I: The patient was placed on the operating table. The cancer was identified and outlined. The entire surgical field was prepped with hibiclens. The surgical site was anesthetized using Lidocaine 1% with epinephrine 1:100,000 buffered with sodium bicarbonate 8.4% in a 1:10 ratio.The area of clinically apparent tumor was debulked with a 2 mm curette. The layer of tissue was then surgically excised using a #15 blade and was then transferred onto a specimen sheet maintaining the orientation of the specimen. Hemostasis was obtained using monopolar electrodesiccation. The wound site was then covered with a dressing while the tissue samples were processed for examination. The specimen was oriented, mapped and divided. Each section was then inked and processed in the Mohs lab using the Mohs protocol and submitted for frozen section. The histopathologic sections were reviewed by the surgeon in conjunction with the reference map. Total blocks: 1 Total slides: 5 Frozen sections were examined by the surgeon and revealed residual tumor. Tumor was indicated in red on the reference map. Cell morphology: full thickness epidermal squamous cell atypia with cellular pleomorphism (SCCis) Pathological pattern: Squamous cell carcinoma in situ Depth of invasion: Epidermis Scar tissue: Not Present Perineural invasion: Not Present Inflammation obscuring possible tumor presence: Not Present STAGE II: The patient was prepped in the same fashion as the first stage. Using a similar technique to that described above, a thin layer of tissue was removed from all areas where tumor was visible on the previous stage. The tissue was again oriented, mapped, dyed, and processed as above. Histopathologic sections were reviewed in conjunction with the reference map. Total blocks: 1 Total slides: 2 Frozen sections were examined by the surgeon and revealed: No additional tumor. Histology: No malignant cells seen in the sections examined. No additional histologic findings appreciated. [facility] CLIA # [id number] [facility] Jewelry Designer: Luisa Turcios MD REPAIR: Complex Primary Surgeon: Luisa Turcios MD Floor Covering Layer: N/A Repair Size: 3.1 cm Sutures: 4-0 monocryl, 5-0 prolene Width of underminin.5 cm Free margin of the nostrils, helical rim, or vermilion lip involved: NO Presence of exposed bone/cartilage/tendon/named neurovascular structure: NO Use of retention sutures: NO Indication for complex repair: Complex repair was performed because inelasticity of skin made closure difficult, to avoid a deforming, depressed, and contracted scar, to minimize free margin distortion risk, and to preserve the functional anatomy. The defect was identified and a marking pen was used to plan the repair. The area was infiltrated with Lidocaine 1% with epinephrine 1:100,000 buffered with sodium bicarbonate 8.4% in a 1:10 ratio, prepped with iodine and draped with sterile towels. The wound was debeveled. Extensive undermining was performed to a distance of at least 1.5 cm (defect width perpendicular to closure is 1.2 cm) along one edge of the entire surgical defect. Cones were excised within relaxed skin tension lines on both sides of the defect. Hemostasis was obtained using monopolar electrodesiccation. The dermis and deeper layers of subcutaneous tissue were then approximated using buried vertical mattress sutures. Running percutaneous sutures were carefully placed for maximum eversion and meticulous wound edge approximation. Careful attention was paid to avoid distorting any nearby free margins. The wound was cleansed with saline and ointment was applied along the wound surface. A sterile pressure dressing was applied. Wound care instructions were given verbally and in writing. The patient left the operating suite in stable condition. Patient was informed that additional refinement of the resulting surgical scar may be used as a second stage of this reconstruction. No postoperative medications were prescribed. The patient will follow up in 1 week(s) for suture removal. Dr. Turcios performed the entire surgery, and documentation used to initiate this operative report. I entered the information in our [facility] DocFlowsheet with the information provided by Dr. Turcios on her handwritten, paper format, surgical worksheet, which was then used to initiate the create of this note. Dr. Turcios then reviewed and edited the note as needed to complete the note. Dee Romeo LPN I have reviewed the note, edited it as necessary and performed the entire procedure. Luisa Turcios MD [employer] Demonstrator 05/02/2025 Luisa Turcios MD PROCEDURE/MINOR SURGICAL ORDER KAY Final Result * DERMATOPATHOLOGY (03/28/2025 12:00 AM CDT) Case Report Dermatopathology Report Case: [id number] Authorizing Provider: Loy Perez MD Collected: 03/28/2025 12:00 AM Ordering Location: [facility] - Received: 04/02/2025 07:55 AM DermPath Lab Pathologist: Erika Mohan MD Specimen: Skin, right max 5:37 PM CDT DERMATOPATHOLOGY LABORATORY Final Diagnosis Specimen A. SKIN, right max: SQUAMOUS CELL CARCINOMA IN SITU, PRESENT AT THE BASE OF THE SPECIMEN (D04.39) (see microscopic description and comment) 5:37 PM CDT DERMATOPATHOLOGY LABORATORY at 1737 CDT Clinical History R/O SCC 5:37 PM CDT DERMATOPATHOLOGY LABORATORY Gross Description Specimen A: Received is one formalin filled container labeled with the patient's name and designated right max. The specimen consists of a shave biopsy measuring 5x4x1 mm. Jar 0. 5:37 PM CDT DERMATOPATHOLOGY LABORATORY Microscopic Description Specimen A. SKIN, right max: The epidermis shows parakeratosis, full thickness disorderly maturation of keratinocytes, mitoses at different levels, and dyskeratotic cells. The lesion extends to the base of the biopsy. Ki-67 immunohistochemical stain reveals a elevated proliferative index throughout the epidermis. Additional deeper sections were obtained and reviewed. COMMENT: An invasive squamous cell carcinoma cannot be ruled out. 5:37 PM CDT DERMATOPATHOLOGY LABORATORY Disclaimer An external and internal positive and negative controls are appropriate for the histochemical, immunohistochemical and immunofluorescence stain(s) in this case (if any), except where stated explicitly. The performance characteristics of the stain(s) cited in this report were developed and its performance characteristic determined by the Dermatopathology Laboratory at [facility], directed by Dr. Edgardo Bynum. These tests need not be, and therefore are not, approved by the [place] Food and Drug Administration. The tests are used for clinical purposes. Billing Codes Specimen Charges Stain Charges 39791 1 20244 1 5 5:37 PM CDT DERMATOPATHOLOGY LABORATORY Embedded Images 5 5:37 PM CDT DERMATOPATHOLOGY LABORATORY Pathology/Cytolog y TISSUE SPECIMEN FROM SKIN / Unknown 03/28/2025 04/02/2025 7:55 AM CDT us Loy Perez MD LAB - PATHOLOGY/CYTOLOGY ORDERAB LES Final Result DERMATOPATHOLOGY LABORATORY [facility] - Department of Dermatology [address], [address] [phone] from Last 3 Months Insurance ANTH Care Teams Silver Designer Relationship Specialty Start Date End Date Jeannine Hollis MD [address] [place] [address] PCP - General Family Medicine 05/02/25
--- OUTSIDE RECORDS SUMMARY | 2025-05-25 13:56 | XMS_ITS | Clinical Summary ---
Author Organization [employer] [facility] Address [address] [place] [address] Care Team Providers Care Hotel Or Motel Cleaning Supervisor Name Role Phone Unavailable Primary Care Provider [...] on file Legal Sex Female 4:30 AM RAGS LABORER Gender Identity Not on file Sexual Orientation [...] 04/26/2019, Additional history exists INFLUENZA VACCINE (#1) 2025 RSV VACCINE (60+ or ) (1 - 1-dose 75+ series) 12/23/2038
--- OUTSIDE RECORDS SUMMARY | 2025-05-25 13:56 | XMS_ITS | Encounter Summary ---
Author Organization [facility] Address [address] [facility] [place] [address] Care Team Providers Care Flux Plant Operator Name Role Phone Jeannine Hollis MD Primary Care Provider [phone] Encounter Details Date Type Department Care Team (Late Contact Info) Description 04/02/2025 Lab Requisition [facility] Derm[facility] Lab [address] [place] [address] Loy Perez MD [address] [place], [place] [phone] Social History Tobacco Use Types Packs/Day Years Used Date Smoking Tobacco: Never Assessed Comments Unknown Sex and Gender Information Value Date Recorded Sex Assigned at Not on file Legal Sex Female 7:42 AM CDT Gender Identity Not on file Sexual Orientation Not on file documented as of this encounter Plan of Treatment Upcoming Encounters Date Type Department Care Team (Late Contact Info) Description 06/06/2025 10:00 AM CDT Clinical Support [facility] - Dermatology [address] [place] [address] Luisa Turcios MD [address] [facility] 3L [place] [address] documented as of this encounter Procedures Procedure Name Priority Date/Time Associated Diagnosis Comments DERMATOPATHOLOGY Routine 03/28/2025 12:0 0 AM CDT documented in this encounter Results * DERMATOPATHOLOGY (03/28/2025 12:00 AM CDT) Case Report Dermatopathology Report Case: [id number] Authorizing Provider: Loy Perez MD Collected: 03/28/2025 12:00 AM Ordering Location: [facility] - Received: 04/02/2025 07:55 AM DermPath [...] characteristic determined by the Dermatopathology Laboratory at [facility], directed by Dr. Edgardo Bynum. These tests need not be, and therefore are not, approved by the [place] Food and Drug Administration. The tests are used for clinical purposes. Billing Codes Specimen Charges Stain Charges 03063 1 10335 1 5:37 PM CDT DERMATOPATHOLOGY LABORATORY Embedded Images 5:37 PM CDT DERMATOPATHOLOGY LABORATORY Pathology/Cytolog y TISSUE SPECIMEN FROM SKIN / Unknown 03/28/2025 04/02/2025 7:55 AM CDT Loy Perez MD LAB - PATHOLOGY/CYTOLOGY ORDERAB LES Final Result DERMATOPATHOLOGY LABORATORY [facility] - Department of Dermatology [facility] Medicine [address] [place] [address], [address] [phone] documented in this encounter Visit Diagnoses Not on filedocumented in this encounter Care Teams Flux Plant Operator Relationship Specialty Start Date End Date Jeannine Hollis MD [address] [place] [address] PCP - General Family Medicine 05/02/25 documented as of this encounter
--- OUTSIDE RECORDS SUMMARY | 2025-05-25 13:56 | XMS_ITS | Clinical Summary ---
Author Organization [facility] Address [address] [place] [address] Care Team Providers Care Art Glass Setter Name Role Phone Jeannine Hollis MD Primary Care Provider [phone] Allergies Active Allergy Reactions Criticality Noted Date Comments Amoxicillin Unknown 09/29/2022 Medications albuterol HFA (PROVENTIL HFA,VENTOLIN HFA,PROAIR HFA) 90 mcg/actuation inhaler INHALE 1 PUFF BY MOUTH EVERY 4 HOURS NEEDED FOR SHORTNESS OF BREATH AND FOR WHEEZING 2 Active vquchnsj-wef-um rrous fumarate (Multi Vitamin) 9 mg iron/15 [...] on file Legal Sex Female 11:47 AM RETAIL PHARMACIST Gender Identity Not on file Sexual Orientation Not on file Obstetrics History Last Filed Vital Signs Vital Sign Reading Time Taken Comments Blood Pressure 114/72 11/10/2022 8:36 AM RETAIL PHARMACIST Pulse 60 11/10/2022 8:36 AM RETAIL PHARMACIST Temperature - - Respiratory Rate - - Oxygen Saturation 97% 11/10/2022 8:36 AM RETAIL PHARMACIST Inhaled Oxygen Concentration - - Weight 75.3 kg (166 lb) 11/10/2022 8:36 AM RETAIL PHARMACIST Height 170.2 cm (5' 7) 11/10/2022 8:36 AM RETAIL PHARMACIST Body Mass Index 26 11/10/2022 8:36 AM RETAIL PHARMACIST Plan of Treatment Health Maintenance Due Date Last Done Comments Breast Cancer Screening-Mammogram 1965 Cervical Cancer Screening 1965 Colon Cancer Screening-Colonoscopy 1963 Depression Screening 1963 Hepatitis C Screening 1965 DTaP/Tdap/Td Vaccine (1 - Tdap) 12/23/1974 Hepatitis B Screening 12/23/1981 Regular Well Visit/Exam 18-64 12/23/1981 Zoster Vaccine (1 of 2) 12/23/2013 Influenza Vaccine (#1) 2025 Pneumococcal vaccine <65 Aged Out No longer eligible based on patient's age to complete this topic [facility] [place] [facility] ACCESS CHOICE Member Subscriber Plan / Payer (Ef fective 2023-Present) Name:Luna Denise Relation to Subscriber:Self Name:Luna Denise Payer ID:[id number] (NAIC) Group ID:[id number] Type:BC ALLI[employer] Address: [address] [place] [id number] Care Teams Art Glass Setter Relationship Specialty Start Date End Date Jeannine Hollis MD PCP - General Family Medicine 09/24/22
--- OUTSIDE RECORDS SUMMARY | 2025-05-25 13:56 | XMS_ITS | Encounter Summary ---
Author Organization [facility] Address [address] [facility] [place] [address] Care Team Providers Care Advanced Manufacturing Vice President Name Role Phone Jeannine Hollis MD Primary Care Provider [phone] Reason for Visit * Reason Onset Date Comments Wound Care 05/13/2025 Encounter Details Date Type Department Care Team (Late st Contact Info) Description 05/13/2025 Telephone [facility] - Dermatology [address] [place] [address] Luisa Turcios MD [address] [facility] 3 [place] [address] Wound Care Social History Tobacco Use Types Packs/Day Years Used Date Smoking Tobacco: Never Smokeless Tobacco: Never Comments Unknown Sex and Gender Information Value Date Recorded Sex Assigned at Not on file Legal Sex Female 7:42 AM CDT Gender Identity Not on file Sexual Orientation Not on file documented as of this encounter Miscellaneous Notes * Telephone Encounter - Luisa Turcios MD - 05/15/2025 2:41 PM CDT Please see if the patient can come to the [facility] tomorrow 05/16/25. Luisa Turcios MD * Telephone Encounter - Rochelle Finn - 05/15/2025 1:59 PM CDT Patient states the top of the excision right underneath her eye it look like a white bubble patientstates everyday its getting bigger. Patient states there is something that look like a piece of string that is purple * Telephone Encounter - Rochelle Finn - 05/13/2025 9:56 AM CDT Patient stated ]the site seems to be more puffy than before. Patient is using scar cream but statesthe site is very hard and and white. Patient will like to schedule an appointment for a wound check. documented in this encounter Plan of Treatment Upcoming Encounters Date Type Department Care Team (Late st Contact Info) Description 06/06/2025 10:00 AM CDT Clinical Support [facility] - Dermatology [address] [place] [address], [place] [address] Luisa Turcios MD [address] [place] [address] [address] [place] [address] documented as of this encounter Visit Diagnoses Not on filedocumented in this encounter Care Teams Advanced Manufacturing Vice President Relationship Specialty Start Date End Date Jeannine Hollis MD [address] [place] [address] PCP - General Family Medicine 05/02/25 documented as of this encounter
[2025-05-25 14:02] VITALS: BP 108/69; PULSE 53; RESP 18; TEMP 36.6; O2SAT 100
--- NOTE | 2025-05-25 14:27 | ED.SKABFB ---
HPI - Skin/Abscess/Foreign Bdy General Chief complaint: Skin/Abscess/Foreign Body Stated complaint: rash Source: patient Mode of arrival: ambulatory Limitations: no limitations History of Present Illness HPI narrative: 60-year-old female presents to [facility] with complaints of diffuse erythematous itchy rash on her lower bilateral legs, back and abdomen. Patient reports that she did have skin cancer removed from her right facial cheek 1 month ago. Patient reports that she gets stung by a hornet to her left hand 1 week ago. Patient reports a long history of sensitive skin and does see Dermatology. Patient has been applying triamcinolone ointment and taking Benadryl with little relief. The patient denies new medications soaps or detergents. patient denies shortness of breath, wheezing, fever, body aches, chills, nausea vomiting or diarrhea. MD complaint: rash Onset (ago): day(s) (1) Location: back, LLE and RLE Quality: pruritic Relieving factors: none Exacerbating factors: none Associated symptoms: denies other symptoms Related Data Home Medications ?Medication ?Instructions ?Recorded ?Confirmed ?Last Taken ?Type multivitamin (Daily Multi-Vitamin 1 tablet PO DAILY 08/27/20 02/04/25 01/17/24 History tablet) cholecalciferol (vitamin D3) 10 10 mcg PO DAILY 05/20/22 02/04/25 01/17/24 History mcg (400 unit) capsule collagen, hydrolyzed 1 1 tablet PO DAILY 05/20/22 02/04/25 01/17/24 History gram-ascorbate calcium 10 mg tablet loratadine 10 mg tablet (Claritin) 10 mg PO DAILY 01/24/24 02/04/25 01/23/24 21:00 History Allergies Allergy/AdvReac Type Severity Reaction Status Date / Time midazolam Allergy Severe RASH, Verified 05/25/25 14:08 AND HARD TO BREATH Review of Systems Constitutional: Constitutional: Denies chills, Denies fatigue, Denies fever(s) and Denies weakness ENT: Denies vertigo and Denies dizziness Respiratory: Respiratory: Denies cough, Denies dyspnea and Denies wheezing Gastrointestinal: Gastrointestinal: Denies diarrhea, Denies nausea and Denies vomiting Musculoskeletal: Musculoskeletal: Denies arthralgias and Denies joint swelling Integumentary/Breasts: Skin/Breast: Reports pruritus, Denies erythema, Reports rash and Denies skin ulcer Neurologic: Denies dizziness, Denies syncope and Denies headache(s) PMFSH Past Medical History Medical History Hypothyroidism Vitamin D deficiency Degenerative tear of left medial meniscus Alopecia Bradycardia Surgical History Surgical History History of knee replacement (~01/24/24) Hx of tonsillectomy History of (~2001) History of arthroscopy of left knee (~2017) History of elbow surgery (~1995) Family History Family History Mother Patient's mother is , Onset Age: 87 Father Patient's father is , Onset Age: 89 Mother Family history of arthritis Social History Social History Smoking status: Never smoker Second hand tobacco smoke exposure: No Additional smoking assessment comments: DENIES ANY FORM OF TOBACCO USE Alcohol intake: never Drinks per week: 2 Substance use: never Do You Feel Safe in your Home?: Yes Lack of Transportation: No Lack of Food: Never True Current Housing: I Have Housing Concerned About Future Housing: No Difficulty Paying Gas/Electric Bills: No Difficulty Paying for Meds: No Currently Unemployed: No Education: Decline to Answer Difficulty w/ Childcare or Family Care: No Living arrangements: with family Spiritual care concerns: No Comments At time of signature, I agree with nursing past medical, surgical, social and family history. There is no relevant family history pertinent to the presenting complaint. Exam Const: General: healthy appearing and no acute distress Nutritional Appearance: well nourished Orientation/consciousness: patient oriented x3 Limitations: no limitations HENMT: Head: normal to inspection Eyes: Conjunctivae: conjunctivae normal Neck: Neck: normal visual inspection Resp: Effort & Inspection: normal respiratory effort and not labored Auscultation: clear to auscultation bilaterally, no crackles, no rales, no rhonchi and no wheezes Cardio: Rate: regular rate Rhythm: regular rhythm Heart sounds: no murmurs Skin: General skin exam: normal color Wounds: no wounds Other: There is diffuse erythematous macular papular rash to bilateral legs, abdomen and back. No vesicles noted. there is some mild swelling erythema noted to left hand from hornet sting one week ago Neuro: General: patient oriented x3 and moves all extremities Speech: normal speech Gait exam (Neuro): Normal gait present Psych: Affect: normal affect Attitude: cooperative Course Course Level of Care: Express Care Visit Vital Signs Vital signs: Vital Signs Temperature 36.6 C 05/25/25 14:02 Pulse Rate 53 L 05/25/25 14:02 Respiratory Rate 18 05/25/25 14:02 Blood Pressure 108/69 05/25/25 14:02 Pulse Oximetry 100 05/25/25 14:02 Oxygen Delivery Room Air 05/25/25 14:02 Temperature 36.6 C 05/25/25 14:02 Pulse Rate 53 L 05/25/25 14:02 Respiratory Rate 18 05/25/25 14:02 Blood Pressure 108/69 05/25/25 14:02 Pulse Oximetry 100 05/25/25 14:02 Oxygen Delivery Room Air 05/25/25 14:02 MDM - Skin/Abscess/Foreign Bdy MDM Narrative Medical decision making narrative: patient agrees to follow-up with Dermatology if symptoms not improved. Instructed patient to take Medrol dose pack as prescribed. educated patient to proceed to the emergency room if symptoms worsen Differential Diagnosis Differential diagnosis: Likely abscess of skin or subcutaneous tissue and urticaria Critical Care Time Critical Care Time Critical Care Time: No Discharge Plan Discharge Clinical Impression: Rash Patient Disposition: Home Condition: Stable Instructions: Acute Rash (ED) Additional Instructions: Take [id number]-ylc-cidcick Benadryl as needed for itching. Take Medrol Dosepak as prescribed. Follow-up with your manager industrial if symptoms do not improve Patient Language: Venezuelan Prescriptions: New methylprednisolone [Medrol (Brijesh)] 4 mg tablets,dose pack See Rx Instructions .ROUTE .COMPLEX Qty: 21 0RF Rx Instructions: orally per package directions No Action multivitamin [Daily Multi-Vitamin] Tablet 1 tablet PO DAILY collagen,hydrolyz-ascorbate Ca 1 gram- 10 mg tablet 1 tablet PO DAILY cholecalciferol (vitamin D3) 10 mcg (400 unit) capsule 10 mcg PO DAILY loratadine [Claritin] 10 mg Tablet 10 mg PO DAILY Follow-up/Referrals: Jeannine Hollis MD [Primary Care Provider, [facility]] Time of Disposition: 14:36
== END 2025-05-25 14:40 | disposition home or self-care (01) ==
PROVIDERS: Emergency Provider Nurse Practitioner Family; PCP Family Medicine
DX: R21 Rash and other nonspecific skin eruption (principal); E03.9 Hypothyroidism, unspecified; E55.9 Vitamin D deficiency, unspecified; L65.9 Nonscarring hair loss, unspecified
CPT/HCPCS: 99213; G0463

== ENCOUNTER 2025-06-13 10:30 | Outpatient (CLI) | payer BC, SELFPAY ==
--- NOTE | ~2025-06-13 | MM_ITS ---
EXAMINATION: MM screening arnaud BI w alex HISTORY: Screening TECHNIQUE: Craniocaudal and mediolateral oblique 3-D tomosynthesis images were obtained and synthetic 2-D images were generated. CAD analysis was submitted and interpreted. COMPARISON: 06/08/2024 BREAST PARENCHYMAL COMPOSITION: There are scattered areas of fibroglandular density. FINDINGS: There is no evidence of suspicious mass, calcification, or architectural distortion to suggest malignancy. There has been no suspicious interval change. IMPRESSION: 1. No mammographic evidence of malignancy. Recommend routine screening mammography in one year. BI-RADS Category 2: Benign finding(s) Reviewed, dictated and finalized at location Q. IMPRESSION: 1. No mammographic evidence of malignancy. Recommend routine screening mammogra phy in one year. BI-RADS Category 2: Benign finding(s)
--- OUTSIDE RECORDS SUMMARY | 2025-06-13 11:10 | XMS_ITS | Clinical Summary ---
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
--- OUTSIDE RECORDS SUMMARY | 2025-06-13 11:10 | XMS_ITS | Encounter Summary ---
Author Organization [facility] Address [address] [place] [address] Care Team Providers Care Supervisor Screen Making Name Role Phone Jeannine Hollis MD Primary Care Provider [phone] Encounter Details Date Type Department Care Team (Late Contact Info) Description 04/02/2025 Lab Requisition [facility] - DermPath Lab [address] [place] [address] Loy Perez MD [address] [place] [address] Social History Tobacco Use Types Packs/Day Years Used Date Smoking Tobacco: Never Assessed Comments Unknown Sex and Gender Information Value Date Recorded Sex Assigned at Not on file Legal Sex Female 7:42 AM CDT Gender Identity Not on file Sexual Orientation Not on file documented as of this encounter Plan of Treatment Upcoming Encounters Date Type Department Care Team (Late Contact Info) Description 06/20/2025 8:00 AM CDT Clinical Support [facility] - Dermatology [address] [place] [address] documented as of this encounter Procedures Procedure Name Priority Date/Time Associated Diagnosis Comments DERMATOPATHOLOGY Routine 03/28/2025 12:0 0 AM CDT documented in this encounter Results * DERMATOPATHOLOGY (03/28/2025 12:00 AM CDT) Case Report Dermatopathology Report Case: [id number] Authorizing Provider: Loy Perez MD Collected: 03/28/2025 12:00 AM Ordering Location: [facility] - Received: 04/02/2025 07:55 AM [...] purposes. Billing Codes Specimen Charges Stain Charges 07547 1 [id number] 1 5:37 PM CDT DERMATOPATHOLOGY LABORATORY Embedded Images 5:37 PM CDT DERMATOPATHOLOGY LABORATORY Pathology/Cytolog y TISSUE SPECIMEN FROM SKIN / Unknown 03/28/2025 04/02/2025 7:55 AM CDT us Loy Perez MD LAB - PATHOLOGY/CYTOLOGY ORDERAB LES Final Result DERMATOPATHOLOGY LABORATORY [facility] - Department of Dermatology [facility] Medicine [address] [place] [address], [address] [phone] documented in this encounter Visit Diagnoses Not on filedocumented in this encounter Care Teams Supervisor Screen Making Relationship Specialty Start Date End Date Jeannine Hollis MD [address] [place] [address] PCP - General Family Medicine 05/02/25 documented as of this encounter
--- OUTSIDE RECORDS SUMMARY | 2025-06-13 11:10 | XMS_ITS | Encounter Summary ---
Author Organization [facility] Address [address] [place] [address] Care Team Providers Care Grass Farm Laborer Name Role Phone Jeannine Hollis MD Primary Care Provider [phone] Reason for Visit * Reason Onset Date Comments Wound Care 05/13/2025 Encounter Details Date Type Department Care Team (Late st Contact Info) Description 05/13/2025 Telephone [facility] - Dermatology [address] [place] [address] Luisa Turcios MD [address] [facility] [address] [place] [address] Wound Care Social History Tobacco Use Types [...] if the patient can come to the [facility] tomorrow 05/16/25. Luisa Turcios MD * Telephone [...] Care Team (Late st Contact Info) Description 06/20/2025 8:00 AM CDT Clinical Support [facility] - Dermatology [address] [place] [address] [place] [address] documented as of this encounter Visit Diagnoses Not on filedocumented in this encounter Care Teams Grass Farm Laborer Relationship Specialty Start Date End Date Jeannine Hollis MD [address] [place] [address] PCP - General Family Medicine 05/02/25 documented as of this encounter
--- OUTSIDE RECORDS SUMMARY | 2025-06-13 11:10 | XMS_ITS | Clinical Summary ---
Author Organization [facility] Address [address] [place] [address] Care Team Providers Care Green Meat Packer Name Role Phone Jeannine Hollis MD Primary Care Provider [phone] Source Comments [facility],non-owned Affiliates and Associated Physician Practices is amultiple site organization consisting of ambulatory clinics and hospital sitesin [place], [place], [place] and [place]. This disclosure is being madepursuant to the Care Everywhere program and may not contain all information available regarding this patient. Last updated 18.[facility] [employer] Allergies Active Allergy Reactions Criticality Noted Date [...] 05/21/20 25 Pain in left elbow 05/21/2025 Primary osteoarthritis of knees, bilateral 05/21 Right knee pain 05/21/2025 Shortness of breath 05/21/2025 Orthopedic aftercare for joint replacement 05/21 Bradycardia by electrocardiography 09/29/2022 Resolved Problems Problem Noted Date Diagnosed Date Resolved Date Pharyngitis 05/21/2025 06/04/2025 Upper respiratory infection 05/21/2025 06/04/2025 Encounters Date Type Department Care Team Description 06/06/2025 10:00 AM CDT Clinical Support [facility] - Dermatology [address] [place] [phone] Luisa Turcios MD Scar ; Personal history of skin cancer 06/06/2025 Travel 05/21/2025 2:50 PM CDT Office Visit [facility] - Dermatology [facility] [address] [place] [address] Personal history of skin cancer (Primary Dx) 05/21/2025 Travel 05/13/2025 Telephone [facility] - Dermatology [facility] [address] [place] [address] Luisa Turcios MD Wound Care 05/09/2025 8:15 AM CDT Clinical Support [facility] - Dermatology [address] [place] [phone] Personal history of skin cancer 05/09/2025 Travel 05/02/2025 9:15 AM CDT Procedure visit [facility] - Dermatology [address] [place] [phone] Luisa Turcios MD 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 05/02/2025 Travel 05/01/2025 Orders Only [facility] - Dermatology [facility] [address] [place] [address] Dee Romeo LPN 04/24/2025 Telephone [facility] - Dermatology [facility] [address] [place] [address] Luisa Turcios MD Appointment 04/02/2025 Lab Requisition [facility] - DermPath Lab [address] [place] [address] Loy Perez MD from Last 3 Months [...] Description 06/20/2025 8:00 AM CDT Clinical Support [facility] - Dermatology [address] [place] [phone] Health Maintenance Due Date Last Done Comments [...] 12/23/2013 ZOSTER VACCINE (1 of 2) 12/23/2013 DEPRESSION SCREENING 09/26/2024 PAP SMEAR 05/17/2025 05/17/2022 COVID-19 VACCINE (3 - 2024-2 6 season) 2025 05/23/2021, 04/27/2021 INFLUENZA VACCINE (#1) 2025 Respiratory Syncytial Virus [...] Procedure Name Priority Date/Time Associated Diagnosis Comments IN REPR CMPL WND HEAD,FAC,HAND 2.6-7.5 Routine 05/02/2025 1:54 PM CDT 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 IN [facility] MOHS MG TQ H/N/H/F/G EA ADDL STAG Routine 05/02/2025 1:54 PM CDT 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 All components of [place] Protocol/PAUSE Rule completed. STAGE I: The patient [...] sections examined. No additional histologic findings appreciated. [facility] CLIA # [id number] [facility] Sl[facility] Grinder: Luisa Turcios MD REPAIR: Complex Primary Surgeon: Luisa Turcios MD Carton Stamper: N/A Repair Size: 3.1 cm Sutures: 4-0 [...] report. I entered the information in our Epic DocFlowsheet with the information provided by Dr. Turcios on her handwritten, paper format, surgical worksheet, which was then used to initiate the create of this note. Dr. Turcios then reviewed and edited the note as needed to complete the note. Dee Romeo LPN I have reviewed the note, edited it as necessary and performed the entire procedure. Luisa Turcios MD Corrosion Technician 05/02/2025 Luisa Turcios MD PROCEDURE/MINOR SURGICAL ORDER KAY Final Result * DERMATOPATHOLOGY (03/28/2025 12:00 AM CDT) Case Report Dermatopathology Report Case: [id number] Authorizing Provider: Loy Perez MD Collected: 03/28/2025 12:00 AM Ordering Location: [facility] - Received: 04/02/2025 07:55 AM [...] determined by the Dermatopathology Laboratory at [facility], directed by Dr. Edgardo Bynum. These tests need not be, and therefore are not, approved by the [place] Food and Drug Administration. The tests are used for clinical purposes. Billing Codes Specimen Charges Stain Charges 20396 1 [id number] 1 5 5:37 PM CDT DERMATOPATHOLOGY LABORATORY Embedded Images 5 5:37 PM CDT DERMATOPATHOLOGY LABORATORY Pathology/Cytolog y TISSUE SPECIMEN FROM SKIN / Unknown 03/28/2025 04/02/2025 7:55 AM CDT Loy Perez MD LAB - PATHOLOGY/CYTOLOGY ORDERAB LES Final Result Performing Organization Address City/State/[facility] Co de Phone Number DERMATOPATHOLOGY LABORATORY [facility] - Department of Dermatology [facility] Medicine [address] [place] [address], [address] [phone] from Last 3 Months Insurance ANTH Care Teams Green Meat Packer Relationship Specialty Start Date End Date Jeannine Hollis MD [address] [place] [address] PCP - General Family Medicine 05/02/25
--- OUTSIDE RECORDS SUMMARY | 2025-06-13 11:10 | XMS_ITS | Clinical Summary ---
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 Gender Identity Not on file Sexual Orientation Not on file Obstetrics History Last Filed Vital Signs Vital Sign Reading Time Taken Comments Blood Pressure 114/72 11/10/2022 8:36 AM SILVER BUFFER Pulse 60 11/10/2022 8:36 AM SILVER BUFFER Temperature - - Respiratory Rate - - Oxygen Saturation 97% 11/10/2022 8:36 AM SILVER BUFFER Inhaled Oxygen Concentration - - Weight 75.3 kg (166 lb) 11/10/2022 8:36 AM SILVER BUFFER Height 170.2 cm (5' 7) 11/10/2022 8:36 AM SILVER BUFFER Body Mass Index 26 11/10/2022 8:36 AM SILVER BUFFER Plan of Treatment Health Maintenance Due Date [...] patient's age to complete this topic [facility] [employer] [facility] ACCESS CHO[facility] Member Subscriber Plan / Payer (Ef fective 2023-Present) Name:Luna Denise Relation to Subscriber:Self Name:Luna Denise Payer ID:[id number] (NAIC) Group ID:[id number] Type:[employer] Address: [address] [place] [id number] Care Teams Guest Services Director Relationship Specialty Start Date End Date Jeannnie Hollis MD PCP - General Family Medicine 09/24/22
== END 2025-06-13 10:31 | disposition home or self-care (01) ==
LOC: ANHFOHIMG 10:32
PROVIDERS: PCP Family Medicine; Visit Provider Family Medicine
DX: Z12.31 Encounter for screening mammogram for malignant neoplasm of breast (principal)
CPT/HCPCS: 77063; 77067

== ENCOUNTER 2025-07-10 08:03 | Outpatient (CLI) | payer BC, SELFPAY ==
--- OUTSIDE RECORDS SUMMARY | 2025-07-10 08:15 | XMS_ITS | Clinical Summary ---
Author Organization [facility] Address [address] [place] [address] Care Team Providers Care Retention Manager Name Role Phone Jeannine Hollis MD Primary Care Provider [phone] Source Comments [facility],non-owned Affiliates and Associated Physician Practices is amultiple site organization consisting of ambulatory clinics and hospital sitesin [place], [place]. This disclosure is being madepursuant to the Care Everywhere program and may not contain all information available regarding this patient. Last updated [facility] [employer] Allergies Active Allergy Reactions Criticality Noted Date [...] Description 06/06/2025 10:00 AM CDT Clinical Support [facility] - Dermatology [address] [place] [phone] Luisa Turcios MD Scar ; Personal history of skin cancer 06/06/2025 Travel 05/21/2025 2:50 PM CDT Office Visit [facility] - Dermatology [facility] [address], [facility] [address] [place] [address] Personal history of skin cancer (Primary Dx) 05/21/2025 Travel 05/13/2025 Telephone [facility] - Dermatology [facility] [address], [facility] [address] [place] [address] Luisa Turcios MD Wound Care 05/09/2025 8:15 AM CDT Clinical Support [facility] - Dermatology [address] [place] [phone] Personal history of skin cancer 05/09/2025 Travel 05/02/2025 9:15 AM CDT Procedure visit [facility]ician [facility] - Dermatology [address] [place] [phone] Luisa Turcios MD 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 05/02/2025 Travel 05/01/2025 Orders Only [facility] - Dermatology [facility] [address], [address] [phone] Dee Romeo LPN 04/24/2025 Telephone [facility] - Dermatology [facility] [address], [facility] [address] [place] [address] Luisa Turcios MD Appointment from Last 3 Months Social History Tobacco [...] Upcoming Encounters Date Type Department Care Team ([facility] Contact Info) Description 07/11/2025 8:00 AM CDT Office Visit [facility] - Dermatology [address] [place] [address] Health Maintenance Due Date Last Done Comments [...] Procedure Name Priority Date/Time Associated Diagnosis Comments GA REPR CMPL WND HEAD,FAC,HAND 2.6-7.5 Routine 05/02/2025 1:54 PM CDT 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 [facility] MOHS MG TQ H/N/H/F/G EA ADDL STAG Routine 05/02/2025 1:54 PM CDT 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 All components of [place] Protocol/PAUSE Rule completed. STAGE I: The patient [...] sections examined. No additional histologic findings appreciated. [facility] CLIA # [id number] [facility] Gas Load Dispatcher: Luisa Turcios MD REPAIR: Complex Primary Surgeon: Luisa Turcios MD Boat Loader: N/A Repair Size: 3.1 cm Sutures: 4-0 [...] report. I entered the information in our [employer] DocFlowsheet with the information provided by Dr. Turcios on her handwritten, paper format, surgical worksheet, which was then used to initiate the create of this note. Dr. Turcios then reviewed and edited the note as needed to complete the note. Dee M Romeo, R D INTERN I have reviewed the note, edited it as necessary and performed the entire procedure. Luisa Turcios MD Offset Press Operator 05/02/2025 Luisa Turcios MD PROCEDURE/MINOR SURGICAL ORDER KAY Final Result from Last 3 Months Insurance ANTH Care Teams Retention Manager Relationship Specialty Start Date End Date Jeannine Hollis MD [address] [place] [address] PCP - General Family Medicine 05/02/25
--- OUTSIDE RECORDS SUMMARY | 2025-07-10 08:15 | XMS_ITS | Clinical Summary ---
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
--- OUTSIDE RECORDS SUMMARY | 2025-07-10 08:15 | XMS_ITS | Encounter Summary ---
Author Organization [facility] Address [address] [facility] [place] [address] Care Team Providers Care Resident Medical Officer Name Role Phone Jeannine Hollis MD Primary Care Provider [phone] Encounter Details Date Type Department Care Team (Late Contact Info) Description 04/02/2025 Lab Requisition [facility] - DermPath Lab [address] [place] [address] Loy Perez MD [address] [place] [address] Social History Tobacco Use Types [...] Department Care Team (Late Contact Info) Description 07/11/2025 8:00 AM CDT Office Visit [facility] - Dermatology [address] [place] [address] documented as of this encounter Procedures Procedure Name Priority Date/Time Associated Diagnosis Comments DERMATOPATHOLOGY Routine 03/28/2025 12:0 0 AM CDT documented in this encounter Results * DERMATOPATHOLOGY (03/28/2025 12:00 AM CDT) Case Report Dermatopathology Report Case: [id number] Authorizing Provider: Loy Perez MD Collected: 03/28/2025 12:00 AM Ordering Location: [facility] - Received: 04/02/2025 07:55 [...] characteristic determined by the Dermatopathology Laboratory at [facility], directed by Dr. Edgardo Bynum. These tests need not be, and therefore are not, approved by the [place] Food and Drug Administration. The tests are used for clinical purposes. Billing Codes Specimen Charges Stain Charges 37973 1 26362 1 5:37 PM CDT DERMATOPATHOLOGY LABORATORY Embedded Images 5:37 PM CDT DERMATOPATHOLOGY LABORATORY Pathology/Cytolog y TISSUE SPECIMEN FROM SKIN / Unknown 03/28/2025 04/02/2025 7:55 AM CDT us Loy Perez MD LAB - PATHOLOGY/CYTOLOGY ORDERAB LES Final Result DERMATOPATHOLOGY LABORATORY [facility] - Department of Dermatology [facility] Medicine [address] [place] [address], [address] [phone] documented in this encounter Visit Diagnoses Not on filedocumented in this encounter Care Teams Resident Medical Officer Relationship Specialty Start Date End Date Jeannine Hlolis MD [address] [place] [address] PCP - General Family Medicine 05/02/25 documented as of this encounter
--- OUTSIDE RECORDS SUMMARY | 2025-07-10 08:15 | XMS_ITS | Data Portability ---
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 Name Role Phone WALLY JUSTIN Primary Care [...] Lab CMP, serum or plasma 2020 021 [facility], [address], [place], [address], 12:15:05 TSH, serum or plasma 2020 021 [facility], [address], [place], [address], 12:15:05 CBC w/ auto diff 2020 021 [facility], [address], [place], [address], 1 12:15:05 HbA1c (hemoglobin A1c), blood 2020 021 [facility], [address], [place], [address], 1 12:15:05 lipid panel, serum 2020 021 [facility], [address], [place], [address], 1 12:15:06 vitamin D, 1,25-dihydr oxy, serum [address], [address], [address], [place], [address], 1 17:09:02 TSH, serum or plasma 2019 020 [facility], [address], [address], [place], [address], 0 11:22:21 thyroglobul in Ab, serum 2019 020 [facility], [address], [place], [address], 0 10:53:44 T3, free, serum or plasma 2019 020 [facility], [address], [place], [address], 0 10:53:44 T4, free, serum 2019 020 [facility], [address], [place], [address], 0 10:53:44 thyroid peroxidase (tpo) Ab, serum 2019 [facility], [address], [address], [place], [address], 0 10:53:44 T3, total, serum 2019 [facility], [address], [address], [place], [address], 0 23:18:38 T4, free, serum 2019 [facility], [address], [address], [place], [address], 0 23:18:38 TSH, serum or plasma [address] [place] [facility], [address], [address], [place], [address], 0 23:18:38 vitamin D, 25-hydroxy, total, serum 2019 [facility], [address], [address], [place], [address], 0 23:18:38 lipid panel, serum 2019 [facility], [address], [address], [place], [address], 0 23:18:39 CMP, serum or plasma 2019 [facility], [address], [address], [place], [address], 0 23:48:21 CBC w/ auto diff [address] [place] [facility], [address], [address], [place], [address], 0 23:18:39 HbA1c (hemoglobin A1c), blood 2019 020 [facility], [address], [address], [place], [address], 0 23:18:39 Referral None recorded. Procedures None [...] of E6/E7 viral mRNA. Resul ts christa d be corre lated with patie nt prese ntati on, histo ry, cervi jose e cytol ogy and other clini jose e and labor atory findi ngs. See https ://Kid Bunch/s ites/ defau /fi - 22189 _002_ 01.pd f for furth er infor renetta n. Test perfo rmed by [facility], d/b/a [facility], [address], [place] [address] , Vinh Florian ra, , Labor atory Direc tor. HPV High Risk *HPV NOT DETEC [...] and labor atory findi ngs. See https ://Kid Bunch/s ites/ defau lt/fi -0 /AW- 64628 _002_ 01.pd f for furth er infor matio n. Test perfo rmed by [facility], d/b/a [facility], [address], [place] [address] , Vinh Florian ra, , Labor atory Direc tor. End of Repor t Techn ical servi kel provi ded by [facility], d/b/a [facility], [address] [place] [address] Braxton Coats MD, Labor atory Direc tor. Case revie wed and diagn osis rende red at [facility], d/b/a [facility], [address] [place] [address] Braxton Coats MD, Labor atory Dire tor. CONFI DENTI AL Not Available [facility]) [address], [place], [address], 04/25/2020 12:00:53 04/23/20 20 04/25/2020 HPV DNA, high- risk HPV high risk NOT DETECT ED normal Not Available [facility]) [address], [place], [address], 04/25/2020 12:00:53 05/17/20 22 05/17/2022 IMAGE GUIDE D PAP AND HPV REGAR DLESS image guided Pap, HPV regardless of Pap result SEE RESULT S BELOW CASE REPOR T: Cytol ogy Gynec ologi jose e Repor t Case: [id number] Autho rowan garcia Provi royce: Eliezer Candelario Colle cted: 05/17 1501 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 [facility] ([facility]) [address] [place] [address] [facility], [place], [address], 06/03/2020 18:31:55 01/29/20 22 01/27/2022 MAMMO , scree eliot, bilat eral No observ ation record ed. [address] [place] [address], [place], [address], 02/01/2022 20:54:54 02/05/20 22 DEXA, axial skele ton + verte bral fract ure asses sment No observ ation record ed. [email or web address] [facility] [address], [place], [address], 02/11/2022 16:03:57 Result Notes Documentation Provider Name and Address Organization Details Recorded Time General Health Panel, Blood : vit D pending L Khoi [facility] 05/13/2021 13:27:09 Problems Name Problem SNOMED Code Status Onset Date Resolution Date Notes Provider Name and Address Organization Details Recorded Time Screenin g for malignan t neoplasm of cervix Completed 201005/17/2022 Screening for malignant neoplasms of the cervix;Re corded Elsewhere : No Locati on: [facility] So urce: EHR Chron ic: N Practic e ID: 0001 Bill able Time: 10:30:00 AM Linda Lees [facility] 2 09:30:22 Amenorrh ea [id number] Completed 201105/17/2022 Absence of menstruat ion;Recor ded Elsewhere : No Locati on: [facility] So urce: EHR Chron ic: N Practic e ID: 0001 Bill able Time: 09:30:00 AM Linda Lees [facility] 2 09:30:22 Malaise and fatigue 410728177 Completed 201405/17/2022 Fatigue;R ecorded Elsewhere : No Locati on: [facility] So urce: EHR Chron ic: N Practic e ID: 0001 Bill able Time: 09:00:00 AM Linda Lees [facility] 2 09:30:22 Speciali zed medical examinat ion Completed 201405/17/2022 Gynecolog ical Examinati on;Record ed Elsewhere : No Locati on: [facility] So urce: EHR Chron ic: N Practic e ID: 0001 Bill able Time: 09:00:00 AM Linda Lees [facility] 2 09:30:22 Adult health examinat ion Completed 201405/17/2022 Routine general medical examinati on at a health care facility; Practice ID: [id number] Linda Lees [facility] 2 09:30:22 Obesity [id number] Completed 201405/17/2022 Obesity;R ecorded Elsewhere : No Locati on: [facility] So urce: EHR Chron ic: N Practic e ID: 0001 Bill able Time: 09:00:00 AM Linda davenport [facility] 2 09:30:22 Screenin g for malignan t neoplasm of rectum Completed 201505/17/2022 Encounter for screening for malignant neoplasm of rectum;Re corded Elsewhere : No Locati on: [facility] So urce: EHR Chron ic: N Practic e ID: 0001 Bill able Time: 08:30:00 AM Linda Lees [facility] 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 2 09:30:22 Finding of upper limb Completed 201505/17/2022 Localized swelling, mass and lump, upper limb, bilateral ;Practice ID: [id number] Linda Lees [facility] 2 09:30:22 Neoplast ic disease Completed 201605/17/2022 Neoplasm of unsp behavior of bone, soft tissue, and skin;Bud rded Elsewhere : No Locati on: [facility] So urce: EHR Chron ic: N Practic e ID: 0001 Bill able Time: 08:30:00 AM Linda Lees [facility] 2 09:30:22 Finding by site Completed 201605/17/2022 Dermatiti s, unspecifi ed;Record ed Elsewhere : No Locati on: [facility] So urce: EHR Chron ic: N Practic e ID: 0001 Bill able Time: 08:15:00 AM Linda Lees [facility] 2 09:30:22 Micturit ion finding Completed 201605/17/2022 Urinary incontine nce;Recor ded Elsewhere : No Locati on: [facility] So urce: EHR Chron ic: N Practic e ID: 0001 Bill able Time: 08:15:00 AM Linda Lees [facility] 2 09:30:[address] Concept Completed 201705/17/2022 Encntr for general adult medical exam w/o abnormal findings; Recorded Elsewhere : No Locati on: [facility] So urce: EHR Chron ic: N Practic e ID: 0001 Bill able Time: 08:30:00 AM Linda Lees [facility] 2 09:30:22 Problem Notes None recorded. Procedures Surgical History Date Name Laterality Status Provider Name and Address Organization Details Recorded Time 01/28/20 Date of Last Mammogram completed [facility] 05/17/2022 09:43:42 04/23/20 Date of Last Pap Smear completed [facility] 05/17/2022 09:42:13 09/26/19 07 chest wall excision completed [facility] 04/23/2020 10:20:15 Caesarean Section completed [facility] 05/17/2022 09:45:46 procedure on elbow completed [facility] 04/23/2020 10:19:55 refashioning of ingrowing toenail completed [facility] 04/23/2020 10:20:28 procedure on knee completed [facility] 04/23/2020 10:20:35 Imaging Results None recorded. Procedure Notes None recorded. Medical Equipment None Reported. Allergies Allergen ID Allergen Name Allergen Category Reaction Reaction Severity Criticality Documentation Date Start Date Code Code System Note Provider Name and Address Organization Details Recorded Time 1495 amoxicill in medicatio n Not available Not available Not available 04/23/2020 723 RxNorm Lola [place] - [facility] 0 10:17:59 Medications Name Sig [...] Prescrib ed Elsewher e: No Locat ion: [facility] By: gail [email or web address] DateTime : 04/11/20 17 08:15:00 AM Not [...] Prescrib ed Elsewher e: Yes Loca tion: [facility] By: fransisca gaitan DateTime : [...] 100 % powder 2018 active Prescrib oliva Florez e: Yes Loca tion: [facility] By: gail dunbarunter DateTime : 04/03/20 08:30:00 AM Not Available Not Available Not Available Emverm 100 mg chewable tablet 05/17 completed Not Available Not Available Not Available turmeric 100 mg-saman 150 mg-olive 50 mg-oreg 150 mg-capryl capsule Take by oral route. active Not Available Not Available No t Available Vitals Date Recorded Body height Body mass index (BMI) Body weight Systolic And Diastolic Provider Name and Address Organization Details Last Updated DateTime 04/23/2020 2057.4 cm 0.2 kg/m2 50957.59 g 121/73 mm[Hg] [facility] 04/23/2020 11:07:37 Date Recorded Body height Body mass index (BMI) Body weight Systolic And Diastolic Provider Name and Address Organization Details Last Updated DateTime 04/29/2021 168.91 cm 25.3 kg/m2 52950.19 g 112/67 mm[Hg] [facility] 04/29/2021 09:51:58 Date Recorded Body height Body mass index (BMI) Body weight Systolic And Diastolic Provider Name and Address Organization Details Last Updated DateTime 05/08/2020 170.18 cm 24.6 kg/m2 14005 g 109/68 mm[Hg] [facility] 05/08/2020 11:55:21 Date Recorded Body height Body mass index (BMI) Body weight Systolic And Diastolic Provider Name and Address Organization Details Last Updated DateTime 05/17/2022 168.28 cm 25 kg/m2 89822.41 g 126/72 mm[Hg] [facility] 05/17/2022 09:45:17 Social History Question Answer Notes LastModified by Organizat ion Details LastModified Time Tobacco Smoking Status Never Smoker Linda Lees [facility] 05/17/2022 09:45:42 Do You Have An [...] Or The Highest Degree You Have Received? [id number] Information not available 05/17/2022 Do You Use [...] not available 04/29/2021 Are you able to walk independently without assistance or assistive devices? YESWOREST Information not available 04/29/2021 Are you able to care for yourself independently? Yes Information not available 05/17/2022 What is your occupation? retired Information not available 05/17/2022 Do you have difficulty dressing, bathing, grooming, or toileting? No Information not available 05/17/2022 What is your exercise level? Moderate Information not available 05/17/2022 Mental Status Question Answer Note LastModified by Organization D etails LastModified Time Do you feel stressed (tense, restless, nervous, or anxious, or unable to sleep at night)? [id number] Information not available 05/17/2022 Family History Relationship Description Onset Age of this Age Resolved Age Notes LastModified by Organization Details LastModified Time Mother Disorder of thyroid gland [email or web address] Not available 2019 10:18:44 Mother Acute stroke [email or web address] Not avai lable 05/17/2022 09:29:12 Sister Disorder of thyroid gland [email or web address] Not available 2019 10:18:44 Father Acute stroke Not avai lable 05/17/2022 09:29:12 Father Malignant neoplasm of skin [email or web address] Not available 2021 09:29:12 Brother Heart irregularly irregular [email or web address] Not available 2021 09:29:12 Medical History Condition [...] Diagnosis SNOMED-CT Code Diagnosis ICD10 Code Diagnosis IMO Codes Diagnosis Note [id number] Sade Bonilla [facility] [address] [address] 04/23/2020 10:59:04 04/23/2020 12:52:57 Gynecologic examination 66183620 Z01.419 Take Calcium with Vitamin D 12-1500mg daily. Do monthly self breast exams. It is advised to get annual flu shot in the fall and she could obtain at [facility] or [facility] care clinic. If you haven't received [...] call or respond to this email [facility] 119594548 Z00.00 Family Hx thyroid issues. Thinning hair. [facility] Fasting [id number] Sade Bonilla [facility] [address],[facility] [place] [address] 05/08/2020 11:48:37 05/11/2020 15:07:52 Hypothyroidism 67566586 E03.9 We agreed to complete full thyroid [...] counseling and review of plan of care. [id number] Sade Bonilla [facility] [address],[place] [address] 04/29/2021 09:32:47 04/29/2021 10:34:23 Gynecologic examination 60180398 Z01.419 Take Calcium with Vitamin D 12-1500mg daily. Do monthly self breast exams. It is advised to get annual flu shot in the fall and she could obtain at [facility] or [facility] care clinic. If you haven't received [...] issues or concerns Note: Son goes to [facility] for engineerin g Adult heal th examination 108239159 Z00.00 Updated routine labs requested. [id number] Sade Bonilla [facility] [address],[place] [address] 05/17/2022 09:28:58 05/17/2022 10:06:43 Gynecologic examination 16251233 Z01.419 Take Calcium with Vitamin D 12-1500mg daily. Do monthly self breast exams. It is advised to get annual flu shot in the fall and she could obtain at [facility] or [facility] clinic. If you haven't received the [...] 05/15/2022 1 [place] [id number] Claude Denise [id number] Claude Denise Notes Date Note Type Note Provider Name and Address Organization Details Recorded Time 0 text/html Annual GYNReported by PatientHistoryFor history, patient reportsno gynecologic complaints.Genitourinary symptomsFor menstrual cycle, patient reportsnormal menses. For urinary symptoms, patient reportsno hematuriaandno incontinence. For vulva, patient reportsno genital lesion. For vagina, patient reportsnormal vaginal discharge.Breast symptomsFor breast, patient reportsno breast pain,no breast lump, andno nipple discharge.ContraceptionFo r current contraception, patient reportssatisfied with current contraception(postmenopau se).Endocrine symptomsFor sexual complaints, patient reportsno sexual complaints,no pain during intercourse, andnormal libido. For menopausal symptoms, patient reportsno menopausal symptomsandnormal vaginal lubrication.Psychological symptomsFor psychological symptoms, patient reportsno depression,no anxiety, andno pmdd.Preventative measuresFor preventive measures, patient reportsencourage self breast examination,encourage regular exercise,encourage no tobacco use,encourage regular mammograms starting age 40,needs to schedule mammogram, andup to date on colonoscopy screening. Sade Bonilla [facility] [address], [place], [address], [facility] 04/23/2020 12:33:38 0 text/html ROS as noted in the HPI Patient is here to f/u recent abn TSH levels. [facility] [address], [place], [address], [facility] 05/09/2020 11:39:47 1 text/html Annual Stem Maker Post-MenopausalReported by PatientGenitourinary symptomsFor menopausal symptoms, patient reportsno menopausal symptomsandnormal vaginal lubrication. For vaginal bleeding, patient reportshistory of menopause having occurredandno history of post menopausal bleeding. For urinary symptoms, patient reportsno hematuria,no incontinence,no nocturia, andno urinary frequency. For vulva, patient reportsno genital lesionandno vulvar atrophy. For vagina, patient reportsnormal vaginal dischargeandno vaginal atrophy.Breast symptomsFor breast, patient reportsno breast lump,no nipple discharge, andno breast pain.Psychological symptomsFor sexual complaints, patient reportsno sexual complaints. For psychological symptoms, patient reportsno depressionandno anxiety.Preventative measuresFor preventive measures, patient reportsencourage regular mammograms starting age 40,encourage self breast examination,encourage regular exercise,encourage no tobacco use,needs to schedule mammogram,history of recent colonoscopy, andneeds to schedule bone density. Sade Bonilla [facility] [address], [place], [address], [facility] 04/29/2021 10:17:14 2 text/html Annual Stem Maker Post-MenopausalReported by PatientGenitourinary symptomsFor menopausal symptoms, patient reportsno menopausal symptomsandnormal vaginal lubrication. For vaginal bleeding, patient reportshistory of menopause having occurredandno history of post menopausal bleeding. For urinary symptoms, patient reportsno hematuria,no incontinence,no nocturia, andno urinary frequency. For vulva, patient reportsno genital lesionandno vulvar atrophy. For vagina, patient reportsnormal vaginal dischargeandno vaginal atrophy.Breast symptomsFor breast, patient reportsno breast lump,no nipple discharge, andno breast pain.Psychological symptomsFor sexual complaints, patient reportsno sexual complaints. For psychological symptoms, patient reportsno depressionandno anxiety.Preventative measuresFor preventive measures, patient reportsencourage regular mammograms starting age 40,encourage self breast examination,encourage regular exercise,encourage no tobacco use,mammogram performed within the past year, andhistory of recent colonoscopy. Sade Bonilla, [place] [address], [place], [address], [facility] 05/17/2022 10:01:47 OBGyn Episode Ob Episode Information Episode Created Date Number of Fetuses Patient Bloodtype Patient rh Status Prepregnancy Weight lbs Domestic Partner Domestic Partner Phone Father Name Tool Dresser Status 04/23/20 20 1 CLOSED Fetus Data [...]
--- OUTSIDE RECORDS SUMMARY | 2025-07-10 08:15 | XMS_ITS | Encounter Summary ---
Author Organization [facility] Address [address] [place] [address] Care Team Providers Care Cake Inspector Name Role Phone Jeannine Hollis MD Primary Care Provider [phone] Reason for Visit * Reason Onset Date Comments Wound Care 05/13/2025 Encounter Details Date Type Department Care Team (Late st Contact Info) Description 05/13/2025 Telephone [facility] - Dermatology [address], [address] [place] [address] Luisa Turcios MD [address] [facility] [address] [place] [address] Wound Care Social History Tobacco Use Types [...] if the patient can come to the [facility] tomorrow 05/16/25. Luisa Turcios MD * [...] Care Team (Late st Contact Info) Description 07/11/2025 8:00 AM CDT Office Visit [facility] - Dermatology [facility] [facility] [place] [address] documented as of this encounter Visit Diagnoses Not on filedocumented in this encounter Care Teams Cake Inspector Relationship Specialty Start Date End Date Jeannine oHllis MD [address] [place] [address] PCP - General Family Medicine 05/02/25 documented as of this encounter
--- OUTSIDE RECORDS SUMMARY | 2025-07-10 08:15 | XMS_ITS | Clinical Summary ---
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 Gender Identity Not on file Sexual Orientation Not on file Obstetrics History Last Filed Vital Signs Vital Sign Reading Time Taken Comments Blood Pressure 114/72 11/10/2022 8:36 AM DETHISTLER OPERATOR Pulse 60 11/10/2022 8:36 AM DETHISTLER OPERATOR Temperature - - Respiratory Rate - - Oxygen Saturation 97% 11/10/2022 8:36 AM DETHISTLER OPERATOR Inhaled Oxygen Concentration - - Weight 75.3 kg (166 lb) 11/10/2022 8:36 AM DETHISTLER OPERATOR Height 170.2 cm (5' 7) 11/10/2022 8:36 AM DETHISTLER OPERATOR Body Mass Index 26 11/10/2022 8:36 AM DETHISTLER OPERATOR Plan of Treatment Health Maintenance Due Date [...] patient's age to complete this topic Insurance [facility] [employer] [place] [facility] ACCESS CHOICE Member Subscriber Plan / Payer (Ef fective 2023-Present) Name:Luna Denise Relation to Subscriber:Self Name:Luna Denise Payer ID:[id number] (NAIC) Group ID:[id number] Type:BC ALLIANCE Address: [address] [place] [id number] Care Teams Spinning Mule Operator Relationship Specialty Start Date End Date Jeannine Hollis MD PCP - General Family Medicine 09/24/22
[2025-07-10 09:24] LABS: Hematocrit 40.1 % (37.0-47.0); Hemoglobin 13.1 g/dL (12.0-15.0); Immature Granulocyte Percent A 0.3 % (0-0.5); Lymphocytes Absolute Auto 1.54 K/mm3 (0.9-3.2); Mean Corpuscular HGB Conc 32.7 g/dl (32-36); Mean Corpuscular Hemoglobin 31.2 pg (26-34); Mean Corpuscular Volume 95.5 fl (80-100); Nucleated Red Blood Cells Absolute Auto 0.000 K/mm3 (0.0-0.012); Nucleated Red Blood Cells Perc 0.0 % (0.0-0.2); Platelet Count Result 247 k/mm3 (150-375); Red Blood Count 4.20 M/mm3 (4.2-5.4); White Blood Count 7.1 K/mm3 (4.5-10.0)
[2025-07-10 09:57] LABS: Albumin Level 4.5 g/dL (3.5-5.1); Estimated Glomerular Filt Rate > 60; Glucose 84 mg/dL (65-110)
[2025-07-10 10:03] LABS: Hemoglobin A1C 5.4 % (<5.7)
[2025-07-10 10:35] LABS: MRSA (PCR) NOT DETECTED (NOT DETECTE)
== END 2025-07-10 08:04 | disposition home or self-care (01) ==
LOC: ANHSURGERY 08:08
PROVIDERS: PCP Family Medicine; Visit Provider Orthopaedic Surgery
DX: Z01.818 Encounter for other preprocedural examination (principal); M17.12 Unilateral primary osteoarthritis, left knee
CPT/HCPCS: 80307; 82040; 82565; 82947; 83036; 85025; 87641

== ENCOUNTER 2025-07-30 01:03 | Day surgery (SDC) | payer BC, SELFPAY ==
--- OUTSIDE RECORDS SUMMARY | 2006-06-02 02:00 | XMS_ITS | Continuity of Care Document ---
Author Organization [facility] Address [address] [place] [address] Phone Care Team Providers Care Baby Attendant Name Role Phone Marianna Aviles Unavailable Unavailable Advance Directives Directive Yes / No Effective Date File Name No Information Encounters Encounter Description Practice Location Reason(s) For Visit Diagnoses Date Provider Providers Copied on Encounter [facility], [address], [place], [place], [id number], [place] tel:[phone] [facility] [place] No Information Sep-0 7-200 6 Traci Cabral. [address] [facility] [place] , [address], [place], [address], [place]. tel:[phone] Family History Family Member Type Diagnosis Age At Onset No Information Payers Payer name Insurance type Covered democrat ID Authoriza timaureen(s) [facility] CI [id number] Social History Type Description Quantity Date Captured Comments Sex Male Smoking Status No Information Chief Complaint And Reason For Visit No Information Reason For Referral Reason For Referral No Information History Of Present Illness Encounter Date Complaint History Of Prese nt Illness No Information Functional Status Date Functional Assessmen t No Information Instructions Date Instruction Additional Infor mation No Information Assessments Type Assessment Date No Information Patient Care Teams Name Effective Dates (start - stop) Status Members No Information
--- NOTE | 2025-07-10 08:03 | PC.NURSE ---
[facility] has started construction of its new state of the art ER which will open Spring 2026. With this, we anticipate parking may be a challenge for some our surgical patients and families. Parking spaces are limited but are available for all Surgical, obstetrics, and ER patients sharing this lot. If you arrive and find you are having a hard time finding a parking space, please note that we understand the challenges, please drive around the hospital and park near Hospital Entrance 1. When you enter this entrance, you can ask a volunteer to direct or take you back to the surgical waiting area to check in. We appreciate everyone?s understanding of these expected challenges while we build for your future. Report to the Outpatient Waiting Room, entrance under the green pavilion located off [address], at time _6 am on date __07/30/25 . Planned Procedure Time: _7:30 am .? Time changes happen often and if your time is changed the preop area will call you the afternoon before. - You and your visitor will be asked to self-screen and do not enter if you have any COVID symptoms. Please call surgeon if you need to reschedule. - A mask is optional within the hospital at this time. Patients may have clear liquids (water, carbonated beverages, clear teas, apple juice) until 3 hours prior to surgery ( 4:30am) with a maximum of 20 ounces. - No food from midnight until time of surgery and no smoking, or chewing tobacco (or any form of nicotine). No chewing gum, candy or mints. - Take only the following medications with a SIP of water on the morning of surgery: DO NOT STOP ANY OF YOUR OTHER PRESCRIPTION MEDICATIONS PRIOR TO SURGERY EXCEPT THE FOLLOWING Hold all vitamins and supplements for 3 days per anesthesiologist. Medications to discontinue per physician Date to take last dose Please no make-up, nail malaysian, hairspray, perfume, deodorant, or body powder the day of surgery.? No jewelry (including any body piercings) or valuables the day of surgery, leave them at home.? Please take a shower or bath the night before, or the morning of, surgery with an antibacterial soap.? Wear comfortable, loose fitting clothing.? Children are encouraged to wear pajamas. - Jewelry must be removed prior to entering the operating room.? Rings and piercings that are not removed may be cut off. - The hospital will not accept responsibility for valuables.? - Please leave all valuables, including medications, at home the day of surgery. If you are going home after surgery, a licensed hire car driver must drive you home.? - NO public transportation without another adult if you receive anesthesia. - We recommend that an adult stay with you for 24 hours following discharge. - We also recommend that you do not drive, make important decision, drink alcoholic beverages, or take any drugs that were not prescribed by your health care provider for at least 24 hours after your discharge time. For Pediatric surgeries, we recommend two adults accompany the child home. Follow any additional instructions given to you from your surgeon. Telephone instructions given to and asked if any additional questions and then verbalized understanding. Patient advised to call surgeon office or pre surgery nurse liaison [phone] if any additional questions. [facility] has started construction of its new state of the art ER which will open Spring 2026. With this, we anticipate parking may be a challenge for some our surgical patients and families. Parking spaces are limited but are available for all Surgical, obstetrics, and ER patients sharing this lot. If you arrive and find you are having a hard time finding a parking space, please note that we understand the challenges, please drive around the hospital and park near Hospital Entrance 1. When you enter this entrance, you can ask a volunteer to direct or take you back to the surgical waiting area to check in. We appreciate everyone?s understanding of these expected challenges while we build for your future. Report to the Outpatient Waiting Room, entrance under the green pavilion located off [facility], at time on date . Planned Procedure Time: .? Time changes happen often and if your time is changed the preop area will call you the afternoon before. - You and your visitor will be asked to self-screen and do not enter if you have any COVID symptoms. Please call surgeon if you need to reschedule. - A mask is optional within the hospital at this time. Patients may have clear liquids (water, carbonated beverages, clear teas, apple juice) until 3 hours prior to surgery with a maximum of 20 ounces. - No food from midnight until time of surgery and no smoking, or chewing tobacco (or any form of nicotine). No chewing gum, candy or mints. - Infants may have breast milk until 4 hours before surgery, infant formula 6 hours prior to surgery. - Children will be allowed to drink immediately following surgery.? If applicable, please bring a bottle or sippy cup to assist with drinking. Juice, water, soda, and popsicles are readily available.? For infants on formula, please bring formula the day of surgery.? Pacifiers are allowed. Take only the following medications with a SIP of water on the morning of surgery: NONE DO NOT STOP ANY OF YOUR OTHER PRESCRIPTION MEDICATIONS PRIOR TO SURGERY EXCEPT THE FOLLOWING Hold all vitamins and supplements for 3 days per anesthesiologist.LAST DOSE 07/26/25 Medications to discontinue per physician NONE Date to take last dose Please no make-up, nail malaysian, hairspray, perfume, deodorant, or body powder the day of surgery.? No jewelry (including any body piercings) or valuables the day of surgery, leave them at home.? Please take a shower or bath the night before, or the morning of, surgery with an antibacterial soap.? Wear comfortable, loose fitting clothing.? Children are encouraged to wear pajamas. - Jewelry must be removed prior to entering the operating room.? Rings and piercings that are not removed may be cut off. - The hospital will not accept responsibility for valuables.? - Please leave all valuables, including medications, at home the day of surgery. If you are going home after surgery, a licensed hire car driver must drive you home.? - NO public transportation without another adult if you receive anesthesia. - We recommend that an adult stay with you for 24 hours following discharge. - We also recommend that you do not drive, make important decision, drink alcoholic beverages, or take any drugs that were not prescribed by your health care provider for at least 24 hours after your discharge time. For Pediatric surgeries, we recommend two adults accompany the child home. Follow any additional instructions given to you from your surgeon. VERBAL AND WRITTEN instructions given to __PATIENT and asked if any additional questions and then verbalized understanding. Patient advised to call surgeon office or pre surgery nurse liaison [phone] if any additional questions.
[2025-07-10 08:12] VITALS: BMI 26.1
[2025-07-10 08:41] VITALS: BP 116/68; PULSE 56; RESP 18; TEMP 36.6; O2SAT 99
[2025-07-30] VITALS (16 sets, daily range): BP systolic 104–141; BP diastolic 53–79; PULSE 55–73; RESP 12–18; TEMP 35.6–36.6; O2SAT 94–100
--- NOTE | ~2025-07-30 | XR_ITS ---
PROCEDURE(S): Radiography left knee, one to 2 views INDICATION(S): Postop left TKA COMPARISON(S): None. TECHNIQUE: 2 radiographic images were submitted for interpretation. FINDINGS: Bones: There are no fractures seen. There are no destructive lesions or other lesions identified. Joints: There has been total knee arthroplasty. The prosthetic devices have an anatomic alignment. There is air in the soft tissues IMPRESSION: Postop change Reviewed, dictated and finalized at location A. D ANALYST IMPRESSION: Postop change
--- OUTSIDE RECORDS SUMMARY | 2025-07-30 01:06 | XMS_ITS | Clinical Summary ---
Author Organization [facility] Address [address] [place] [address] Care Team Providers Care Inspector Boiler Name Role Phone Jeannine Hollis MD Primary Care Provider [phone] Source Comments [facility],non-owned Affiliates and Associated Physician Practices is amultiple site organization consisting of ambulatory clinics and hospital sitesin [place], [place], [place] and [place]. This disclosure is being madepursuant to the Care Everywhere program and may not contain all information available regarding this patient. Last updated 18.[facility] Jeeves Allergies Active Allergy Reactions Criticality Noted Date [...] Encounters Date Type Department Care Team Description 07/11/2025 8:00 AM CDT Office Visit [facility] - Dermatology [address] [place] [phone] Hypertrophic scar (Primary Dx); Personal history of skin cancer 07/11/2025 Travel 06/06/2025 10:00 AM CDT Clinical Support [facility] [address] [place] [phone] Luisa Turcios MD Scar ; Personal history of skin cancer 06/06/2025 Travel 05/21/2025 2:50 PM CDT Office Visit [facility] - Dermatology [facility] [address] [place] [address] Personal history of skin cancer (Primary Dx) 05/21/2025 Travel 05/13/[address] [facility] - Dermatology [facility] [address] [place] [address] Luisa Turcios MD Wound Care 05/09/2025 8:15 AM CDT Clinical [facility] - Dermatology [address] [place] [phone] Personal history of skin cancer 05/09/2025 Travel 05/02/2025 9:15 AM CDT Procedure 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 [facility] MOHS MG TQ H/N/H/F/G EA ADDL STAG Routine 05/02/2025 1:54 PM CDT 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 All components of Streetman Protocol/PAUSE Rule completed. STAGE I: The patient [...] sections examined. No additional histologic findings appreciated. [facility] Mohs CLIA # [id number] [facility] Glass Enamel Mixer: Luisa Turcios MD REPAIR: Complex Primary Surgeon: Luisa Turcios MD International Flight Attendant: N/A Repair Size: 3.1 cm Sutures: 4-0 [...] report. I entered the information in our coComment DocFlowsheet with the information provided by Dr. Turcios on her handwritten, paper format, surgical worksheet, which was then used to initiate the create of this note. Dr. Turcios then reviewed and edited the note as needed to complete the note. Dee Romeo LPN I have reviewed the note, edited it as necessary and performed the entire procedure. Luisa Turcios MD Hazardous Substances Scientist 05/02/2025 us Luisa Turcios MD PROCEDURE/MINOR SURGICAL ORDER KAY Final Result from Last [address] [place] [address] ANTH Care Teams Inspector Boiler Relationship Specialty Start Date End Date Jeannine Hollis MD [address] [place] [address] PCP - General Family Medicine 05/02/25
--- OUTSIDE RECORDS SUMMARY | 2025-07-30 01:06 | XMS_ITS | Data Portability ---
Author Organization [facility] Address [address] [place] [address] [address] Care Team Providers Care Coordinating Producer Name Role Phone WALLY JUSTIN Primary Care [...] Lab CMP, serum or plasma 2020 021 [facility], [address], [place], [address], 12:15:05 TSH, serum or plasma 2020 021 [facility], [address], [place], [address], 12:15:05 CBC w/ auto diff 2020 021 [facility], [address], [place], [address], 1 12:15:05 HbA1c (hemoglobin A1c), blood 2020 021 [facility], [address], [place], [address], 1 12:15:05 lipid panel, serum 2020 021 [facility], [address], [place], [address], 1 12:15:06 vitamin D, 1,25-dihydr oxy, serum [address], [address], [place], [address], 1 17:09:02 TSH, serum or plasma [address] [facility], [address], [address], [place], [address], 0 11:22:21 thyroglobul in Ab, serum [address] [facility], [address], [place], [address], 0 10:53:44 T3, free, serum or plasma [address] [facility], [address], [place], [address], 0 10:53:44 T4, free, serum [address] [facility], [address], [place], [address], 0 10:53:44 thyroid peroxidase (tpo) Ab, serum 2019 [facility], [address], [address], [place], [address], 0 10:53:44 T3, total, serum 2019 [facility], [address], [address], [place], [address], 0 23:18:38 T4, free, serum 2019 [facility], [address], [address], [place], [address], 0 23:18:38 TSH, serum or plasma [address] [facility] [place], [address], [address], [place], [address], 0 23:18:38 vitamin D, 25-hydroxy, total, serum 2019 [facility], [address], [address], [place], [address], 0 23:18:38 lipid panel, serum 2019 [facility], [address], [address], [place], [address], 0 23:18:39 CMP, serum or plasma 2019 [facility], [address], [address], [place], [address], 0 23:48:21 CBC w/ auto diff [address] [facility], [address], [address], [place], [address], 0 23:18:39 HbA1c (hemoglobin A1c), blood 2019 020 [facility], [address], [address], [place], [address], 0 23:18:39 Referral None recorded. Procedures None [...] and labor atory findi ngs. See https ://iPAYst/s ites/ defau /fi - 44234 _002_ 01.pd f for furth er infor renetta n. Test perfo rmed by [facility], d/b/a [employer] [facility]oup, [address], [place] [address] , Vinh Florian ra, , Labor atory [...] and labor atory findi ngs. See https ://iPAYst/s ites/ defau lt/fi -0 /AW- 82740 _002_ 01.pd f for furth er infor matio n. Test perfo rmed by [facility], d/b/a [facility], [address], [place] [address] , Vinh Florian ra, , Labor atory Direc tor. End of Repor t Techn ical servi kel provi ded by [facility], d/b/a [employer] r[facility], [address] [place] [address] Braxton Coats MD, Labor atory Direc tor. Case revie wed and diagn osis rende red at [facility], d/b/a Path ada, [address] [place] [address] Braxton Coats MD, Labor atory Dire tor. CONFI DENTI AL Not Available [facility]) [address], [place], [address], 04/25/2020 12:00:53 04/23/20 20 04/25/2020 HPV DNA, high- risk HPV high risk NOT DETECT ED normal Not Available [facility]) [address], [place], [address], 04/25/2020 12:00:53 05/17/20 22 05/17/2022 IMAGE GUIDE D PAP AND HPV REGAR DLESS image guided Pap, HPV regardless of Pap result SEE RESULT S BELOW CASE REPOR T: Cytol ogy Gynec ologi jose e Repor t Case: [id number] Autho rowan garcia Provi royce: Eliezer Candelario Colle cted: 05/17 1501 SENIOR TECHNICAL ANALYST Order ing Locat ion: [place] Patho logy [...] ibrahima (if appli cable ): Not Available [facility] [address] [place] [address], [phone], 05/21/2022 16:51:29 05/22/20 20 05/22/2020 MAMMO , scree eliot, bilat eral No observ ation record ed. [facility] ([facility]) [address] [place] [address] [facility], [place], [address], 06/03/2020 18:31:55 01/29/20 22 01/27/2022 MAMMO , scree eliot, bilat eral No observ ation record ed. [address] [address], [place], [address], 02/01/2022 20:54:54 02/05/20 22 DEXA, axial skele ton + verte bral fract ure asses sment No observ ation record ed. [email or web address] [facility] [address], [place], [address], 02/11/2022 16:03:57 Result Notes Documentation Provider Name and Address Organization Details Recorded Time General Health Panel, Blood : vit D pending L Khoi [facility] 05/13/2021 13:27:09 Problems Name Problem SNOMED Code Status Onset Date Resolution Date Notes Provider Name and Address Organization Details Recorded Time Screenin g for malignan t neoplasm of cervix Completed 201005/17/2022 Screening for malignant neoplasms of the cervix;Re corded Elsewhere : No Locati on: [facility] So urce: EHR Chron ic: N Practic e ID: 0001 Bill able Time: 10:30:00 AM Linda Lees [facility] 2 09:30:22 Amenorrh ea [id number] Completed 201105/17/2022 Absence of menstruat ion;Recor ded Elsewhere : No Locati on: [facility] So urce: EHR Chron ic: N Practic e ID: 0001 Bill able Time: 09:30:00 AM Linda Lees [facility] 2 09:30:22 Malaise and fatigue [id number] Completed 201405/17/2022 Fatigue;R ecorded Elsewhere : No Locati on: [facility] So urce: EHR Chron ic: N Practic e ID: 0001 Bill able Time: 09:00:00 AM Linda Lees [facility] 2 09:30:22 Speciali zed medical examinat ion Completed 201405/17/2022 Gynecolog ical Examinati on;Record ed Elsewhere : No Locati on: [facility] So urce: EHR Chron ic: N Practic e ID: 0001 Bill able Time: 09:00:00 AM Linda Lees [facility] 2 09:30:22 Adult health examinat ion Completed 201405/17/2022 Routine general medical examinati on at a health care facility; Practice ID: [id number] Linda Lees [facility] 2 09:30:22 Obesity [id number] Completed 201405/17/2022 Obesity;R ecorded Elsewhere : No Locati on: [facility] So urce: EHR Chron ic: N Practic e ID: 0001 Bill able Time: 09:00:00 AM Linda davenport [facility] 2 09:30:22 Screenin g for malignan t neoplasm of rectum Completed 201505/17/2022 Encounter for screening for malignant neoplasm of rectum;Re corded Elsewhere : No Locati on: [facility] So urce: EHR Chron ic: N Practic e ID: 0001 Bill able Time: 08:30:00 AM Linda Lees [facility] [address] 09:30:[address] Concept Completed 201505/17/2022 Encntr for irish moss operator exam (general) (routine) w/o abn findings; Recorded Elsewhere : No Locati on: [facility] So urce: EHR Chron ic: N Practic e ID: 0001 Bill able Time: 08:30:00 AM Linda Lees [facility] 2 09:30:22 Finding of upper limb Completed 201505/17/2022 Localized swelling, mass and lump, upper limb, bilateral ;Practice ID: [id number] Linda Lees [facility] 2 09:30:22 Neoplast ic disease Completed 201605/17/2022 Neoplasm of unsp behavior of bone, soft tissue, and skin;Bud rded Elsewhere : No Locati on: [facility] So urce: EHR Chron ic: N Practic e ID: 0001 Bill able Time: 08:30:00 AM Linda Lees [facility] 2 09:30:22 Finding by site Completed 201605/17/2022 Dermatiti s, unspecifi ed;Record ed Elsewhere : No Locati on: [facility] So urce: EHR Chron ic: N Practic e ID: 0001 Bill able Time: 08:15:00 AM Linda Lees [facility] 2 09:30:22 Micturit ion finding Completed 201605/17/2022 Urinary incontine nce;Recor ded Elsewhere : No Locati on: [facility] So urce: EHR Chron ic: N Practic e ID: 0001 Bill able Time: 08:15:00 AM Linda Lees [facility] 2 09:30:[address] Concept Completed 201705/17/2022 Encntr for general adult medical exam w/o abnormal findings; Recorded Elsewhere : No Locati on: [facility] So urce: EHR Chron ic: N Practic e ID: 0001 Bill able Time: 08:30:00 AM Linda Lees [facility] 2 09:30:22 Problem Notes None recorded. Procedures Surgical History Date Name Laterality Status Provider Name and Address Organization Details Recorded Time 01/28/20 Date of Last Mammogram completed [facility] 05/17/2022 09:43:42 04/23/20 Date of Last Pap Smear completed [facility] 05/17/2022 09:42:13 09/26/19 07 chest wall excision completed [facility] 04/23/2020 10:20:15 Caesarean Section completed [facility] 05/17/2022 09:45:46 procedure on elbow completed [facility] 04/23/2020 10:19:55 refashioning of ingrowing toenail completed [facility] 04/23/2020 10:20:28 procedure on knee completed [facility] 04/23/2020 10:20:35 Imaging Results None recorded. Procedure Notes None recorded. Medical Equipment None Reported. Allergies Allergen ID Allergen Name Allergen Category Reaction Reaction Severity Criticality Documentation Date Start Date Code Code System Note Provider Name and Address Organization Details Recorded Time 1495 amoxicill in medicatio n Not available Not available Not available 04/23/2020 723 RxNorm Lola davenport MD - [facility] 0 10:17:59 Medications Name Sig [...] Prescrib ed Elsewher e: No Locat ion: [facility] M odify By: gail dunbaruntfritz DateTime : [...] Prescrib ed Elsewher e: Yes Loca tion: [facility] M odify By: fransisca gaitan DateTime : [...] Prescrib oliva Florez e: Yes Loca tion: [facility] M odify By: gail dunbarunter DateTime : [...] Updated DateTime 04/23/2020 2057.4 cm 0.2 kg/m2 43236.59 g 121/73 mm[Hg] [facility] 04/23/2020 11:07:37 Date Recorded Body height Body mass index (BMI) Body weight Systolic And Diastolic Provider Name and Address Organization Details Last Updated DateTime 04/29/2021 168.91 cm 25.3 kg/m2 04955.19 g 112/67 mm[Hg] [facility] 04/29/2021 09:51:58 Date Recorded Body height Body mass index (BMI) Body weight Systolic And Diastolic Provider Name and Address Organization Details Last Updated DateTime 05/08/2020 170.18 cm 24.6 kg/m2 24728 g 109/68 mm[Hg] [facility] 05/08/2020 11:55:21 Date Recorded Body height Body mass index (BMI) Body weight Systolic And Diastolic Provider Name and Address Organization Details Last Updated DateTime 05/17/2022 168.28 cm 25 kg/m2 47862.41 g 126/72 mm[Hg] [facility] 05/17/2022 09:45:17 Social History Question Answer Notes LastModified by Organizat ion Details LastModified Time Tobacco Smoking Status Never Smoker Linda Lees [facility] 05/17/2022 09:45:42 Do You Have An [...] Or The Highest Degree You Have Received? [id number] Information not available 05/17/2022 Do You Use [...] anxious, or unable to sleep at night)? [id number] Information not available 05/17/2022 Family History Relationship Description Onset Age of this Age Resolved Age Notes LastModified by Organization Details LastModified Time Mother Disorder of thyroid gland [email or web address] Not available 2019 10:18:44 Mother Acute stroke [email or web address] Not avai lable 05/17/2022 09:29:12 Sister Disorder of thyroid gland [email or web address] Not available 2019 10:18:44 Father Acute stroke [email or web address] Not avai lable 05/17/2022 09:29:12 Father Malignant neoplasm of skin [email or web address] Not available 2021 09:29:12 Brother Heart irregularly irregular [email or web address] Not available 2021 09:29:12 Medical History Condition Response Allergies (Food, seasonal, environmental ) Y Other N Drug/Latex Allergies/Reactions Y Breast Cancer N Blood Transfusion N Dermatologic Disorders N Lung Disease N Defects or Inherited Disease N Breast Problem N Gestational Diabetes N Hematologic disorders N Anesthesia Complications Y History of STI N Deep Vein Thrombosis N Polycystic ovary syndrome N Anxiety Disorder N Autoimmune disease N Arthritis N Polyps N Infertility N Acid Reflux (GERD) N History of abnormal pap N Cancer N Varicosities N Stroke N Neurologic/Epilepsy N Endometriosis N High Cholesterol N Fibromyalgia N Headaches N Kidney Disease N Heart Problems Y Thyroid Problems N Kidney or Bladder Problems N GI Problems N Eating Disorder [...] ICD10 Code Diagnosis IMO Codes Diagnosis Note [id number] Sade Bonilla [facility] [address] [address] 04/23/2020 10:59:04 04/23/2020 12:52:57 Gynecologic examination 29658750 Z01.419 Take Calcium with Vitamin D 12-1500mg daily. Do monthly self breast exams. It is advised to get annual flu shot in the fall and she could obtain at [facility] or [facility] care clinic. If you haven't received the [...] call or respond to this email Adult [facility] th examination [id number] Z00.00 Family Hx thyroid issues. Thinning hair. [facility] Fasting [address] Sade Bonilla [facility] [address],[facility] [place] [address] 05/08/2020 11:48:37 05/11/2020 15:07:52 Hypothyroidism 39407200 E03.9 We agreed to complete full thyroid [...] counseling and review of plan of care. [address] Sade Bonilla [facility] [address],[place] [address] 04/29/2021 09:32:47 04/29/2021 10:34:23 Gynecologic examination 74245884 Z01.419 Take Calcium with Vitamin D 12-1500mg daily. Do monthly self breast exams. It is advised to get annual flu shot in the fall and she could obtain at [facility] or [facility] care clinic. If you haven't received the [...] issues or concerns Note: Son goes to [employer] for engineerin g Adult heal th examination 561781607 Z00.00 Updated routine labs requested. [id number] Sade Bonilla [facility] [address],[place] [address] 05/17/2022 09:28:58 05/17/2022 10:06:43 Gynecologic examination 50271081 Z01.419 Take Calcium with Vitamin D 12-1500mg daily. Do monthly self breast exams. It is advised to get annual flu shot in the fall and she could obtain at [facility] or [facility] clinic. If you haven't received the [...] 05/15/2022 1 [place] [id number] Claude Denise [id number] Claude Denise Notes Date Note Type [...] to date on colonoscopy screening. Sade Bonilla [facility] [address], [place], [address], [facility] 04/23/2020 12:33:38 0 text/html ROS as noted in the HPI Patient is here to f/u recent abn TSH levels. [facility] [address], [place], [address], [facility] 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 Sade Bonilla [facility] [address], [place], [address], [facility] 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 Sade Bonilla, [facility] [address], [place], [address], [facility] 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
--- OUTSIDE RECORDS SUMMARY | 2025-07-30 01:06 | XMS_ITS | Clinical Summary ---
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
--- OUTSIDE RECORDS SUMMARY | 2025-07-30 01:06 | XMS_ITS | Encounter Summary ---
Author Organization [facility] Address [address] [place] [address] Care Team Providers Care Manager Recovery Name Role Phone Jeannine Hollis MD Primary Care Provider [phone] Reason for Visit * Reason Onset Date Comments Wound Care 05/13/2025 Encounter Details Date Type Department Care Team (Late st Contact Info) Description 05/13/2025 Telephone [facility] [address] [place] [address] Luisa Turcios MD [address] [facility] [address] [place] [address] Wound Care Social History Tobacco Use Types [...] if the patient can come to the [facility] tomorrow 05/16/25. 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
--- OUTSIDE RECORDS SUMMARY | 2025-07-30 01:06 | XMS_ITS | Encounter Summary ---
Author Organization 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 Support [facility] - Dermatology [address] [place] [address] documented as of this encounter Procedures Procedure Name Priority Date/Time Associated Diagnosis Comments DERMATOPATHOLOGY Routine 03/28/2025 12:0 0 AM CDT documented in this encounter Results * DERMATOPATHOLOGY (03/28/2025 12:00 AM CDT) Case Report Dermatopathology Report Case: [id number] Authorizing Provider: Loy Perez MD Collected: 03/28/2025 12:00 AM Ordering Location: [facility] - Received: 04/02/2025 07:55 [...] determined by the Dermatopathology Laboratory at [facility], directed by Dr. Edgardo Bynum. These tests need not be, and therefore are not, approved by the [place] Food and Drug Administration. The tests are used for clinical purposes. Billing Codes Specimen Charges Stain Charges 72424 1 55188 1 5:37 PM CDT DERMATOPATHOLOGY LABORATORY Embedded Images 5:37 PM CDT DERMATOPATHOLOGY LABORATORY Pathology/Cytolog y TISSUE SPECIMEN FROM SKIN / Unknown 03/28/2025 04/02/2025 7:55 AM CDT Loy Perez MD LAB - PATHOLOGY/CYTOLOGY ORDERAB LES Final Result DERMATOPATHOLOGY LABORATORY [facility] - Department of Dermatology [facility] Medicine [address] [place] [address], [address] [phone] documented in this encounter Visit Diagnoses Not on filedocumented in this encounter Care Teams Thread Milling Machine Set Up Operator Relationship Specialty Start Date End Date Jeannine Hollis MD [address] [place] [address] PCP - General Family Medicine 05/02/25 documented as of this encounter
--- OUTSIDE RECORDS SUMMARY | 2025-07-30 01:06 | XMS_ITS | Clinical Summary ---
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 Gender Identity Not on file Sexual Orientation Not on file Last Filed Vital Signs Vital Sign Reading Time Taken Comments Blood Pressure 114/72 11/10/2022 8:36 AM FIREBOAT OPERATOR Pulse 60 11/10/2022 8:36 AM FIREBOAT OPERATOR Temperature - - Respiratory Rate - - Oxygen Saturation 97% 11/10/2022 8:36 AM FIREBOAT OPERATOR Inhaled Oxygen Concentration - - Weight 75.3 kg (166 lb) 11/10/2022 8:36 AM FIREBOAT OPERATOR Height 170.2 cm (5' 7) 11/10/2022 8:36 AM FIREBOAT OPERATOR Body Mass Index 26 11/10/2022 8:36 AM FIREBOAT OPERATOR Plan of Treatment Health Maintenance Due [...] patient's age to complete this topic [facility] ACCESS CHOICE Member Subscriber Plan / Payer (Ef fective 2023-Present) Name:Luna Denise Relation to Subscriber:Self Name:Luna Denise Payer ID:[id number] (NAIC) Group ID:[id number] Type: ALLIANCE Address: [address] [place] [id number] Care Teams Hotel Engineer Relationship Specialty Start Date End Date Jeannine Hollis MD PCP - General Family Medicine 09/24/22
--- OUTSIDE RECORDS SUMMARY | 2025-07-30 01:06 | XMS_ITS | Clinical Summary ---
Author Organization [facility] Address [address] [place] [address] Care Team Providers Care Wet Process Miller Head Assistant Name Role Phone Unavailable Primary Care Provider Unavailabl e Social History Tobacco Use Types Packs/Day Years Used Date Smoking Tobacco: Never Assessed Comments Unknown Sex and Gender Information Value Date Recorded Sex Assigned at Not on file Legal Sex Female 8:49 AM EDT Gender Identity Not on file Sexual Orientation Not on file Plan of Treatment Upcoming Encounters Date Type Department Care Team (Late st Contact Info) Description 08/28/2025 10:00 AM EST Initial consult [facility] [place] [address] [place] [address] [place] [address] New Patient Appt Health Maintenance Due Date Last Done Comments CT Colonography 1963 Fecal Occult Blood Testing 1963 HIV Screen 1963 Hepatitis C Screen 1963 Lipid Panel 1963 Sigmoidoscopy 1963 Cologuard 1963 Colonoscopy 1963 Colorectal Cancer Screening 1963 Mammogram 1963 Pap Smear 1963 Annual Physical/Well Child Check 10/25/1966 Depression Screening 12/23/1974 Adult Tetanus (Td And Tdap) 12/23/1981 Pneumococcal Vaccine: 50+ (1 of 1 - PCV) 12/23/2013 Shingrix (1 of 2) 12/23/2013 COVID-19 Vaccine ( - 2024-2 6 season) 2025 Influenza Vaccine (#1) 2025 RSV Immunization or 50+ (1 - 1-dose 75+ series) 12/23/2038 HPV Vaccines Aged Out No longer eligi ble based on patient's age to complete this topic Hepatitis A Vaccines Aged Out No long er eligible based on patient's age to complete this topic Hib Vaccines Aged Out No longer eligi ble based on patient's age to complete this topic Meningococcal ACWY Vaccine Aged Out N o longer eligible based on patient's age to complete this topic Meningococcal B Vaccine Aged Out No l onger eligible based on patient's age to complete this topic
[2025-07-30] MEDS: ACETAMINOPHEN 500 MG TABLET 1000 MG PO (06:29)
[2025-07-30] MEDS: LACTATED RINGERS 1,000 ML 30 ML IV CONT ×2 (06:35→10:13)
[2025-07-30] MEDS: TRANEXAMIC ACID 1,000MG/ISO100 1,000 MG/100 ML BAG 200 MG IVPB (06:36)
--- NOTE | 2025-07-30 07:19 | WPDHPUPDATE1 ---
History and Physical Update Update Date/Time: 07/30/25 07:19 History and Physical has been reviewed, including an updated exam of the patient. There are NO changes in the patient's condition. Risks, benefits, and alternatives have been discussed and questions answered. Patient agrees to proceed with procedure.
--- NOTE | 2025-07-30 07:26 | WPDANESEPPF ---
Anes - Initial Pre Proc Eval Procedure: Operation Date: 07/30/25 07:30 Proposed Procedures p Left Custom Total Knee Arthroplasty - Vik Casey MD Date/Time: 07/30/25 07:26 Surgeon: Vik Casey MD Pre Op Diagnosis: primary oa left knee Patient Data Age: 59 Gender: F Height: 1.7 m Weight: 75 kg Last Vital Signs Temp 97.6 F 07/30/25 06:10 Pulse 70 07/30/25 06:10 Resp 18 07/30/25 06:10 BP 117/64 07/30/25 06:10 Pulse Ox 100 07/30/25 06:10 O2 Del Method Room Air 07/30/25 06:10 Allergies Allergy/AdvReac Type Severity Reaction Status Date / Time midazolam Allergy Severe RASH, Verified 07/30/25 07:20 AND HARD TO BREATH Home Medications ?Medication ?Instructions ?Recorded ?Confirmed ?Type multivitamin (Daily Multi-Vitamin 1 tablet PO DAILY 08/27/20 07/30/25 History tablet) cholecalciferol (vitamin D3) 10 10 mcg PO DAILY 05/20/22 07/30/25 History mcg (400 unit) capsule collagen, hydrolyzed 1 1 tablet PO DAILY 05/20/22 07/30/25 History gram-ascorbate calcium 10 mg tablet loratadine 10 mg tablet (Claritin) 10 mg PO PRN PRN allergy symptoms 01/24/24 07/15/25 History methylprednisolone 4 mg tablets in See Rx Instructions PO .COMPLEX 05/25/25 07/15/25 Rx a dose pack (Medrol (Brijesh)) #21 ea aspirin 81 mg tablet,delayed 81 mg PO BID 14 days #28 tabs 07/30/25 Rx release meloxicam 15 mg tablet 15 mg PO DAILY #30 tabs 07/30/25 Rx oxycodone-acetaminophen 5 mg-325 1 - 2 tablet PO Q4-6H PRN pain #30 07/30/25 Rx mg tablet tabs prednisone 5 mg tablet 5 mg PO DAILY 3 weeks #21 tabs 07/30/25 Rx Laboratory Tests 07/30/25 06:39 Blood Type A Positive Antibody Screen Pending Patient hx anesthesia problems: none Family hx anesthesia problems: none Results Review: All pre-operative results and documents have been reviewed as part of the pre-operative evaluation. [facility] Past Medical History Medical History Hypothyroidism Vitamin D deficiency Degenerative tear of left medial meniscus Alopecia Bradycardia Surgical History Surgical History History of knee replacement (~01/24/24) Hx of tonsillectomy History of (~2001) History of arthroscopy of left knee (~2017) History of elbow surgery (~1995) Family History Family History Mother Patient's mother is , Onset Age: 87 Father Patient's father is , Onset Age: 89 Mother Family history of arthritis Social History Social History Smoking status: Never smoker Second hand tobacco smoke exposure: No Additional smoking assessment comments: DENIES ANY FORM OF TOBACCO USE Alcohol intake: never Drinks per week: 2 Alcohol use details: WINE Substance use: never Do You Feel Safe in your Home?: Yes Lack of Transportation: No Lack of Food: Never True Current Housing: I Have Housing Concerned About Future Housing: No Difficulty Paying Gas/Electric Bills: No Difficulty Paying for Meds: No Currently Unemployed: No Education: Decline to Answer Difficulty w/ Childcare or Family Care: No Living arrangements: with family Spiritual care concerns: No Anes - Eval Final PreProcedure Day of Procedure 07/30/25 07:26 Patient weight: normal Heart: bradycardia Lungs: clear to auscultation Airway: Mallampati scale class II Neurological: alert and oriented Last oral intake: >/= 8 hours ASA classification: III Emergent: no Anesthetic plan: proceed Anesthesia type and monitoring: general LMA and standard monitoring Results Review: All pre-operative results and documents have been reviewed as part of the pre-operative evaluation. Informed Consent: The patient's anesthetic plan and its attendant risks and benefits were discussed with the patient/family/POA. Questions were solicited and answers provided to the satisfaction of the patient/family/POA.
[2025-07-30] MEDS: ceFAZolin 2 GM in SODIUM CHLORIDE 0.9% IV 50 ML 100 ML IVPB ×3 (07:30→23:08)
[2025-07-30] MEDS: SODIUM CHLORIDE 0.9% IV 37.7 ML, MORPHINE SULFATE INJ (*CRX) 2 MG, ROPivacaine HCL 1% 2... INFILTRATE (08:20)
[2025-07-30] MEDS: GENTAMICIN BONE CEMENT REFOBACIN 1 EACH TOPICAL (08:41)
[2025-07-30] MEDS: TRANEXAMIC ACID 1,000 MG/10 ML AMPUL 1000 MG IV PUSH (09:47)
[2025-07-30] MEDS: KETOROLAC 15 MG/ML VIAL (*BKC) IV PUSH (09:48)
[2025-07-30] MEDS: ASPIRIN 81 MG ENTERIC TABLET PO ×2 (12:26→20:29)
[2025-07-30] MEDS: ACETAMINOPHEN 325 MG TABLET 650 MG PO ×3 (12:27→23:33)
[2025-07-30] MEDS: FAMOTIDINE 20 MG TABLET PO ×2 (12:27→20:29)
[2025-07-30] MEDS: MELOXICAM 7.5 MG TABLET PO ×2 (12:27→17:35)
[2025-07-30] MEDS: SENNA/DOCUSATE SODIUM TABLET 2 TAB PO (12:28)
[2025-07-30] MEDS: oxyCODONE/ACETAMINOPHEN (*CRX) 5-325 MG TABLET 1 TABLET PO ×2 (12:33→16:19)
--- NOTE | 2025-07-30 16:16 | W.PM.PROC2 ---
Procedure Note - Detailed Date of Procedure 07/30/25 Pre-op Diagnosis Left knee degenerative arthritis. Post-op Diagnosis Same Procedure Performed Custom total knee arthroplasty, left. Surgeon Vik Casey MD Creasing And Cutting Press Feeder Roseann Bonilla PA-C Anesthesia General Findings Severe disease. Good bone quality. Popliteus tendon released due to impingement. Optimal fit of custom implants. -1 preoperative slope corrected to 5 degrees according to preoperative CT guided planning. Description of Procedure Preoperative antibiotics were given. The limb was prepped and draped in the usual sterile fashion with a well-padded tourniquet high on the thigh. The limb was exsanguinated and the tourniquet inflated to 300 mmHg during exposure and cementation. A longitudinal incision was created just medial to the patella. A subvastus approach to the knee was performed. Arthrotomy was taken down through the joint capsule. No significant releases were initially taken. The femur was exposed and the F1 jig was applied. The coring tool was used to remove the cartilage for the F2 jig to sit flush with the bone. The jig was pinned and the distal cut carefully taken. Caliper measurements confirmed appropriate bony resections according to the preoperative templated plan. The F4 cutting jig for the femur was applied, at the standard rotation. The AP and anterior chamfer cuts were taken. The F5 jig was applied and the posterior chamfer cuts were taken. The tibia was prepared using the T1 jig, after removing cartilage for the jig contact points. Proper alignment was checked with the alignment paola. The tibia was cut using the T1u guide. Gap balancing was performed. Gap measurements were taken and the knee was trialed. Excellent alignment and soft tissue balancing was confirmed. The posterior cruciate ligament was recessed along the proximal tibia. The patella tracked well. A lateral facetectomy was performed. Meniscal remnants were removed. The trial components were assembled. Excellent range of motion and proper soft tissue balancing were confirmed throughout the full range of motion. Patellar tracking was excellent. The knee was copiously irrigated periodically throughout the procedure. The real implants were cemented into position. Excess cement was carefully removed. Snapping of the popliteus was treated with release of the tendon. The wound was closed in layers with interrupted #1 Vicryl suture, 2-0 strata fix suture, 0 strata fix suture, 2-0 strata fix suture. Steri-Strips placed on the skin with the knee flexed. Sterile bulky dressing applied. The patient was brought to the recovery room in stable condition. There were no complications. Implants Conformis Custom total knee arthroplasty. Cemented. Cruciate retaining. 9D insert. Estimated Blood Loss 100 Drains No Complications No immediate complications Condition Stable Disposition PACU [facility] Billing Surgery - Charge Forward: Surgery Billing
[2025-07-31 00:02] VITALS: BP 102/55; PULSE 54; RESP 18; TEMP 36.8; O2SAT 96
[2025-07-31 05:13] VITALS: BP 103/60; PULSE 64; RESP 18; TEMP 36.4; O2SAT 97
[2025-07-31] MEDS: oxyCODONE/ACETAMINOPHEN (*CRX) 5-325 MG TABLET 1 TABLET PO (06:11)
[2025-07-31] MEDS: ACETAMINOPHEN 325 MG TABLET 650 MG PO ×2 (06:12→13:19)
[2025-07-31] MEDS: ceFAZolin 2 GM in SODIUM CHLORIDE 0.9% IV 50 ML 100 ML IVPB (06:12)
[2025-07-31 06:18] LABS: Hematocrit 33.5 % (37.0-47.0); Hemoglobin 11.0 g/dL (12.0-15.0); Immature Granulocyte Percent A 0.4 % (0-0.5); Lymphocytes Absolute Auto 1.25 K/mm3 (0.9-3.2); Mean Corpuscular HGB Conc 32.8 g/dl (32-36); Mean Corpuscular Hemoglobin 31.3 pg (26-34); Mean Corpuscular Volume 95.2 fl (80-100); Nucleated Red Blood Cells Absolute Auto 0.000 K/mm3 (0.0-0.012); Nucleated Red Blood Cells Perc 0.0 % (0.0-0.2); Platelet Count Result 229 k/mm3 (150-375); Red Blood Count 3.52 M/mm3 (4.2-5.4); White Blood Count 13.9 K/mm3 (4.5-10.0)
[2025-07-31 06:41] LABS: Anion Gap 4 mmol/L (4-12); Blood Urea Nitrogen 9 mg/dL (7-17); Calcium 9.0 mg/dL (8.4-10.2); Carbon Dioxide 27 mmol/L (22-30); Chloride 106 mmol/L (98-107); Estimated CRCL calculation 80 ml/min; Estimated Glomerular Filt Rate > 60; Glucose 104 mg/dL (65-110); Potassium 4.1 mmol/L (3.4-5.0); Sodium 137 mmol/L (137-145)
[2025-07-31 08:00] VITALS: PULSE 63; RESP 18; O2SAT 98
[2025-07-31 08:26] VITALS: PULSE 63; O2SAT 98
[2025-07-31] MEDS: ASPIRIN 81 MG ENTERIC TABLET PO (10:52)
[2025-07-31] MEDS: FAMOTIDINE 20 MG TABLET PO (10:52)
[2025-07-31] MEDS: MELOXICAM 7.5 MG TABLET PO (10:52)
[2025-07-31] MEDS: SENNA/DOCUSATE SODIUM TABLET 2 TAB PO (10:52)
== END 2025-07-31 13:40 | disposition home or self-care (01) ==
LOC: ANHSURGERY 07:08 → ANH3MEDSUR 11:30
PROVIDERS: Physician Assistant Surgical; PCP Family Medicine; Visit Provider Orthopaedic Surgery
PROC: (CPT 27447; principal; 2025-07-30 07:30)
DX: M17.12 Unilateral primary osteoarthritis, left knee (principal); Z79.899 Other long term (current) drug therapy
CPT/HCPCS: 27447; 36415; 73560; 80048; 85025; 86850; 86900; 86901; 97110; 97116; 97161; 97165; 97530; 97535; J0690; A9270; C1713; C1776; J0166; J1100; J1171; J1596; J1885; J2003; J2250; J2270; J2405; J2704; J2795; J3010; J3290; J7120; J7512

== ENCOUNTER 2025-08-14 12:21 | Outpatient (CLI) | payer BC, SELFPAY ==
--- NOTE | ~2025-08-14 | XR_ITS ---
EXAMINATION: XR knee LT 3V, 08/14/2025 12:40 TACTICAL RESPONSE GROUP OFFICER HISTORY: Z96.652 - Presence of left artificial knee joint COMPARISON: No comparisons available. Findings: No acute fracture or malalignment. Arthroplasty intact Soft tissues unremarkable. Impression: No acute fracture or malalignment. Reviewed, dictated and finalized at location P. ICAL RESPONSE GROUP OFFICER Impression: No acute fracture or malalignment.
--- OUTSIDE RECORDS SUMMARY | 2025-08-14 17:47 | XMS_ITS | Clinical Summary ---
Author Organization [facility] Address [address] [place] [address] Care Team Providers Care Mortgage Broker Name Role Phone Unavailable Primary Care Provider [...] on file Legal Sex Female 4:30 AM FERRYBOAT DECKHAND Gender Identity Not on file Sexual Orientation [...]
--- OUTSIDE RECORDS SUMMARY | 2025-08-14 17:47 | XMS_ITS | Encounter Summary ---
Author Organization 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 Clinical Support [facility] - Dermatology [address] [place] [address] documented as of this encounter Procedures Procedure Name Priority Date/Time Associated Diagnosis Comments DERMATOPATHOLOGY Routine 03/28/2025 12:0 0 AM CDT documented in this encounter Results * DERMATOPATHOLOGY (03/28/2025 12:00 AM CDT) Case Report Dermatopathology Report Case: [id number] Authorizing Provider: Loy Perez MD Collected: 03/28/2025 12:00 AM Ordering Location: [facility] - Received: 04/02/2025 07:55 [...] determined by the Dermatopathology Laboratory at [facility], directed by Dr. Edgardo Bynum. These tests need not be, and therefore are not, approved by the [place] Food and Drug Administration. The tests are used for clinical purposes. Billing Codes Specimen Charges Stain Charges 78533 1 [id number] 1 5:37 PM CDT DERMATOPATHOLOGY LABORATORY Embedded Images 5:37 PM CDT DERMATOPATHOLOGY LABORATORY Pathology/Cytolog y TISSUE SPECIMEN FROM SKIN / Unknown 03/28/2025 04/02/2025 7:55 AM CDT Loy Perez MD LAB - PATHOLOGY/CYTOLOGY ORDERAB LES Final Result DERMATOPATHOLOGY LABORATORY [facility] - Department of Dermatology [facility] Medicine [address] [place] [address], [address] [phone] documented in this encounter Visit Diagnoses Not on filedocumented in this encounter Care Teams Spinner Iron Relationship Specialty Start Date End Date Jeannine Hollis MD [address] [place] [address] PCP - General Family Medicine 05/02/25 documented as of this encounter
--- OUTSIDE RECORDS SUMMARY | 2025-08-14 17:47 | XMS_ITS | Clinical Summary ---
Author Organization [facility] Address [address] [place] [address] Care Team Providers Care Plant Machinist Name Role Phone Jeannine Hollis MD Primary Care Provider [phone] Source Comments [facility],non-owned Affiliates and Associated Physician Practices is amultiple site organization consisting of ambulatory clinics and hospital sitesin [place], [place] and [place]. This disclosure is being madepursuant to the Care Everywhere program and may not contain all information available regarding this patient. Last updated 18.[facility] Octavian Allergies Active Allergy Reactions Criticality Noted Date [...] Office Visit [facility] - Dermatology [address] [place] [phone] Hypertrophic scar (Primary Dx); Personal history of skin cancer 07/11/2025 Travel 06/06/2025 10:00 AM CDT Clinical Support [facility] - Dermatology [address] [place] [phone] Luisa Turcios MD Scar ; Personal history of skin cancer 06/06/2025 Travel 05/21/2025 2:50 PM CDT Office Visit [facility] - Dermatology [address] [facility] [address] [place] [address] Personal history of skin cancer (Primary Dx) 05/21/2025 Travel from Last 3 Months Social History Tobacco [...] st Contact Info) Description 08/29/2025 8: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 Clinical Support [facility] - Dermatology [address] [place] [phone] Health Maintenance Due Date Last Done Comments [...] 12/19/1981 DTAP/TDAP/TD VACCINES (1 - Tdap) 12/23/1982 PAP with HPV 12/23/1993 PNEUMOCOCCAL VACCINE 50+ (1 of 1 - PCV) 12/23/2013 ZOSTER VACCINE (1 of 2) 12/23/2013 DEPRESSION SCREENING 09/26/2024 Cervical Cancer Screening 05/17/2025 PAP SMEAR 05/17/2025 05/17/2022 COVID-19 VACCINE (3 [...] patient's age to complete this topic Insurance JOE Care Teams Plant Machinist Relationship Specialty Start Date End Date Jeannine Hollis MD [address] [place] [address] PCP - General Family Medicine 05/02/25
--- OUTSIDE RECORDS SUMMARY | 2025-08-14 17:47 | XMS_ITS | Encounter Summary ---
Author Organization [facility] Address [address] [facility] [address] Care Team Providers Care Broom Machine Operator Name Role Phone Jeannine Hollis MD Primary Care Provider [phone] Reason for Visit * Reason Onset Date Comments Wound Care 05/13/2025 Encounter Details Date Type Department Care Team (Late st Contact Info) Description 05/13/2025 Telephone [facility] - Dermatology [address], [address] [place] [address] Luisa Turcios MD [address] [facility] [address] [place] [address] Wound Care Social History Tobacco Use Types [...] if the patient can come to the [facility] tomorrow 05/16/25. 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
--- OUTSIDE RECORDS SUMMARY | 2025-08-14 17:47 | XMS_ITS | Clinical Summary ---
Author Organization [facility] Address [address] [place] [address] Care Team Providers Care Solar Business Developer Name Role Phone Unavailable Primary Care Provider [...] Description 08/28/2025 10:00 AM EST Initial consult [facility] [place] [address] [place] [address] Marcelle Mistry MD [address] [place] [address] New Patient Appt Health Maintenance [...]
--- OUTSIDE RECORDS SUMMARY | 2025-08-14 17:47 | XMS_ITS | Clinical Summary ---
Author Organization [facility] Address [address] [place] [address] Care Team Providers Care Motion Picture Actor Name Role Phone Jeannine Hollis MD Primary Care Provider [phone] Allergies Active Allergy Reactions Criticality Noted Date Comments Amoxicillin Unknown 09/29/2022 Medications albuterol HFA (PROVENTIL HFA,VENTOLIN HFA,PROAIR HFA) 90 mcg/actuation inhaler INHALE 1 PUFF BY MOUTH EVERY 4 HOURS NEEDED FOR SHORTNESS OF BREATH AND FOR WHEEZING 2 Active ugcvdrmj-msy-ep rrous fumarate (Multi Vitamin) 9 mg iron/15 [...] on file Legal Sex Female 11:47 AM MESS ATTENDANT Gender Identity Not on file Sexual Orientation Not on file Last Filed Vital Signs Vital Sign Reading Time Taken Comments Blood Pressure 114/72 11/10/2022 8:36 AM MESS ATTENDANT Pulse 60 11/10/2022 8:36 AM MESS ATTENDANT Temperature - - Respiratory Rate - - Oxygen Saturation 97% 11/10/2022 8:36 AM MESS ATTENDANT Inhaled Oxygen Concentration - - Weight 75.3 kg (166 lb) 11/10/2022 8:36 AM MESS ATTENDANT Height 170.2 cm (5' 7) 11/10/2022 8:36 AM MESS ATTENDANT Body Mass Index 26 11/10/2022 8:36 AM MESS ATTENDANT Plan of Treatment Health Maintenance Due Date [...] patient's age to complete this topic Insurance [facility] Who Works Around [employer] [facility] ACCESS CHOICE Member Subscriber Plan / Payer (Ef fective 2023-Present) Name:Luna Denise Relation to Subscriber:Self Name:Luna Denise Payer ID:[id number] (NAIC) Group ID:[id number] Type: [employer] Address: [address] [place] [phone] Care Teams Motion Picture Actor Relationship Specialty Start Date End Date Jeannine Hollis MD PCP - General Family Medicine 09/24/22
== END 2025-08-14 12:22 | disposition home or self-care (01) ==
PROVIDERS: PCP Family Medicine; Visit Provider Orthopaedic Surgery
DX: Z96.652 Presence of left artificial knee joint (principal)
CPT/HCPCS: 73562